=== PATIENT | male | born 1980 | race African-American/Black ===

== ENCOUNTER 2018-01-14 12:33 | Inpatient (IN) | payer OTHER ==
[2018-01-14 12:57] VITALS: BMI 26.6
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
[2018-01-14] MEDS ORDERED: MAGNESIUM CITRATE 300 ML BOTTLE PO PRN (16:02)
[2018-01-14] MEDS ORDERED: P-EPHED 60MG/TRIPROLIDI 2.5MG TABLET PO PRN (16:02)
[2018-01-14] MEDS ORDERED: ACETAMINOPHEN 325 MG TABLET (FP) PO PRN (16:02)
[2018-01-14] MEDS ORDERED: MAG HYDROX/AL HYDROX/SIMETH 30 ML UNIT-DOSE CUP PO PRN (16:02)
[2018-01-14] MEDS ORDERED: MAGNESIUM HYDROX 2400MG/30ML ORAL SUSPENSION 30 ML CUP PO PRN (16:02)
[2018-01-14] MEDS ORDERED: NICOTINE POLACRILEX 2 MG GUM BC PRN (16:02)
[2018-01-14] MEDS ORDERED: chlordiazePOXIDE HCL 25 MG CAPSULE PO PRN (16:02)
[2018-01-14] MEDS ORDERED: guaiFENesin/D-METHORPHAN HB 10 ML UNIT-DOSE CUPS PO PRN (16:02)
[2018-01-14] MEDS ORDERED: LOPERAMIDE HCL 2 MG CAPSULE PO PRN (16:02)
[2018-01-14] MEDS ORDERED: MENTHOL/PHENOL 1 EACH UD MM PRN (16:02)
[2018-01-14] MEDS ORDERED: IBUPROFEN 400 MG TABLET (FP) PO PRN (16:02)
[2018-01-14] MEDS ORDERED: COLLOIDAL OATMEAL 1 BAR EACH TP PRN (16:08)
[2018-01-14] MEDS: chlordiazePOXIDE HCL 25 MG CAPSULE PO SCH ×2 (18:48→23:15)
[2018-01-14] MEDS: INSULIN SLIDING SCALE (NOVOLOG) 1 VIAL SQ SCH ×2 (18:53→22:59)
[2018-01-14] MEDS: NICOTINE 14 MG/24 HOURS TOPICAL PATCH TD SCH (18:54)
[2018-01-14] MEDS ORDERED: MINERAL OIL/PETROLAT/WATER TOPICAL CREAM 113 GM JAR TP SCH (22:00)
[2018-01-14] MEDS ORDERED: THIAMINE HCL 100 MG TABLET (FP) PO SCH (22:00)
[2018-01-14] MEDS ORDERED: MELATONIN 5 MG TABLETS PO PRN (22:00)
[2018-01-14] MEDS ORDERED: INSULIN (NOVOLOG) ASPART 100 UNITS/ML 10ML VIAL ONE (22:26)
[2018-01-15] MEDS: chlordiazePOXIDE HCL 25 MG CAPSULE PO SCH ×2 (06:35→10:36)
[2018-01-15] MEDS ORDERED: metFORMIN HCL 500 MG TABLET (FP) PO SCH (07:00)
[2018-01-15] MEDS: INSULIN SLIDING SCALE (NOVOLOG) 1 VIAL SQ SCH ×2 (07:28→12:15)
--- NOTE | 2018-01-15 09:34 | CONSULT ---
[facility] Psychiatric Consult - Data Date of interview: 01/15/18 Admission source: [facility] Identifying data: Readmision to [facility] for this 37 y/o AA male seeking detoxtreatment on for cocaine and alcohol dependence.Patient is single, a father of two,homeless,unemployed and supported on Public Assistance. Substance Abuse History: Confirmed by the patient in this interview.Smoking history: Current every day smoker. Have you smoked in the past 12 months: Yes. Aproximately how many cigarettes per day: 8. Cigars Per Day: 0. Hx Chewing Tobacco Use: No. Initiated information on smoking cessation: Yes. 'Breaking Loose' booklet given: 01/14/18. - Substance & Tx. History. Hx Alcohol Use: Yes. Hx Substance Use: Yes. Substance Use Type: Cocaine, Tranquilizers. Hx Substance Use Treatment: Yes (08/2015 [facility]). - Substances Abused. Crack. Route: Smoking. Frequency: Daily. Amount used: $300. Age of first use : 23. Date of Last Use: 01/14/18. Alcohol-vodka. Route: Oral. Frequency: Daily. Amount used: 3 pts. Age of first use: 16. Date of Last Use: 01/14/18 Medical History: Diabetes mellitus,antecedent of withdrawal-related seizures and past treatment for gonorrhea + syphilis. Psychiatric History: Patient presents with a history of multiple psychiatric hospitalizations ([facility] and [facility]).Diagnosed with Schizophrenia (age 5) and ADHD at age 16. Mr [place] reports maintenance on haldol decanoate (dose not recalled).States that he gets his injection on a monthly basis at the [facility] clinic in [facility]. Admits to a history of suicide attempt via self-mutilation (2008). Physical/Sexual Abuse/Trauma History: Patient denies. Additional Comment: Urine Drug Screen Results: NINA-Cocaine, BZO- Benzodiazepines.Noted. Mental Status Exam - Mental Status Exam Alert and Oriented to: Time, Place, Person Cognitive Function: Grossly Intact Patient Appearance: Disheveled Mood: Nervous, Withdrawn Affect: Mood Congruent, Constricted Patient Behavior: Fatigued, Cooperative Speech Pattern: Delayed, Slurred Voice Loudness: Normal Thought Process: Goal Oriented Thought Disorder: Bizarre Hallucinations: Denies Suicidal Ideation: Denies Homicidal Ideation: Denies Insight/Judgement: Poor Sleep: Well Appetite: Good Muscle strength/Tone: Normal Gait/Station: Normal Psychiatric Findings - Problem List ([place] 1, 2,3) (1) Cocaine dependence with withdrawal Current Visit: No Status: Acute (2) Alcohol dependence with uncomplicated withdrawal Current Visit: Yes Status: Acute (3) Nicotine dependence Current Visit: Yes Status: Acute Qualifiers: Nicotine product type: cigarettes Substance use status: in withdrawal Qualified Code(s): F17.213 - Nicotine dependence, cigarettes, with withdrawal (4) Paranoid schizophrenia Current Visit: Yes Status: Chronic (5) ADHD (attention deficit hyperactivity disorder) Current Visit: Yes Status: Chronic - Initial Treatment Plan Initial Treatment Plan: Psychoeducation.Sleep hygiene.Detoxification.Observation.Will hold haloperidol until more information becomes available (doses,pattern of compliance,providers).
[2018-01-15] MEDS ORDERED: PRENATAL VITAMINS W/ FOLIC ACID TABLET (FP) PO SCH (10:00)
[2018-01-15] MEDS: NICOTINE 14 MG/24 HOURS TOPICAL PATCH TD SCH (10:36)
--- NOTE | 2018-01-15 12:46 | EKG ---
Test Reason : Blood Pressure : / mmHG Vent. Rate : 066 BPM Atrial Rate : 066 BPM P-R Int : 162 ms QRS Dur : 078 ms QT Int : 412 ms P-R-T Axes : 053 044 003 degrees QTc Int : 431 ms NORMAL SINUS RHYTHM NORMAL ECG NO PREVIOUS ECGS AVAILABLE Confirmed by MARIA DEL ROSARIO DILLARD, MOR ([id number]) on 01/15/2018 12:46:22 PM Referred By: Confirmed By:MOR MIX MD
[2018-01-15 13:58] VITALS: BP 105/63; PULSE 69; TEMP 97.3
--- NOTE | 2018-01-15 14:20 | PN ---
[facility] CIWA - CIWA Score Nausea/Vomitin-No Nausea/No Vomiting Muscle Tremors: 4-Moderate,w/Arms Extend Anxiety: 4-Mod. Anxious/Guarded Agitation: 3 Paroxysmal Sweats: 3 Orientation: 0-Oriented Tacttile Disturbances: 2-Mild Itch/Numbness/Burn Auditory Disturbances: 0-None Visual Disturbances: 1-Very Mild Sensitivity Headache: 0-None Present CIWA-Ar Total Score: 17 BHS Progress Note (SOAP) Subjective: Tremors, Sweating, Anxious. Objective: PATIENT A & O X 3, OBSERVED AMBULATING ON UNIT. NO ACUTE DISTRESS. 01/15/18 14:21 Vital Signs Temperature 97.3 F L 01/15/18 13:56 Pulse Rate 69 01/15/18 13:56 Respiratory Rate 18 01/15/18 13:56 Blood Pressure 105/63 01/15/18 13:56 O2 Sat by Pulse Oximetry (%) Laboratory Tests 01/14/18 01/14/18 01/15/18 16:10 20:51 06:24 POC Glucometer 163 224 176 ADMISSION LAB RESULTS PENDING. 01/15/18 14:22 Assessment: 01/15/18 14:22 WITHDRAWAL SYMPTOMS. Plan: CONTINUE DETOX. INCREASE DAILY PO FLUID INTAKE.
--- NOTE | 2018-01-15 16:36 | DS ---
[facility] Detox Discharge Summary Admission Date: 01/14/18 Discharge Date: 01/15/18 - History Present History: Alcohol Dependence, Sedative Dependence Additional Comments: PATIENT DOES NOT WISH TO STAY TO COMPLETE DETOX REGIMEN. RISKS OF LEAVING DETOX UNIT AGAINST MEDICAL ADVICE AND PRIOR TO COMPLETION OF DETOX REGIMEN EXPLAINED TO PATIENT. PATIENT ADVISED TO GO IMMEDIATELY TO NEAREST ER SHOULD ANY INTOLERABLE DETOX SYMPTOMS DEVELOP AT ANY TIME. PATIENT LEFT DETOX UNIT IN STABLE MEDICAL CONDITION. Pertinent Past History: Type II DM, History of Schizophrenia (Paranoid Type),History of Seizure (ETOH- Related), History of Depression, Nicotine Dependence, History of A.D.H.D. - Physical Exam Results Vital Signs: Vital Signs Temperature 97.3 F L 01/15/18 13:56 Pulse Rate 69 01/15/18 13:56 Respiratory Rate 18 01/15/18 13:56 Blood Pressure 105/63 01/15/18 13:56 O2 Sat by Pulse Oximetry (%) Pertinent Admission Physical Exam Findings: WITHDRAWAL SYMPTOMS. Laboratory Tests 01/14/18 01/14/18 01/15/18 16:10 20:51 06:24 POC Glucometer 163 224 176 ADMISSION LAB RESULTS PENDING. 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
[2018-01-15] MEDS ORDERED: chlordiazePOXIDE HCL 25 MG CAPSULE PO SCH (17:00)
[2018-01-16] MEDS ORDERED: chlordiazePOXIDE 5 MG CAPSULE PO SCH (17:00)
[2018-01-17] MEDS ORDERED: chlordiazePOXIDE HCL 10 MG CAPSULE PO SCH (17:00)
== END 2018-01-15 16:03 | disposition left against medical advice (07) | DRG 770 ==
LOC: YASAS 12:33 → Y3N 16:50
PROVIDERS: ADMIT Surgery; ATTEND Surgery
PROC: HZ2ZZZZ Detoxification Services for Substance Abuse Treatment (ICD-10-PCS; principal; 2018-01-14)
DX: F10.230 Alcohol dependence with withdrawal, uncomplicated (principal); F13.20 Sedative, hypnotic or anxiolytic dependence, uncomplicated; F14.23 Cocaine dependence with withdrawal; F17.210 Nicotine dependence, cigarettes, uncomplicated; F90.9 Attention-deficit hyperactivity disorder, unspecified type; F20.0 Paranoid schizophrenia; F32.9 Major depressive disorder, single episode, unspecified; E11.9 Type 2 diabetes mellitus without complications; Z79.84 Long term (current) use of oral hypoglycemic drugs; Z86.19 Personal history of other infectious and parasitic diseases; Z91.018 Allergy to other foods
CPT/HCPCS: 82962; 93005; 93010

== ENCOUNTER 2018-02-26 12:20 | Inpatient (IN) | payer OTHER ==
[2018-02-26 12:48] VITALS: BMI 29.0
[2018-02-26] MEDS ORDERED: PNEUMOC 13-VAL CONJ-DIP CRM/PF 0.5 ML DISP.SYRIN IM ONE (13:32)
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
[2018-02-26] MEDS ORDERED: hydrOXYzine PAMOATE 25 MG CAPSULE (FP) PO PRN (14:48)
[2018-02-26] MEDS ORDERED: P-EPHED 60MG/TRIPROLIDI 2.5MG TABLET PO PRN (14:48)
[2018-02-26] MEDS ORDERED: LOPERAMIDE HCL 2 MG CAPSULE PO PRN (14:48)
[2018-02-26] MEDS ORDERED: MAGNESIUM CITRATE 300 ML BOTTLE PO PRN (14:48)
[2018-02-26] MEDS ORDERED: MENTHOL/PHENOL 1 EACH UD MM PRN (14:48)
[2018-02-26] MEDS ORDERED: ACETAMINOPHEN 325 MG TABLET (FP) PO PRN (14:48)
[2018-02-26] MEDS ORDERED: guaiFENesin/D-METHORPHAN HB 10 ML UNIT-DOSE CUPS PO PRN (14:48)
[2018-02-26] MEDS ORDERED: chlordiazePOXIDE HCL 25 MG CAPSULE PO PRN (14:48)
[2018-02-26] MEDS ORDERED: MAGNESIUM HYDROX 2400MG/30ML ORAL SUSPENSION 30 ML CUP PO PRN (14:48)
[2018-02-26] MEDS ORDERED: IBUPROFEN 400 MG TABLET (FP) PO PRN (14:48)
[2018-02-26] MEDS ORDERED: MAG HYDROX/AL HYDROX/SIMETH 30 ML UNIT-DOSE CUP PO PRN (14:48)
[2018-02-26] MEDS: INSULIN SLIDING SCALE (NOVOLOG) 1 VIAL SQ SCH (17:50)
[2018-02-26] MEDS ORDERED: INSULIN (NOVOLOG) ASPART 100 UNITS/ML 10ML VIAL ONE (17:53)
[2018-02-26] MEDS: chlordiazePOXIDE HCL 25 MG CAPSULE PO SCH ×2 (17:54→22:20)
[2018-02-26] MEDS: metFORMIN HCL 500 MG TABLET (FP) PO SCH (17:54)
[2018-02-26] MEDS ORDERED: MELATONIN 5 MG TABLETS PO PRN (22:00)
[2018-02-26] MEDS: THIAMINE HCL 100 MG TABLET (FP) PO SCH (22:20)
[2018-02-27 00:01] LABS: URINE APPEARANCE SLCLOUDY; URINE BILIRUBIN NEGATIVE (<2.0 mg/dL); URINE COLOR YELLOW; URINE GLUCOSE (UA) NEGATIVE (NEGATIVE); URINE KETONE NEGATIVE (NEGATIVE); URINE LEUK ESTERASE NEGATIVE (NEGATIVE); URINE NITRITE NEGATIVE (NEGATIVE); URINE PROTEIN NEGATIVE (NEGATIVE); URINE UROBILINOGEN NEGATIVE mg/dL (0.2-1.0)
[2018-02-27] MEDS: chlordiazePOXIDE HCL 25 MG CAPSULE PO SCH ×4 (06:41→23:17)
[2018-02-27] MEDS: metFORMIN HCL 500 MG TABLET (FP) PO SCH ×2 (06:42→23:16)
[2018-02-27] MEDS ORDERED: INSULIN (NOVOLOG) ASPART 100 UNITS/ML 10ML VIAL ONE (06:45)
[2018-02-27] MEDS: INSULIN SLIDING SCALE (NOVOLOG) 1 VIAL SQ SCH ×2 (07:00→20:49)
[2018-02-27] MEDS: PRENATAL VITAMINS W/ FOLIC ACID TABLET (FP) PO SCH (10:26)
[2018-02-27] MEDS ORDERED: PNEUMOCOCCAL 23 VACCINE 0.5 ML VIAL IM ONE (12:00)
--- NOTE | 2018-02-27 12:18 | EKG ---
Test Reason : Blood Pressure : / mmHG Vent. Rate : 070 BPM Atrial Rate : 070 BPM P-R Int : 172 ms QRS Dur : 074 ms QT Int : 378 ms P-R-T Axes : 055 048 013 degrees QTc Int : 408 ms NORMAL SINUS RHYTHM NORMAL ECG WHEN COMPARED WITH ECG OF 14-JAN-2018 18:34, NO SIGNIFICANT CHANGE WAS FOUND Confirmed by JUNITO ORTEGA MD ([id number]) on 02/27/2018 12:18:18 PM Referred By: Confirmed By:JUNITO ORTEGA MD
--- NOTE | 2018-02-27 13:25 | PN ---
S CIWA - CIWA Score Nausea/Vomitin Muscle Tremors: 3 Anxiety: 3 Agitation: 2 Paroxysmal Sweats: 1-Minimal Palms Moist Orientation: 0-Oriented Tacttile Disturbances: 1-Very Mild Itch/Numbness Auditory Disturbances: 1-Very Mild Visual Disturbances: 0-None Headache: 2-Mild CIWA-Ar Total Score: 16 BHS Progress Note (SOAP) Subjective: alert,irritable,anxious,interrupted sleep,tremor,pain in the body and back Objective: 02/27/18 13:22 Vital Signs Temperature 97.5 F L 02/27/18 13:18 Pulse Rate 80 02/27/18 13:18 Respiratory Rate 18 02/27/18 13:18 Blood Pressure 119/69 02/27/18 13:18 O2 Sat by Pulse Oximetry (%) ekg nsr,normal ecg rate 70/min qt/qtc 378/408 Laboratory Last Values POC Glucometer 163 UNITS (80-120) 02/27/18 06:40 Urine Color Yellow 02/26/18 Unknown Urine Appearance Slcloudy 02/26/18 Unknown Urine pH 5.0 (5.0-8.0) 02/26/18 Unknown Ur Specific [place] 1.018 (1.001-1.035) 02/26/18 Unknown Urine Protein Negative (NEGATIVE) 02/26/18 Unknown Urine Glucose (UA) Negative (NEGATIVE) 02/26/18 Unknown Urine Ketones Negative (NEGATIVE) 02/26/18 Unknown Urine Blood Negative (NEGATIVE) 02/26/18 Unknown Urine Nitrite Negative (NEGATIVE) 02/26/18 Unknown Urine Bilirubin Negative (<2.0 mg/dL) 02/26/18 Unknown Urine Urobilinogen Negative mg/dL (0.2-1.0) 02/26/18 Unknown Ur Leukocyte Esterase Negative (NEGATIVE) 02/26/18 Unknown labs pending Assessment: 02/27/18 13:24 withdrawal symptom Plan: continue detox,bgm monitoring
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
[2018-02-27] MEDS: QUEtiapine FUMARATE 100 MG TABLET (FP) PO SCH (23:17)
[2018-02-27] MEDS: THIAMINE HCL 100 MG TABLET (FP) PO SCH (23:17)
[2018-02-28] MEDS: metFORMIN HCL 500 MG TABLET (FP) PO SCH ×2 (06:09→17:26)
[2018-02-28] MEDS: INSULIN SLIDING SCALE (NOVOLOG) 1 VIAL SQ SCH ×2 (06:11→17:26)
[2018-02-28] MEDS: chlordiazePOXIDE HCL 25 MG CAPSULE PO SCH ×2 (06:11→11:02)
[2018-02-28 10:53] LABS: HEMATOCRIT 38.5 % (35.4-49); HEMOGLOBIN 12.4 GM/dL (11.7-16.9); MCH 27.1 pg (25.7-33.7); MCHC 32.1 g/dl (32.0-35.9); MEAN CELL VOLUME 84.3 fl (80-96); PLATELET COUNT 243 K/MM3 (134-434); RBC 4.57 M/mm3 (4.00-5.60); WHITE BLOOD COUNT 5.6 K/mm3 (4.0-10.0)
[2018-02-28] MEDS: PRENATAL VITAMINS W/ FOLIC ACID TABLET (FP) PO SCH (11:02)
--- NOTE | 2018-02-28 11:02 | PN ---
S CIWA - CIWA Score Nausea/Vomitin Muscle Tremors: 3 Anxiety: 2 Agitation: 2 Paroxysmal Sweats: 1-Minimal Palms Moist Orientation: 0-Oriented Tacttile Disturbances: 1-Very Mild Itch/Numbness Auditory Disturbances: 1-Very Mild Visual Disturbances: 0-None Headache: 2-Mild CIWA-Ar Total Score: 15 BHS Progress Note (SOAP) Subjective: alert,irritable,anxious,interrupted sleep,pain in the body Objective: 02/28/18 11:00 Vital Signs Temperature 97.5 F L 02/28/18 06:00 Pulse Rate 68 02/28/18 06:00 Respiratory Rate 18 02/28/18 06:00 Blood Pressure 118/77 02/28/18 06:00 O2 Sat by Pulse Oximetry (%) 02/28/18 11:00 Laboratory Last Values POC Glucometer 146 UNITS (80-120) 02/28/18 06:08 Urine Color Yellow 02/26/18 Unknown Urine Appearance Slcloudy 02/26/18 Unknown Urine pH 5.0 (5.0-8.0) 02/26/18 Unknown Ur Specific [place] 1.018 (1.001-1.035) 02/26/18 Unknown Urine Protein Negative (NEGATIVE) 02/26/18 Unknown Urine Glucose (UA) Negative (NEGATIVE) 02/26/18 Unknown Urine Ketones Negative (NEGATIVE) 02/26/18 Unknown Urine Blood Negative (NEGATIVE) 02/26/18 Unknown Urine Nitrite Negative (NEGATIVE) 02/26/18 Unknown Urine Bilirubin Negative (<2.0 mg/dL) 02/26/18 Unknown Urine Urobilinogen Negative mg/dL (0.2-1.0) 02/26/18 Unknown Ur Leukocyte Esterase Negative (NEGATIVE) 02/26/18 Unknown labs pending Assessment: 02/28/18 11:01 withdrawal symptom Plan: continue detox,bgm monitoring
[2018-02-28 11:07] LABS: CHLORIDE 105 mmol/L (98-107); POTASSIUM 4.5 mmol/L (3.5-5.1); SODIUM 141 mmol/L (136-145)
[2018-02-28 11:15] LABS: ALBUMIN 3.6 g/dl (3.4-5.0); ALK PHOS 62 U/L (45-117); ANION GAP 9 MMOL/L (8-16); BILIRUBIN,TOTAL 0.1 mg/dL (0.2-1.0); BLOOD UREA NITROGEN 9 mg/dL (7-18); CALCIUM 8.5 mg/dL (8.5-10.1); CO2 27 mmol/L (21-32); CREATININE 0.9 mg/dL (0.7-1.3); GLUCOSE,RANDOM 197 mg/dL (74-106); SGOT/AST 12 U/L (15-37); SGPT/ALT 16 U/L (12-78); TOT PROT 7.3 g/dl (6.4-8.2)
[2018-02-28] MEDS: chlordiazePOXIDE 5 MG CAPSULE PO SCH ×2 (17:27→23:43)
[2018-02-28] MEDS: QUEtiapine FUMARATE 100 MG TABLET (FP) PO SCH (23:42)
[2018-02-28] MEDS: THIAMINE HCL 100 MG TABLET (FP) PO SCH (23:42)
[2018-03-01] MEDS: chlordiazePOXIDE 5 MG CAPSULE PO SCH (06:13)
[2018-03-01] MEDS: metFORMIN HCL 500 MG TABLET (FP) PO SCH (07:14)
[2018-03-01] MEDS ORDERED: INSULIN (NOVOLOG) ASPART 100 UNITS/ML 10ML VIAL ONE (07:15)
[2018-03-01] MEDS: INSULIN SLIDING SCALE (NOVOLOG) 1 VIAL SQ SCH (07:18)
[2018-03-01 09:13] VITALS: BP 132/81; PULSE 90; TEMP 97.7
--- NOTE | 2018-03-01 09:33 | DS ---
[facility] Detox Discharge Summary Admission Date: 02/26/18 Discharge Date: 03/01/18 - History Present History: Alcohol Dependence Additional Comments: 37 years old male admitted for alcohol withdrawal sx reported feeling better denies alcohol withdrawal sx alert oriented x 3 no acute distress [facility] - Physical Exam Results Vital Signs: Vital Signs Temperature 97.7 F 03/01/18 09:13 Pulse Rate 90 03/01/18 09:13 Respiratory Rate 18 03/01/18 09:13 Blood Pressure 132/81 03/01/18 09:13 O2 Sat by Pulse Oximetry (%) Pertinent Admission Physical Exam Findings: alcohol withdrawal sx Vital Signs Temperature 97.7 F 03/01/18 09:13 Pulse Rate 90 03/01/18 09:13 Respiratory Rate 18 03/01/18 09:13 Blood Pressure 132/81 03/01/18 09:13 O2 Sat by Pulse Oximetry (%) Laboratory Last Values WBC 5.6 K/mm3 (4.0-10.0) 02/28/18 07:00 RBC 4.57 M/mm3 (4.00-5.60) 02/28/18 07:00 Hgb 12.4 GM/dL (11.7-16.9) 02/28/18 07:00 Hct 38.5 % (35.4-49) 02/28/18 07:00 MCV 84.3 fl (80-96) 02/28/18 07:00 MCH 27.1 pg (25.7-33.7) 02/28/18 07:00 MCHC 32.1 g/dl (32.0-35.9) 02/28/18 07:00 RDW 15.0 % (11.9-15.9) 02/28/18 07:00 Plt Count 243 K/MM3 (134-434) 02/28/18 07:00 MPV 8.0 fl (7.5-11.1) 02/28/18 07:00 Sodium 141 mmol/L (136-145) 02/28/18 07:00 Potassium 4.5 mmol/L (3.5-5.1) 02/28/18 07:00 Chloride 105 mmol/L (98-107) 02/28/18 07:00 Carbon Dioxide 27 mmol/L (21-32) 02/28/18 07:00 Anion Gap 9 MMOL/L (8-16) 02/28/18 07:00 BUN 9 mg/dL (7-18) 02/28/18 07:00 Creatinine 0.9 mg/dL (0.7-1.3) 02/28/18 07:00 Creat Clearance w eGFR > 60 (>60) 02/28/18 07:00 POC Glucometer 198 UNITS (80-120) 03/01/18 07:04 Random Glucose 197 mg/dL (74-106) H 02/28/18 07:00 Calcium 8.5 mg/dL (8.5-10.1) 02/28/18 07:00 Total Bilirubin 0.1 mg/dL (0.2-1.0) L 02/28/18 07:00 AST 12 U/L (15-37) L 02/28/18 07:00 ALT 16 U/L (12-78) 02/28/18 07:00 Alkaline Phosphatase 62 U/L (45-117) 02/28/18 07:00 Total Protein 7.3 g/dl (6.4-8.2) 02/28/18 07:00 Albumin 3.6 g/dl (3.4-5.0) 02/28/18 07:00 Urine Color Yellow 02/26/18 Unknown Urine Appearance Slcloudy 02/26/18 Unknown Urine pH 5.0 (5.0-8.0) 02/26/18 Unknown Ur Specific [place] 1.018 (1.001-1.035) 02/26/18 Unknown Urine Protein Negative (NEGATIVE) 02/26/18 Unknown Urine Glucose (UA) Negative (NEGATIVE) 02/26/18 Unknown Urine Ketones Negative (NEGATIVE) 02/26/18 Unknown Urine Blood Negative (NEGATIVE) 02/26/18 Unknown Urine Nitrite Negative (NEGATIVE) 02/26/18 Unknown Urine Bilirubin Negative (<2.0 mg/dL) 02/26/18 Unknown Urine Urobilinogen Negative mg/dL (0.2-1.0) 02/26/18 Unknown Ur Leukocyte Esterase Negative (NEGATIVE) 02/26/18 Unknown RPR Titer Nonreactive (NONREACTIVE) 02/28/18 07:00 HIV 1&2 Antibody Screen Negative 02/27/18 07:00 HIV P24 Antigen Negative 02/27/18 07:00 lab noted patient was informed regarding alcohol related medical and mental complications - Treatment Hospital Course: Detox Protocol Followed, Detoxed Safely, Responded well, Discharged Condition Good, Rehab Referral Accepted Patient has Accepted a Rehab Referral to: [facility] - Medication Discharge Medications: Ambulatory Orders Metformin HCl [Glucophage] 1,000 mg PO DAILY 01/14/18 Quetiapine Fumarate [Seroquel] 100 mg PO HS 02/26/18 - Diagnosis (1) Alcohol dependence with uncomplicated withdrawal Current Visit: Yes Status: Acute (2) Nicotine dependence Current Visit: Yes Status: Acute Qualifiers: Nicotine product type: cigarettes Substance use status: in withdrawal Qualified Code(s): F17.213 - Nicotine dependence, cigarettes, with withdrawal (3) Schizophrenia Current Visit: Yes Status: Suspected Qualifiers: Schizophrenia type: unspecified Qualified Code(s): F20.9 - Schizophrenia, unspecified (4) Diabetes mellitus type II, controlled Current Visit: Yes Status: Chronic Qualifiers: Diabetes mellitus correction insulin use: without correction use Diabetes mellitus complication status: without complication Qualified Code(s): E11.9 - Type 2 diabetes mellitus without complications - AMA Did Patient Leave Against Medical Advice: No
[2018-03-01] MEDS ORDERED: chlordiazePOXIDE HCL 10 MG CAPSULE PO SCH (17:00)
== END 2018-03-01 09:26 | disposition home or self-care (01) | DRG 774 ==
LOC: YASAS 12:20 → Y6N 16:06
PROC: HZ2ZZZZ Detoxification Services for Substance Abuse Treatment (ICD-10-PCS; principal; 2018-02-26)
DX: F10.232 Alcohol dependence with withdrawal with perceptual disturbance (principal); F14.23 Cocaine dependence with withdrawal; F17.213 Nicotine dependence, cigarettes, with withdrawal; F32.9 Major depressive disorder, single episode, unspecified; F20.9 Schizophrenia, unspecified; G40.509 Epileptic seizures related to external causes, not intractable, without status epilepticus; E11.9 Type 2 diabetes mellitus without complications; Z79.4 Long term (current) use of insulin; Z79.84 Long term (current) use of oral hypoglycemic drugs; R55 Syncope and collapse
CPT/HCPCS: 36415; 80053; 81003; 82962; 85027; 86593; 87389; 93005; 93010

== ENCOUNTER 2018-05-06 12:56 | Inpatient (IN) | payer OTHER ==
[2018-05-06 14:55] VITALS: BMI 29.7
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
[2018-05-06] MEDS ORDERED: MAG HYDROX/AL HYDROX/SIMETH 30 ML UNIT-DOSE CUP PO PRN (15:48)
[2018-05-06] MEDS ORDERED: MENTHOL/PHENOL 1 EACH UD MM PRN (15:48)
[2018-05-06] MEDS ORDERED: MAGNESIUM CITRATE 300 ML BOTTLE PO PRN (15:48)
[2018-05-06] MEDS ORDERED: MAGNESIUM HYDROX 2400MG/30ML ORAL SUSPENSION 30 ML CUP PO PRN (15:48)
[2018-05-06] MEDS ORDERED: LOPERAMIDE HCL 2 MG CAPSULE PO PRN (15:48)
[2018-05-06] MEDS ORDERED: hydrOXYzine PAMOATE 50 MG CAPSULE (FP) PO PRN (15:48)
[2018-05-06] MEDS ORDERED: P-EPHED 60MG/TRIPROLIDI 2.5MG TABLET PO PRN (15:48)
[2018-05-06] MEDS ORDERED: IBUPROFEN 400 MG TABLET (FP) PO PRN (15:48)
[2018-05-06] MEDS ORDERED: NICOTINE POLACRILEX 2 MG GUM BC PRN (15:48)
[2018-05-06] MEDS ORDERED: guaiFENesin/D-METHORPHAN HB 10 ML UNIT-DOSE CUPS PO PRN (15:48)
[2018-05-06] MEDS ORDERED: chlordiazePOXIDE HCL 25 MG CAPSULE PO PRN (15:48)
[2018-05-06] MEDS ORDERED: ACETAMINOPHEN 325 MG TABLET (FP) PO PRN (15:48)
[2018-05-06] MEDS ORDERED: chlordiazePOXIDE HCL 25 MG CAPSULE PO ONE (17:30)
[2018-05-06] MEDS: INSULIN SLIDING SCALE (NOVOLOG) 1 VIAL SQ SCH (19:17)
[2018-05-06] MEDS ORDERED: MELATONIN 5 MG TABLETS PO PRN (22:00)
[2018-05-06] MEDS: chlordiazePOXIDE HCL 25 MG CAPSULE PO SCH (22:49)
[2018-05-06] MEDS: THIAMINE HCL 100 MG TABLET (FP) PO SCH (22:49)
[2018-05-07] MEDS: chlordiazePOXIDE HCL 25 MG CAPSULE PO SCH ×4 (06:26→22:42)
[2018-05-07] MEDS ORDERED: INSULIN (NOVOLOG) ASPART 100 UNITS/ML 10ML VIAL ONE ×2 (07:37→17:23)
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
[2018-05-07] MEDS: INSULIN SLIDING SCALE (NOVOLOG) 1 VIAL SQ SCH ×3 (07:47→17:25)
--- NOTE | 2018-05-07 09:52 | EKG ---
Test Reason : Blood Pressure : / mmHG Vent. Rate : 069 BPM Atrial Rate : 069 BPM P-R Int : 160 ms QRS Dur : 074 ms QT Int : 418 ms P-R-T Axes : 061 066 040 degrees QTc Int : 447 ms NORMAL SINUS RHYTHM NONSPECIFIC ST AND T WAVE ABNORMALITY ABNORMAL ECG WHEN COMPARED WITH ECG OF 26-FEB-2018 16:47, NO SIGNIFICANT CHANGE WAS FOUND Confirmed by MARIA DEL ROSARIO DILLARD, MOR ([id number]) on 05/07/2018 9:52:12 AM Referred By: Confirmed By:MOR MIX MD
[2018-05-07] MEDS ORDERED: PRENATAL VITAMINS W/ FOLIC ACID TABLET (FP) PO SCH (10:00)
[2018-05-07] MEDS ORDERED: NICOTINE 14 MG/24 HOURS TOPICAL PATCH TD SCH (10:00)
[2018-05-07 10:30] LABS: RDW 16.1 % (11.9-15.9)
[2018-05-07 10:33] LABS: HEMATOCRIT 40.4 % (35.4-49); MCH 27.4 pg (25.7-33.7); MCHC 32.1 g/dl (32.0-35.9); MEAN CELL VOLUME 85.4 fl (80-96); PLATELET COUNT 271 K/MM3 (134-434); RBC 4.74 M/mm3 (4.00-5.60); WHITE BLOOD COUNT 5.2 K/mm3 (4.0-10.0)
--- NOTE | 2018-05-07 10:43 | PN ---
S CIWA - CIWA Score Nausea/Vomitin-Mild Nausea/No Vomiting Muscle Tremors: 3 Anxiety: 2 Agitation: 2 Paroxysmal Sweats: 1-Minimal Palms Moist Orientation: 0-Oriented Tacttile Disturbances: 1-Very Mild Itch/Numbness Auditory Disturbances: 1-Very Mild Visual Disturbances: 0-None Headache: 1-Very Mild CIWA-Ar Total Score: 12 BHS Progress Note (SOAP) Subjective: sweat tremor anxiety restlessness irritable Objective: 05/07/18 10:40 Vital Signs Temperature 96.4 F L 05/07/18 09:32 Pulse Rate 62 05/07/18 09:32 Respiratory Rate 18 05/07/18 09:32 Blood Pressure 104/55 L 05/07/18 09:32 O2 Sat by Pulse Oximetry (%) Laboratory Last Values WBC 5.2 K/mm3 (4.0-10.0) 05/07/18 07:00 RBC 4.74 M/mm3 (4.00-5.60) 05/07/18 07:00 Hgb 13.0 GM/dL (11.7-16.9) 05/07/18 07:00 Hct 40.4 % (35.4-49) 05/07/18 07:00 MCV 85.4 fl (80-96) 05/07/18 07:00 MCH 27.4 pg (25.7-33.7) 05/07/18 07:00 MCHC 32.1 g/dl (32.0-35.9) 05/07/18 07:00 RDW 16.1 % (11.9-15.9) H 05/07/18 07:00 Plt Count 271 K/MM3 (134-434) 05/07/18 07:00 MPV 8.0 fl (7.5-11.1) 05/07/18 07:00 POC Glucometer 338 UNITS (80-120) 05/07/18 06:23 lab noted Assessment: 05/07/18 10:41 withdrawal sx Plan: continue detox
[2018-05-07 11:02] LABS: ALBUMIN 3.4 g/dl (3.4-5.0); ALK PHOS 90 U/L (45-117); ANION GAP 9 MMOL/L (8-16); BILIRUBIN,TOTAL 0.2 mg/dL (0.2-1); BLOOD UREA NITROGEN 8 mg/dL (7-18); CALCIUM 8.3 mg/dL (8.5-10.1); CHLORIDE 105 mmol/L (98-107); CO2 28 mmol/L (21-32); CREATININE 0.8 mg/dL (0.55-1.3); SGOT/AST 10 U/L (15-37); SGPT/ALT 18 U/L (13-61); SODIUM 142 mmol/L (136-145)
[2018-05-07 11:06] LABS: GLUCOSE,RANDOM 304 mg/dL (74-106)
[2018-05-07] MEDS ORDERED: QUEtiapine FUMARATE 100 MG TABLET (FP) PO SCH (22:00)
[2018-05-07] MEDS: THIAMINE HCL 100 MG TABLET (FP) PO SCH (22:43)
[2018-05-08] MEDS ORDERED: INSULIN (NOVOLOG) ASPART 100 UNITS/ML 10ML VIAL ONE (06:55)
[2018-05-08] MEDS: chlordiazePOXIDE HCL 25 MG CAPSULE PO SCH (07:40)
[2018-05-08] MEDS: INSULIN SLIDING SCALE (NOVOLOG) 1 VIAL SQ SCH (08:17)
[2018-05-08 09:26] VITALS: BP 129/72; PULSE 72; TEMP 98.7
--- NOTE | 2018-05-08 11:23 | DS ---
[facility] Detox Discharge Summary Admission Date: 05/06/18 Discharge Date: 05/08/18 - History Present History: Alcohol Dependence, Sedative Dependence Additional Comments: 38 years old male admitted on 05/06/18 for alcohol and benzo withdrawal sx insists to leave the detox facility that "I have to work" alert oriented x 3 no acute distress denies suicidal denies homocidal no self destructive behavior aftercare [facility] patient agrees to consider aftercare - Physical Exam Results Vital Signs: Vital Signs Temperature 98.7 F 05/08/18 09:26 Pulse Rate 72 05/08/18 09:26 Respiratory Rate 18 05/08/18 09:26 Blood Pressure 129/72 05/08/18 09:26 O2 Sat by Pulse Oximetry (%) Pertinent Admission Physical Exam Findings: alcohol and benzo withdrawal sx Vital Signs Temperature 98.7 F 05/08/18 09:26 Pulse Rate 72 05/08/18 09:26 Respiratory Rate 18 05/08/18 09:26 Blood Pressure 129/72 05/08/18 09:26 O2 Sat by Pulse Oximetry (%) Laboratory Last Values WBC 5.2 K/mm3 (4.0-10.0) 05/07/18 07:00 RBC 4.74 M/mm3 (4.00-5.60) 05/07/18 07:00 Hgb 13.0 GM/dL (11.7-16.9) 05/07/18 07:00 Hct 40.4 % (35.4-49) 05/07/18 07:00 MCV 85.4 fl (80-96) 05/07/18 07:00 MCH 27.4 pg (25.7-33.7) 05/07/18 07:00 MCHC 32.1 g/dl (32.0-35.9) 05/07/18 07:00 RDW 16.1 % (11.9-15.9) H 05/07/18 07:00 Plt Count 271 K/MM3 (134-434) 05/07/18 07:00 MPV 8.0 fl (7.5-11.1) 05/07/18 07:00 Sodium 142 mmol/L (136-145) 05/07/18 07:00 Potassium 4.0 mmol/L (3.5-5.1) 05/07/18 07:00 Chloride 105 mmol/L (98-107) 05/07/18 07:00 Carbon Dioxide 28 mmol/L (21-32) 05/07/18 07:00 Anion Gap 9 MMOL/L (8-16) 05/07/18 07:00 BUN 8 mg/dL (7-18) 05/07/18 07:00 Creatinine 0.8 mg/dL (0.55-1.3) 05/07/18 07:00 Creat Clearance w eGFR > 60 (>60) 05/07/18 07:00 POC Glucometer 280 UNITS (80-120) 05/08/18 06:50 Random Glucose 304 mg/dL (74-106) H* 05/07/18 07:00 Calcium 8.3 mg/dL (8.5-10.1) L 05/07/18 07:00 Total Bilirubin 0.2 mg/dL (0.2-1) 05/07/18 07:00 AST 10 U/L (15-37) L 05/07/18 07:00 ALT 18 U/L (13-61) 05/07/18 07:00 Alkaline Phosphatase 90 U/L (45-117) 05/07/18 07:00 Total Protein 7.0 g/dl (6.4-8.2) 05/07/18 07:00 Albumin 3.4 g/dl (3.4-5.0) 05/07/18 07:00 RPR Titer Nonreactive (NONREACTIVE) 05/07/18 07:00 HIV 1&2 Antibody Screen Negative 05/07/18 07:00 HIV P24 Antigen Negative 05/07/18 07:00 lab noted - Treatment Hospital Course: Detox Protocol Followed, Responded well Patient has Accepted a Rehab Referral to: jay[facility] - Medication Discharge Medications: Ambulatory Orders Metformin HCl [Glucophage] 1,000 mg PO DAILY #30 tablet 03/01/18 Quetiapine Fumarate [Seroquel] 100 mg PO HS #30 tablet 05/07/18 - Diagnosis (1) Alcohol dependence with uncomplicated withdrawal Current Visit: Yes Status: Acute (2) Nicotine dependence Current Visit: Yes Status: Acute Qualifiers: Nicotine product type: cigarettes Substance use status: in withdrawal Qualified Code(s): F17.213 - Nicotine dependence, cigarettes, with withdrawal (3) Sedative, hypnotic, or anxiolytic withdrawal Current Visit: Yes Status: Acute (4) Diabetes mellitus type II, controlled Current Visit: Yes Status: Chronic Qualifiers: Diabetes mellitus mcc insulin use: without mcc use Diabetes mellitus complication status: without complication Qualified Code(s): E11.9 - Type 2 diabetes mellitus without complications (5) Schizophrenia Current Visit: Yes Status: Suspected Qualifiers: Schizophrenia type: unspecified Qualified Code(s): F20.9 - Schizophrenia, unspecified - AMA Did Patient Leave Against Medical Advice: Yes
[2018-05-08] MEDS ORDERED: chlordiazePOXIDE 5 MG CAPSULE PO SCH (23:00)
[2018-05-09] MEDS ORDERED: chlordiazePOXIDE HCL 10 MG CAPSULE PO SCH (23:00)
== END 2018-05-08 10:20 | disposition left against medical advice (07) | DRG 770 ==
LOC: YASAS 12:56 → Y6N 17:07
PROC: HZ2ZZZZ Detoxification Services for Substance Abuse Treatment (ICD-10-PCS; principal; 2018-05-06)
DX: F10.230 Alcohol dependence with withdrawal, uncomplicated (principal); F13.230 Sedative, hypnotic or anxiolytic dependence with withdrawal, uncomplicated; F17.213 Nicotine dependence, cigarettes, with withdrawal; F20.0 Paranoid schizophrenia; F90.9 Attention-deficit hyperactivity disorder, unspecified type; E11.9 Type 2 diabetes mellitus without complications; Z79.84 Long term (current) use of oral hypoglycemic drugs; R63.4 Abnormal weight loss; Z68.29 Body mass index [BMI] 29.0-29.9, adult; Z86.69 Personal history of other diseases of the nervous system and sense organs; Z86.19 Personal history of other infectious and parasitic diseases
CPT/HCPCS: 36415; 80053; 82962; 85027; 86593; 87389; 93005; 93010

== ENCOUNTER 2019-04-14 16:22 | Inpatient (IN) | payer OTHER ==
[2019-04-14 18:32] VITALS: BMI 26.1
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
[2019-04-14] MEDS ORDERED: METHOCARBAMOL 500 MG TABLET PO PRN (22:29)
[2019-04-14] MEDS ORDERED: guaiFENesin 200 MG/10 ML 10 ML UNIT-DOSE CUPS PO PRN (22:29)
[2019-04-14] MEDS ORDERED: chlordiazePOXIDE HCL 25 MG CAPSULE PO PRN (22:29)
[2019-04-14] MEDS ORDERED: BISMUTH SUBSALICYLATE 524 MG/30 ML UD PO PRN (22:29)
[2019-04-14] MEDS ORDERED: hydrOXYzine PAMOATE 25 MG CAPSULE (FP) PO PRN (22:29)
[2019-04-14] MEDS ORDERED: ACETAMINOPHEN 325 MG TABLET (FP) PO PRN ×2 (22:29)
[2019-04-14] MEDS ORDERED: P-EPHED 60MG/TRIPROLIDI 2.5MG TABLET PO PRN (22:29)
[2019-04-14] MEDS ORDERED: MELATONIN 5 MG TABLETS PO PRN (22:29)
[2019-04-14] MEDS ORDERED: NICOTINE POLACRILEX 2 MG GUM BUC PRN (22:29)
[2019-04-14] MEDS ORDERED: MAG HYDROX/AL HYDROX/SIMETH 30 ML UNIT-DOSE CUP PO PRN (22:29)
[2019-04-14] MEDS ORDERED: ONDANSETRON *ODT* 4 MG TABLET SL PRN (22:29)
[2019-04-14] MEDS ORDERED: MENTHOL/PHENOL 1 EACH UD MM PRN (22:29)
[2019-04-14] MEDS ORDERED: MAGNESIUM CITRATE 300 ML BOTTLE PO PRN (22:29)
[2019-04-14] MEDS ORDERED: MAGNESIUM HYDROX 2400MG/30ML ORAL SUSPENSION 30 ML CUP PO PRN (22:29)
[2019-04-14] MEDS ORDERED: DICYCLOMINE HCL 10 MG CAPSULE PO PRN (22:29)
[2019-04-14] MEDS ORDERED: IBUPROFEN 400 MG TABLET (FP) PO PRN (22:29)
[2019-04-14] MEDS: chlordiazePOXIDE HCL 25 MG CAPSULE PO SCH (23:19)
[2019-04-15] MEDS: metFORMIN HCL 500 MG TABLET (FP) PO SCH ×2 (07:18→17:07)
[2019-04-15] MEDS: chlordiazePOXIDE HCL 25 MG CAPSULE PO SCH ×4 (07:18→22:06)
[2019-04-15] MEDS: PRENATAL VITAMINS W/ FOLIC ACID TABLET (FP) PO SCH (10:34)
[2019-04-15] MEDS: NICOTINE 14 MG/24 HOURS TOPICAL PATCH TD SCH (10:34)
--- NOTE | 2019-04-15 12:04 | CONSULT ---
[facility] Psychiatric Consult - Data Date of interview: 04/15/19 Admission source: [facility] Identifying data: This is one of multiple admissions to [facility] for this 39 y/ o AA male self-referred for detoxification (VICTORIA issues : alcohol, cocaine, heroin, nicotine). Interviewed at [address] [place] [address]. Patient is single, a father of one ( claimed two dependents at a previous interview), homeless, unemployed and supported on " panhandling " + welfare. Substance Abuse History: Discussed in this session. Details in current [facility] report as follows : Smoking history: Current every day smoker. Have you smoked in the past 12 months: Yes. Aproximately how many cigarettes per day: 5. Cigars Per Day: 0. Hx Chewing Tobacco Use: No. Initiated information on smoking cessation: Yes. 'Breaking Loose' booklet given: 04/14/19. - Substance & Tx. History. Hx Alcohol Use: Yes. Hx Substance Use: Yes. Substance Use Type : Alcohol, Cocaine (REPORTED), Heroin (REPORTED), Tranquilizers (REPORTED). Hx Substance Use Treatment: Yes ([facility]). - Substances abused. Alcohol. Substance route: Oral. Frequency: Daily. Amount used: 3 pints of vodka. Age of first use: 16. Date of last use: 04/14/19. Heroin. Other (specify): sniff. Frequency: Daily. Amount used: 3 bags. Age of first use: 28. Date of last use: 04/12/19. Crack. Substance route: Smoking. Frequency: Daily. Amount used: 10 to 15 bags. Age of first use: 23. Date of last use: 04/14/19. Benzodiazepine (Klonopin). Substance route: Oral. Frequency: Daily. Amount used: 2 tab of 2 mg. Age of first use: 31. Date of last use: 04/14/19 Medical History: Medical profile is remarkable for diabetes mellitus, antecedent of withdrawal-related seizures and a history of STD's (gonorrhea + syphilis). Psychiatric History: History of multiple psychiatric hospitalizations ([facility], [facility] and [facility]).Patient has been diagnosed with Schizophrenia (age 5) and ADHD (age 16). Mr Colorado reports recent treatment with haldol 5 mg/day + seroquel 100 mg/hs + depakote 500 mg/hs. No affiliation with any psychiatric OPD care providers at this time. Patient admits to one suicide attempt via self-mutilation (2008). Physical/Sexual Abuse/Trauma History: Patient denies. Additional Comment: Urine drug screen results: NINA-Cocaine. Noted. Mental Status Exam - Mental Status Exam Alert and Oriented to: Time, Place, Person Cognitive Function: Good Patient Appearance: Well Groomed Mood: Hopeful Affect: Mood Congruent Patient Behavior: Fatigued, Cooperative Speech Pattern: Clear Voice Loudness: Normal Thought Process: Goal Oriented Thought Disorder: Not Present Hallucinations: Denies Suicidal Ideation: Denies Homicidal Ideation: Denies Insight/Judgement: Poor Sleep: Poorly, Difficulty falling asleep Appetite: Good Muscle strength/Tone: Normal Gait/Station: Normal Psychiatric Findings - Problem List ([place] 1, 2,3) (1) Alcohol dependence with uncomplicated withdrawal Current Visit: Yes Status: Acute (2) Cocaine dependence Current Visit: Yes Status: Acute Qualifiers: Substance use status: uncomplicated Qualified Code(s): F14.20 - Cocaine dependence, uncomplicated (3) Benzodiazepine dependence Current Visit: Yes Status: Chronic (4) Nicotine dependence Current Visit: Yes Status: Chronic Qualifiers: Nicotine product type: cigarettes Substance use status: in withdrawal Qualified Code(s): F17.213 - Nicotine dependence, cigarettes, with withdrawal (5) Schizophrenia Current Visit: Yes Status: Chronic Qualifiers: Schizophrenia type: unspecified Qualified Code(s): F20.9 - Schizophrenia, unspecified (6) Insomnia Current Visit: Yes Status: Chronic (7) Non-compliance Current Visit: Yes Status: Chronic - Initial Treatment Plan Initial Treatment Plan: Psychoeducation. Sleep hygiene. Detoxification. Resumed : haldol 5 mg po daily + depakote 500 mg po hs + seroquel 100 mg po hs (patient' s request). Side effects/benefits of each medication are discussed with the patient. Mr Colorado gave verbal consent to MD. Barrett.
[2019-04-15 12:10] LABS: HEMOGLOBIN 11.4 GM/dL (11.7-16.9); MCHC 32.7 g/dl (32.0-35.9); MEAN CELL VOLUME 85.4 fl (80-96); MEAN PLT VOLUME 7.8 fl (7.5-11.1); PLATELET COUNT 253 K/MM3 (134-434); RBC 4.09 M/mm3 (4.00-5.60); RDW 16.5 % (11.9-15.9); WHITE BLOOD COUNT 5.6 K/mm3 (4.0-10.0)
[2019-04-15 12:27] LABS: ALBUMIN 3.2 g/dl (3.4-5.0); BILIRUBIN,TOTAL 0.2 mg/dL (0.2-1); BLOOD UREA NITROGEN 7.3 mg/dL (7-18); CALCIUM 8.3 mg/dL (8.5-10.1); CREATININE 0.8 mg/dL (0.55-1.3); POTASSIUM 3.9 mmol/L (3.5-5.1); TOT PROT 6.2 g/dl (6.4-8.2)
[2019-04-15 15:29] LABS: EPI CELLS 0.3 /HPF (0-5/HPF); HYALINE CASTS 2 /lpf (0-8); PH,URINE 7.5 (5.0-8.0); URINE APPEARANCE CLEAR; URINE BACTERIA 19.9 /hpf (NEGATIVE); URINE BILIRUBIN NEGATIVE (NEGATIVE); URINE COLOR YELLOW; URINE GLUCOSE (UA) NEGATIVE (NEGATIVE); URINE KETONE NEGATIVE (NEGATIVE); URINE LEUK ESTERASE 2+ (NEGATIVE); URINE NITRITE NEGATIVE (NEGATIVE); URINE PROTEIN NEGATIVE (NEGATIVE); URINE RBC 1 /hpf (0-4); URINE UROBILINOGEN 0.2 mg/dL (0.2-1.0); URINE WBC 24 /hpf (0-5)
--- NOTE | 2019-04-15 16:03 | PN ---
S CIWA - CIWA Score Nausea/Vomitin-No Nausea/No Vomiting Muscle Tremors: 2 Anxiety: 4-Mod. Anxious/Guarded Agitation: 2 Paroxysmal Sweats: No Perspiration Orientation: 0-Oriented Tacttile Disturbances: 0-None Auditory Disturbances: 0-None Visual Disturbances: 2-Mild Sensitivity Headache: 0-None Present CIWA-Ar Total Score: 10 BHS Progress Note (SOAP) Subjective: Fatigue, Anxious, Tremors, Interrupted Sleep. Objective: PATIENT A & O X 3, OBSERVED AMBULATING ON DETOX UNIT UNASSISTED. IN NO ACUTE DISTRESS. 04/15/19 16:00 Vital Signs Temperature 98.2 F 04/15/19 13:17 Pulse Rate 70 04/15/19 13:17 Respiratory Rate 18 04/15/19 13:17 Blood Pressure 118/76 04/15/19 13:17 O2 Sat by Pulse Oximetry (%) Laboratory Tests 04/14/19 04/15/19 04/15/19 22:26 08:20 08:20 WBC 5.6 RBC 4.09 Hgb 11.4 L Hct 35.0 L MCV 85.4 MCH 28.0 MCHC 32.7 RDW 16.5 H Plt Count 253 MPV 7.8 Sodium 142 Potassium 3.9 Chloride 109 H Carbon Dioxide 32 Anion Gap 2 L BUN 7.3 Creatinine 0.8 Est GFR (CKD-EPI)AfAm 128.60 Est GFR (CKD-EPI)NonAf 110.96 POC Glucometer 139 Random Glucose 140 H Calcium 8.3 L Total Bilirubin 0.2 AST 8 L ALT 12 L Alkaline Phosphatase 61 Total Protein 6.2 L Albumin 3.2 L Urine Color Urine Appearance Urine pH Ur Specific Range Urine Protein Urine Glucose (UA) Urine Ketones Urine Blood Urine Nitrite Urine Bilirubin Urine Urobilinogen Ur Leukocyte Esterase Urine WBC (Auto) Urine RBC (Auto) Urine Casts (Auto) U Epithel Cells (Auto) Urine Bacteria (Auto) 04/15/19 10:00 WBC RBC Hgb Hct MCV MCH MCHC RDW Plt Count MPV Sodium Potassium Chloride Carbon Dioxide Anion Gap BUN Creatinine Est GFR (CKD-EPI)AfAm Est GFR (CKD-EPI)NonAf POC Glucometer Random Glucose Calcium Total Bilirubin AST ALT Alkaline Phosphatase Total Protein Albumin Urine Color Yellow Urine Appearance Clear Urine pH 7.5 D Ur Specific Range 1.013 Urine Protein Negative Urine Glucose (UA) Negative Urine Ketones Negative Urine Blood Negative Urine Nitrite Negative Urine Bilirubin Negative Urine Urobilinogen 0.2 Ur Leukocyte Esterase 2+ H Urine WBC (Auto) 24 Urine RBC (Auto) 1 Urine Casts (Auto) 2 U Epithel Cells (Auto) 0.3 Urine Bacteria (Auto) 19.9 LABS NOTED. RESULT OF DETOX ADMISSION RPR PENDING. 04/15/19 16:02 Assessment: 04/15/19 16:02 WITHDRAWAL SYMPTOMS. ANEMIA. 04/15/19 16:02 Plan: CONTINUE DETOX. INCREASE DAILY PO WATER INTAKE. PATIENT IS CURRENTLY RECEIVING DAILY MVI CONTAINING B VITAMINS AND IRON WHILE ADMITTED FOR DETOX.
[2019-04-15] MEDS ORDERED: DIVALPROEX SODIUM 500 MG TABLET E.C. PO SCH (22:00)
[2019-04-15] MEDS ORDERED: THIAMINE HCL 100 MG TABLET (FP) PO SCH (22:00)
[2019-04-15] MEDS ORDERED: QUEtiapine FUMARATE 100 MG TABLET (FP) PO SCH (22:00)
[2019-04-16] MEDS: metFORMIN HCL 500 MG TABLET (FP) PO SCH (08:23)
[2019-04-16] MEDS: chlordiazePOXIDE HCL 25 MG CAPSULE PO SCH ×2 (08:23→10:53)
[2019-04-16 09:21] VITALS: BP 118/73; PULSE 71; TEMP 97.2
[2019-04-16] MEDS ORDERED: HALOPERIDOL 5 MG TABLET (FP) PO SCH (10:00)
[2019-04-16] MEDS: NICOTINE 14 MG/24 HOURS TOPICAL PATCH TD SCH (10:53)
[2019-04-16] MEDS: PRENATAL VITAMINS W/ FOLIC ACID TABLET (FP) PO SCH (10:53)
--- NOTE | 2019-04-16 11:50 | PN ---
[facility] CIWA - CIWA Score Nausea/Vomitin-Mild Nausea/No Vomiting Muscle Tremors: 1-None Visible, but [place] Anxiety: 2 Agitation: 2 Paroxysmal Sweats: 1-Minimal Palms Moist Orientation: 0-Oriented Tacttile Disturbances: 1-Very Mild Itch/Numbness Auditory Disturbances: 1-Very Mild Visual Disturbances: 0-None Headache: 0-None Present CIWA-Ar Total Score: 9 S Progress Note (SOAP) Subjective: doing well with librium detox regimen ate breakfast resting on bed comfortably less tremor mild sweating sleep better at night Objective: 04/16/19 11:49 Vital Signs Temperature 97.2 F L 04/16/19 09:21 Pulse Rate 71 04/16/19 09:21 Respiratory Rate 18 04/16/19 09:21 Blood Pressure 118/73 04/16/19 09:21 O2 Sat by Pulse Oximetry (%) Laboratory Last Values WBC 5.6 K/mm3 (4.0-10.0) 04/15/19 08:20 RBC 4.09 M/mm3 (4.00-5.60) 04/15/19 08:20 Hgb 11.4 GM/dL (11.7-16.9) L 04/15/19 08:20 Hct 35.0 % (35.4-49) L 04/15/19 08:20 MCV 85.4 fl (80-96) 04/15/19 08:20 MCH 28.0 pg (25.7-33.7) 04/15/19 08:20 MCHC 32.7 g/dl (32.0-35.9) 04/15/19 08:20 RDW 16.5 % (11.9-15.9) H 04/15/19 08:20 Plt Count 253 K/MM3 (134-434) 04/15/19 08:20 MPV 7.8 fl (7.5-11.1) 04/15/19 08:20 Sodium 142 mmol/L (136-145) 04/15/19 08:20 Potassium 3.9 mmol/L (3.5-5.1) 04/15/19 08:20 Chloride 109 mmol/L (98-107) H 04/15/19 08:20 Carbon Dioxide 32 mmol/L (21-32) 04/15/19 08:20 Anion Gap 2 MMOL/L (8-16) L 04/15/19 08:20 BUN 7.3 mg/dL (7-18) 04/15/19 08:20 Creatinine 0.8 mg/dL (0.55-1.3) 04/15/19 08:20 Est GFR (CKD-EPI)AfAm 128.60 04/15/19 08:20 Est GFR (CKD-EPI)NonAf 110.96 04/15/19 08:20 POC Glucometer 131 UNITS (80-120) 04/15/19 16:21 Random Glucose 140 mg/dL (74-106) H 04/15/19 08:20 Calcium 8.3 mg/dL (8.5-10.1) L 04/15/19 08:20 Total Bilirubin 0.2 mg/dL (0.2-1) 04/15/19 08:20 AST 8 U/L (15-37) L 04/15/19 08:20 ALT 12 U/L (13-61) L 04/15/19 08:20 Alkaline Phosphatase 61 U/L (45-117) 04/15/19 08:20 Total Protein 6.2 g/dl (6.4-8.2) L 04/15/19 08:20 Albumin 3.2 g/dl (3.4-5.0) L 04/15/19 08:20 Urine Color Yellow 04/15/19 10:00 Urine Appearance Clear 04/15/19 10:00 Urine pH 7.5 (5.0-8.0) D 04/15/19 10:00 Ur Specific [place] 1.013 (1.010-1.035) 04/15/19 10:00 Urine Protein Negative (NEGATIVE) 04/15/19 10:00 Urine Glucose (UA) Negative (NEGATIVE) 04/15/19 10:00 Urine Ketones Negative (NEGATIVE) 04/15/19 10:00 Urine Blood Negative (NEGATIVE) 04/15/19 10:00 Urine Nitrite Negative (NEGATIVE) 04/15/19 10:00 Urine Bilirubin Negative (NEGATIVE) 04/15/19 10:00 Urine Urobilinogen 0.2 mg/dL (0.2-1.0) 04/15/19 10:00 Ur Leukocyte Esterase 2+ (NEGATIVE) H 04/15/19 10:00 Urine WBC (Auto) 24 /hpf (0-5) 04/15/19 10:00 Urine RBC (Auto) 1 /hpf (0-4) 04/15/19 10:00 Urine Casts (Auto) 2 /lpf (0-8) 04/15/19 10:00 U Epithel Cells (Auto) 0.3 /HPF (0-5/HPF) 04/15/19 10:00 Urine Bacteria (Auto) 19.9 /hpf (NEGATIVE) 04/15/19 10:00 lab noted Assessment: 04/16/19 11:50 alcohol and benzo withdrawal sx Plan: continue librium detox regimen
--- NOTE | 2019-04-16 13:21 | PN ---
[facility] Progress Note Note: Patient is discharged today. Scripts for 30 days supply of medications(Haldol 5 mg/day, Depakote 500 mg/day, Seroquel 100 mg/hs) are electronically transmitted to [facility] at [address] [place] [address]
--- NOTE | 2019-04-16 15:10 | DS ---
[facility] Detox Discharge Summary Admission Date: 04/14/19 Discharge Date: 04/16/19 - History Present History: Alcohol Dependence, Sedative Dependence Additional Comments: did well with librium detox regimen no complication through out the detox stay patient is alert oriented x 3 steady gait after lunch and nap patient stated that he has 3 oclock appointment with the doctor today feeling better prefers to leave detox today cardiac S1S2 RRR respiratory clear bilaterally lung on auscultatin extremities full range of motion - Physical Exam Results Vital Signs: Vital Signs Temperature 97.2 F L 04/16/19 09:21 Pulse Rate 71 04/16/19 09:21 Respiratory Rate 18 04/16/19 09:21 Blood Pressure 118/73 04/16/19 09:21 O2 Sat by Pulse Oximetry (%) Pertinent Admission Physical Exam Findings: alcohol and benzo withdrawal sx Laboratory Last Values WBC 5.6 K/mm3 (4.0-10.0) 04/15/19 08:20 RBC 4.09 M/mm3 (4.00-5.60) 04/15/19 08:20 Hgb 11.4 GM/dL (11.7-16.9) L 04/15/19 08:20 Hct 35.0 % (35.4-49) L 04/15/19 08:20 MCV 85.4 fl (80-96) 04/15/19 08:20 MCH 28.0 pg (25.7-33.7) 04/15/19 08:20 MCHC 32.7 g/dl (32.0-35.9) 04/15/19 08:20 RDW 16.5 % (11.9-15.9) H 04/15/19 08:20 Plt Count 253 K/MM3 (134-434) 04/15/19 08:20 MPV 7.8 fl (7.5-11.1) 04/15/19 08:20 Sodium 142 mmol/L (136-145) 04/15/19 08:20 Potassium 3.9 mmol/L (3.5-5.1) 04/15/19 08:20 Chloride 109 mmol/L (98-107) H 04/15/19 08:20 Carbon Dioxide 32 mmol/L (21-32) 04/15/19 08:20 Anion Gap 2 MMOL/L (8-16) L 04/15/19 08:20 BUN 7.3 mg/dL (7-18) 04/15/19 08:20 Creatinine 0.8 mg/dL (0.55-1.3) 04/15/19 08:20 Est GFR (CKD-EPI)AfAm 128.60 04/15/19 08:20 Est GFR (CKD-EPI)NonAf 110.96 04/15/19 08:20 POC Glucometer 131 UNITS (80-120) 04/15/19 16:21 Random Glucose 140 mg/dL (74-106) H 04/15/19 08:20 Calcium 8.3 mg/dL (8.5-10.1) L 04/15/19 08:20 Total Bilirubin 0.2 mg/dL (0.2-1) 04/15/19 08:20 AST 8 U/L (15-37) L 04/15/19 08:20 ALT 12 U/L (13-61) L 04/15/19 08:20 Alkaline Phosphatase 61 U/L (45-117) 04/15/19 08:20 Total Protein 6.2 g/dl (6.4-8.2) L 04/15/19 08:20 Albumin 3.2 g/dl (3.4-5.0) L 04/15/19 08:20 Urine Color Yellow 04/15/19 10:00 Urine Appearance Clear 04/15/19 10:00 Urine pH 7.5 (5.0-8.0) D 04/15/19 10:00 Ur Specific [place] 1.013 (1.010-1.035) 04/15/19 10:00 Urine Protein Negative (NEGATIVE) 04/15/19 10:00 Urine Glucose (UA) Negative (NEGATIVE) 04/15/19 10:00 Urine Ketones Negative (NEGATIVE) 04/15/19 10:00 Urine Blood Negative (NEGATIVE) 04/15/19 10:00 Urine Nitrite Negative (NEGATIVE) 04/15/19 10:00 Urine Bilirubin Negative (NEGATIVE) 04/15/19 10:00 Urine Urobilinogen 0.2 mg/dL (0.2-1.0) 04/15/19 10:00 Ur Leukocyte Esterase 2+ (NEGATIVE) H 04/15/19 10:00 Urine WBC (Auto) 24 /hpf (0-5) 04/15/19 10:00 Urine RBC (Auto) 1 /hpf (0-4) 04/15/19 10:00 Urine Casts (Auto) 2 /lpf (0-8) 04/15/19 10:00 U Epithel Cells (Auto) 0.3 /HPF (0-5/HPF) 04/15/19 10:00 Urine Bacteria (Auto) 19.9 /hpf (NEGATIVE) 04/15/19 10:00 RPR Titer Nonreactive (NONREACTIVE) 04/15/19 08:20 lab noted - Treatment Hospital Course: Detox Protocol Followed, Detoxed Safely, Responded well, Discharged Condition Good, Rehab Referral Accepted Patient has Accepted a Rehab Referral to: [facility] - Medication Discharge Medications: Ambulatory Orders Haloperidol [Haldol -] 5 mg PO DAILY 04/14/19 Divalproex [Depakote -] 500 mg PO DAILY #30 tablet.ec 04/16/19 Haloperidol [Haldol -] 5 mg PO DAILY #30 tablet 04/16/19 Metformin HCl [Glucophage] 500 mg PO BID #60 tablet 04/16/19 Quetiapine Fumarate [Seroquel -] 100 mg PO HS #30 tablet 04/16/19 Sulfamethoxazole/Trimethoprim [Bactrim Ds -] 1 tab PO BID #14 tablet 04/16/19 - Diagnosis (1) Alcohol dependence with uncomplicated withdrawal Status: Acute (2) Sedative, hypnotic, or anxiolytic withdrawal Status: Acute (3) Diabetes mellitus type II, controlled Status: Chronic Qualifiers: Diabetes mellitus [facility] insulin use: without [facility] use Diabetes mellitus complication status: without complication Qualified Code(s): E11.9 - Type 2 diabetes mellitus without complications (4) Nicotine dependence Status: Acute Qualifiers: Nicotine product type: cigarettes Substance use status: in withdrawal Qualified Code(s): F17.213 - Nicotine dependence, cigarettes, with withdrawal (5) Schizophrenia Status: Suspected Qualifiers: Schizophrenia type: unspecified Qualified Code(s): F20.9 - Schizophrenia, unspecified - AMA Did Patient Leave Against Medical Advice: No CIWA Score - CIWA Score Nausea/Vomitin-No Nausea/No Vomiting Muscle Tremors: 1-None Visible, but [place] Anxiety: 1-Mildly Anxious Agitation: 1-Slight > Activity Paroxysmal Sweats: 1-Minimal Palms Moist Orientation: 0-Oriented Tacttile Disturbances: 1-Very Mild Itch/Numbness Auditory Disturbances: 1-Very Mild Visual Disturbances: 0-None Headache: 0-None Present CIWA-Ar Total Score: 6
[2019-04-17] MEDS ORDERED: chlordiazePOXIDE HCL 10 MG CAPSULE PO PRN
[2019-04-17] MEDS ORDERED: chlordiazePOXIDE HCL 10 MG CAPSULE PO SCH (05:00)
[2019-04-18] MEDS ORDERED: chlordiazePOXIDE HCL 10 MG CAPSULE PO SCH (05:00)
[2019-04-19] MEDS ORDERED: chlordiazePOXIDE HCL 10 MG CAPSULE PO ONE (05:00)
== END 2019-04-16 12:29 | disposition home or self-care (01) | DRG 773 ==
LOC: YASAS 16:22 → Y6N 22:53 → Y3N 22:58
PROVIDERS: ADMIT Allergy & Immunology; ATTEND Allergy & Immunology
PROC: HZ2ZZZZ Detoxification Services for Substance Abuse Treatment (ICD-10-PCS; principal; 2019-04-14)
DX: F10.230 Alcohol dependence with withdrawal, uncomplicated (principal); F13.230 Sedative, hypnotic or anxiolytic dependence with withdrawal, uncomplicated; F11.20 Opioid dependence, uncomplicated; F14.20 Cocaine dependence, uncomplicated; F17.213 Nicotine dependence, cigarettes, with withdrawal; F20.9 Schizophrenia, unspecified; F32.9 Major depressive disorder, single episode, unspecified; G47.00 Insomnia, unspecified; L85.3 Xerosis cutis; E11.9 Type 2 diabetes mellitus without complications; Z79.84 Long term (current) use of oral hypoglycemic drugs; Z91.89 Other specified personal risk factors, not elsewhere classified; Z91.018 Allergy to other foods; Z91.19 Patient's noncompliance with other medical treatment and regimen
CPT/HCPCS: 36415; 80053; 81003; 82962; 85027; 86593

== ENCOUNTER 2019-05-07 14:34 | Inpatient (IN) | payer OTHER ==
[2019-05-07 18:00] VITALS: BMI 27.9
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
[2019-05-07] MEDS ORDERED: MAGNESIUM CITRATE 300 ML BOTTLE PO PRN (19:14)
[2019-05-07] MEDS ORDERED: IBUPROFEN 400 MG TABLET (FP) PO PRN (19:14)
[2019-05-07] MEDS ORDERED: hydrOXYzine PAMOATE 25 MG CAPSULE (FP) PO PRN (19:14)
[2019-05-07] MEDS ORDERED: METHOCARBAMOL 500 MG TABLET PO PRN (19:14)
[2019-05-07] MEDS ORDERED: MENTHOL/PHENOL 1 EACH UD MM PRN (19:14)
[2019-05-07] MEDS ORDERED: MAG HYDROX/AL HYDROX/SIMETH 30 ML UNIT-DOSE CUP PO PRN (19:14)
[2019-05-07] MEDS ORDERED: BISMUTH SUBSALICYLATE 524 MG/30 ML UD PO PRN (19:14)
[2019-05-07] MEDS ORDERED: chlordiazePOXIDE HCL 25 MG CAPSULE PO PRN (19:14)
[2019-05-07] MEDS ORDERED: MAGNESIUM HYDROX 2400MG/30ML ORAL SUSPENSION 30 ML CUP PO PRN (19:14)
[2019-05-07] MEDS ORDERED: ACETAMINOPHEN 325 MG TABLET (FP) PO PRN ×2 (19:14)
[2019-05-07] MEDS ORDERED: NICOTINE POLACRILEX 4 MG GUM BUC PRN (19:14)
[2019-05-07] MEDS ORDERED: MELATONIN 5 MG TABLETS PO PRN (19:14)
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
[2019-05-07] MEDS: THIAMINE HCL 100 MG TABLET (FP) PO SCH (22:31)
[2019-05-07] MEDS: chlordiazePOXIDE HCL 25 MG CAPSULE PO SCH (22:31)
[2019-05-08] MEDS: chlordiazePOXIDE HCL 25 MG CAPSULE PO SCH ×4 (06:23→22:20)
[2019-05-08] MEDS: metFORMIN HCL 500 MG TABLET (FP) PO SCH ×2 (08:12→17:19)
[2019-05-08] MEDS: PRENATAL VITAMINS W/ FOLIC ACID TABLET (FP) PO SCH (10:00)
--- NOTE | 2019-05-08 11:49 | CONSULT ---
[facility] Psychiatric Consult - Data Date of interview: 05/08/19 Admission source: [facility] Identifying data: Redmission to [facility] for this 39 y/o AA male self-referred for detoxification (VICTORIA issues : benzodiazepine, alcohol, cocaine, heroin, nicotine). Interviewed at [address] [place] [address]. Patient is single, a father of one (claimed two dependents at previous interviews), homeless, unemployed and reportedly supported on " panhandling " + welfare. Substance Abuse History: Discussed with the patient. Details in current [facility] report as follows : Smoking history: Current every day smoker. Have you smoked in the past 12 months: Yes. Aproximately how many cigarettes per day: 10. Cigars Per Day: 0. Hx Chewing Tobacco Use: No. Initiated information on smoking cessation: Yes. 'Breaking Loose' booklet given: 05/07/19. - Substance & Tx. History. Hx Alcohol Use: Yes. Hx Substance Use: Yes. Substance Use Type : Alcohol, Cocaine, Heroin, Marijuana, Prescribed. - Substances abused. Alcohol. Substance route: Oral. Frequency: Daily. Amount used: 4 pints of vodka. Age of first use: 16. Date of last use: 05/07/19. Heroin. Other ( specify): sniff. Substance route: Inhalation. Frequency: Daily. Amount used: 3 bags. Age of first use: 28. Date of last use: 05/06/19. Crack. Substance route: Smoking. Frequency: Daily. Amount used: $200. Age of first use: 16. Date of last use: 05/06/19. Benzodiazepine (Klonopin). Substance route: Oral. Frequency: Daily. Amount used: 3 tab of 2 mg. Age of first use: 35. Date of last use: 05/07/19 Medical History: Medical profile is remarkable for diabetes mellitus, antecedent of withdrawal-related seizures and a history of STD's (gonorrhea + syphilis). Psychiatric History: Patient presents with a history of multiple psychiatric hospitalizations ([facility], [facility] and [facility]). Diagnosed with Schizophrenia (age 5) and ADHD (age 16). Mr Colorado admits to using [facility] settings for refills of medications consisting of haldol 5 mg/day + seroquel 100 mg/hs + depakote 500 mg/hs. No affiliation with any psychiatric OPD care providers. Patient admits to one suicide attempt via self-mutilation (2008). Physical/Sexual Abuse/Trauma History: Patient denies history of abuse. Additional Comment: Urine drug screen results: THC-Marijuana, NINA-Cocaine, BZO- Benzodiazepines. Noted. Mental Status Exam - Mental Status Exam Alert and Oriented to: Time, Place, Person Cognitive Function: Grossly Intact Patient Appearance: Disheveled Mood: Nervous, Withdrawn Affect: Mood Congruent, Constricted Patient Behavior: Fatigued, Cooperative Speech Pattern: Clear, Appropriate Voice Loudness: Normal Thought Process: Goal Oriented Thought Disorder: Not Present Hallucinations: Denies Suicidal Ideation: Denies Homicidal Ideation: Denies Insight/Judgement: Poor Sleep: Poorly, Difficulty falling asleep Appetite: Good Muscle strength/Tone: Normal Gait/Station: Normal Psychiatric Findings - Problem List ([place] 1, 2,3) (1) Alcohol dependence with uncomplicated withdrawal Current Visit: Yes Status: Acute (2) Nicotine dependence Current Visit: Yes Status: Chronic (3) Cocaine dependence Current Visit: Yes Status: Chronic Qualifiers: Substance use status: uncomplicated Qualified Code(s): F14.20 - Cocaine dependence, uncomplicated (4) Benzodiazepine dependence Current Visit: Yes Status: Chronic (5) Schizophrenia Current Visit: Yes Status: Chronic Qualifiers: Schizophrenia type: unspecified Qualified Code(s): F20.9 - Schizophrenia, unspecified (6) Substance induced mood disorder Current Visit: Yes Status: Chronic (7) Insomnia Current Visit: Yes Status: Chronic (8) Non-compliance Current Visit: Yes Status: Chronic - Initial Treatment Plan Initial Treatment Plan: Records ([facility]) revisited. Sleep hygiene. Psychoeducation. MAT services discussed in session. Detoxification. AA/NA meetings. Medications resumed as : haldol 5 mg po daily + cogentin 0.5 mg po daily + depakote 500 mg po bid + seroquel 50 mg po hs (reduced). Side effects/ benefits of each drug are discussed with the patient. The discussion included risk for abnormal involuntary movements, dyskinesias, dystonias, akathisia, neuroleptic malignant syndrome, liver dysfunction, blood dyscrasias, anticholinergic manifestations (dry mouth, blurred vision, urinary retention, constipation), metabolic syndrome and oversedation. Mr [place] insists for the inclusion of these drugs to the current regimen. Gave his verbal consent. Valproic acid level requested. Observation.
--- NOTE | 2019-05-08 15:22 | PN ---
S CIWA - CIWA Score Nausea/Vomitin-Mild Nausea/No Vomiting Muscle Tremors: 1-None Visible, but [place] Anxiety: 2 Agitation: 2 Paroxysmal Sweats: No Perspiration Orientation: 0-Oriented Tacttile Disturbances: 1-Very Mild Itch/Numbness Auditory Disturbances: 0-None Visual Disturbances: 0-None Headache: 1-Very Mild CIWA-Ar Total Score: 8 BHS Progress Note (SOAP) Subjective: alert,irritable,anxious,interrupted sleep,tremor Objective: 05/08/19 15:20 Vital Signs Temperature 98.1 F 05/08/19 13:22 Pulse Rate 69 05/08/19 13:22 Respiratory Rate 18 05/08/19 13:22 Blood Pressure 129/80 05/08/19 13:22 O2 Sat by Pulse Oximetry (%) Laboratory Last Values POC Glucometer 123 UNITS (80-120) 05/08/19 06:11 labs pending Assessment: 05/08/19 15:21 withdrawal symptom Plan: continue detox librium regimen
[2019-05-08] MEDS: BENZTROPINE MESYLATE 1 MG TABLET (FP) PO SCH (15:38)
[2019-05-08] MEDS: HALOPERIDOL 5 MG TABLET (FP) PO SCH (15:38)
[2019-05-08] MEDS ORDERED: QUEtiapine FUMARATE 50 MG TABLET PO SCH (22:00)
[2019-05-08] MEDS: THIAMINE HCL 100 MG TABLET (FP) PO SCH (22:19)
[2019-05-08] MEDS: DIVALPROEX SODIUM 500 MG TABLET E.C. PO SCH (22:20)
[2019-05-09] MEDS: chlordiazePOXIDE HCL 25 MG CAPSULE PO SCH ×2 (06:48→10:27)
[2019-05-09] MEDS: metFORMIN HCL 500 MG TABLET (FP) PO SCH (08:00)
[2019-05-09 09:40] VITALS: BP 133/80; PULSE 77; TEMP 97.7
[2019-05-09] MEDS: PRENATAL VITAMINS W/ FOLIC ACID TABLET (FP) PO SCH (10:27)
[2019-05-09] MEDS: DIVALPROEX SODIUM 500 MG TABLET E.C. PO SCH (10:27)
[2019-05-09] MEDS: HALOPERIDOL 5 MG TABLET (FP) PO SCH (10:27)
[2019-05-09] MEDS: BENZTROPINE MESYLATE 1 MG TABLET (FP) PO SCH (10:28)
--- NOTE | 2019-05-09 14:19 | DS ---
[facility] Detox Discharge Summary Admission Date: 05/07/19 Discharge Date: 05/09/19 (Left AMA) - History Additional Comments: Pt left AMA, pt did not complete the detox protocol. pt states, "i have to go and take care of something". An attempt to let pt stay and complete the detox protocol failed. Pt is instructed to follow-up with [facility] outpatient program and also to follow-up with his pmd but was adamant. Pt is alert and oriented x3 and in no respiratory distress. Pertinent Past History: H/O DM, alcohol, heroin, cocaine, and benzo use disorder. - Physical Exam Results Vital Signs: Vital Signs Temperature 97.7 F 05/09/19 09:39 Pulse Rate 77 05/09/19 09:39 Respiratory Rate 18 05/09/19 09:39 Blood Pressure 133/80 05/09/19 09:39 O2 Sat by Pulse Oximetry (%) Vital Signs 05/09/19 09:39 Temperature 97.7 F Pulse Rate 77 Respiratory 18 Rate Blood Pressure 133/80 Laboratory Last Values POC Glucometer 126 UNITS (80-120) 05/08/19 16:42 Laboratory Last Values POC Glucometer 126 UNITS (80-120) 05/08/19 16:42 Pertinent Admission Physical Exam Findings: withdrawal symptoms. - Treatment Hospital Course: Detox Protocol Followed - Medication Discharge Medications: Ambulatory Orders Haloperidol [Haldol -] 5 mg PO DAILY 04/14/19 Divalproex [Depakote -] 500 mg PO DAILY #30 tablet.ec 04/16/19 Haloperidol [Haldol -] 5 mg PO DAILY #30 tablet 04/16/19 Metformin HCl [Glucophage] 500 mg PO BID #60 tablet 04/16/19 Quetiapine Fumarate [Seroquel -] 100 mg PO HS #30 tablet 04/16/19 Sulfamethoxazole/Trimethoprim [Bactrim Ds -] 1 tab PO BID #14 tablet 04/16/19 - Diagnosis (1) Nicotine dependence Status: Acute Qualifiers: Nicotine product type: cigarettes Substance use status: in withdrawal Qualified Code(s): F17.213 - Nicotine dependence, cigarettes, with withdrawal (2) Benzodiazepine dependence Status: Chronic (3) Cocaine dependence Status: Chronic Qualifiers: Substance use status: uncomplicated Qualified Code(s): F14.20 - Cocaine dependence, uncomplicated (4) Diabetes mellitus type II, controlled Status: Chronic Qualifiers: Diabetes mellitus correction insulin use: without correction use Diabetes mellitus complication status: without complication Qualified Code(s): E11.9 - Type 2 diabetes mellitus without complications - AMA Did Patient Leave Against Medical Advice: Yes [facility] CIWA - CIWA Score Nausea/Vomitin-No Nausea/No Vomiting Muscle Tremors: None Anxiety: 2 Agitation: 0-Normal Activity Paroxysmal Sweats: 1-Minimal Palms Moist Orientation: 0-Oriented Tacttile Disturbances: 0-None Auditory Disturbances: 0-None Visual Disturbances: 0-None Headache: 0-None Present CIWA-Ar Total Score: 3
[2019-05-10] MEDS ORDERED: chlordiazePOXIDE HCL 10 MG CAPSULE PO PRN
[2019-05-10] MEDS ORDERED: chlordiazePOXIDE HCL 10 MG CAPSULE PO SCH (05:00)
[2019-05-11] MEDS ORDERED: chlordiazePOXIDE HCL 10 MG CAPSULE PO SCH (05:00)
[2019-05-12] MEDS ORDERED: chlordiazePOXIDE HCL 10 MG CAPSULE PO ONE (05:00)
== END 2019-05-09 11:34 | disposition left against medical advice (07) | DRG 770 ==
LOC: YASAS 14:34 → Y3N 19:49
PROVIDERS: ADMIT Allergy & Immunology; ATTEND Allergy & Immunology
PROC: HZ2ZZZZ Detoxification Services for Substance Abuse Treatment (ICD-10-PCS; principal; 2019-05-07)
DX: F10.230 Alcohol dependence with withdrawal, uncomplicated (principal); F11.20 Opioid dependence, uncomplicated; F13.20 Sedative, hypnotic or anxiolytic dependence, uncomplicated; F14.20 Cocaine dependence, uncomplicated; F17.210 Nicotine dependence, cigarettes, uncomplicated; F20.9 Schizophrenia, unspecified; F31.9 Bipolar disorder, unspecified; F19.24 Other psychoactive substance dependence with psychoactive substance-induced mood disorder; E11.9 Type 2 diabetes mellitus without complications; Z79.84 Long term (current) use of oral hypoglycemic drugs; G47.00 Insomnia, unspecified; Z86.19 Personal history of other infectious and parasitic diseases; Z86.69 Personal history of other diseases of the nervous system and sense organs; Z91.018 Allergy to other foods; Z91.19 Patient's noncompliance with other medical treatment and regimen
CPT/HCPCS: 82962

== ENCOUNTER 2019-06-04 10:30 | Inpatient (IN) | payer OTHER ==
[2019-06-04 11:04] VITALS: BMI 27.9
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
[2019-06-04] MEDS ORDERED: MAGNESIUM HYDROX 2400MG/30ML ORAL SUSPENSION 30 ML CUP PO PRN (13:14)
[2019-06-04] MEDS ORDERED: MAGNESIUM CITRATE 300 ML BOTTLE PO PRN (13:14)
[2019-06-04] MEDS ORDERED: METHOCARBAMOL 500 MG TABLET PO PRN (13:14)
[2019-06-04] MEDS ORDERED: MAG HYDROX/AL HYDROX/SIMETH 30 ML UNIT-DOSE CUP PO PRN (13:14)
[2019-06-04] MEDS ORDERED: BISMUTH SUBSALICYLATE 524 MG/30 ML UD PO PRN (13:14)
[2019-06-04] MEDS ORDERED: hydrOXYzine PAMOATE 25 MG CAPSULE (FP) PO PRN (13:14)
[2019-06-04] MEDS ORDERED: IBUPROFEN 400 MG TABLET (FP) PO PRN (13:14)
[2019-06-04] MEDS ORDERED: ACETAMINOPHEN 325 MG TABLET (FP) PO PRN ×2 (13:14)
[2019-06-04] MEDS ORDERED: MELATONIN 5 MG TABLETS PO PRN (13:14)
[2019-06-04] MEDS ORDERED: MENTHOL/PHENOL 1 EACH UD MM PRN (13:14)
[2019-06-04] MEDS ORDERED: diazePAM 5 MG TABLET PO PRN (13:15)
[2019-06-04] MEDS: diazePAM 5 MG TABLET PO SCH ×2 (13:48→22:31)
[2019-06-04 17:33] LABS: HEMATOCRIT 35.4 % (35.4-49); HEMOGLOBIN 11.4 GM/dL (11.7-16.9); MCH 27.6 pg (25.7-33.7); MCHC 32.1 g/dl (32.0-35.9); MEAN CELL VOLUME 85.8 fl (80-96); MEAN PLT VOLUME 8.4 fl (7.5-11.1); PLATELET COUNT 235 K/MM3 (134-434); RBC 4.13 M/mm3 (4.00-5.60); RDW 16.4 % (11.9-15.9); WHITE BLOOD COUNT 12.7 K/mm3 (4.0-10.0)
[2019-06-04 18:26] LABS: ALBUMIN 4.1 g/dl (3.4-5.0); BILIRUBIN,TOTAL 0.4 mg/dL (0.2-1); BLOOD UREA NITROGEN 13.3 mg/dL (7-18); CALCIUM 8.5 mg/dL (8.5-10.1); CREATININE 1.1 mg/dL (0.55-1.3); POTASSIUM 3.6 mmol/L (3.5-5.1); TOT PROT 7.6 g/dl (6.4-8.2)
[2019-06-04] MEDS: THIAMINE HCL 100 MG TABLET (FP) PO SCH (22:31)
[2019-06-05] MEDS: diazePAM 5 MG TABLET PO SCH ×3 (05:48→06:38)
[2019-06-05] MEDS ORDERED: PNEUMOC 13-VAL CONJ-DIP CRM/PF 0.5 ML DISP.SYRIN IM ONE (06:00)
--- NOTE | 2019-06-05 09:57 | PN ---
[facility] CIWA - CIWA Score Nausea/Vomitin-Mild Nausea/No Vomiting Muscle Tremors: 2 Anxiety: 2 Agitation: 2 Paroxysmal Sweats: No Perspiration Orientation: 0-Oriented Tacttile Disturbances: 1-Very Mild Itch/Numbness Auditory Disturbances: 0-None Visual Disturbances: 0-None Headache: 2-Mild CIWA-Ar Total Score: 10 S Progress Note (SOAP) Subjective: alert,irritable,anxious,interrupted sleep,pain in the body Objective: 06/05/19 09:54 Vital Signs Temperature 97.5 F L 06/05/19 09:38 Pulse Rate 67 06/05/19 09:38 Respiratory Rate 16 06/05/19 09:38 Blood Pressure 124/61 06/05/19 09:38 O2 Sat by Pulse Oximetry (%) 06/05/19 09:55 Laboratory Last Values WBC 12.7 K/mm3 (4.0-10.0) H 06/04/19 14:30 RBC 4.13 M/mm3 (4.00-5.60) 06/04/19 14:30 Hgb 11.4 GM/dL (11.7-16.9) L 06/04/19 14:30 Hct 35.4 % (35.4-49) 06/04/19 14:30 MCV 85.8 fl (80-96) 06/04/19 14:30 MCH 27.6 pg (25.7-33.7) 06/04/19 14:30 MCHC 32.1 g/dl (32.0-35.9) 06/04/19 14:30 RDW 16.4 % (11.9-15.9) H 06/04/19 14:30 Plt Count 235 K/MM3 (134-434) 06/04/19 14:30 MPV 8.4 fl (7.5-11.1) 06/04/19 14:30 Sodium 141 mmol/L (136-145) 06/04/19 14:30 Potassium 3.6 mmol/L (3.5-5.1) 06/04/19 14:30 Chloride 106 mmol/L (98-107) 06/04/19 14:30 Carbon Dioxide 29 mmol/L (21-32) 06/04/19 14:30 Anion Gap 6 MMOL/L (8-16) L 06/04/19 14:30 BUN 13.3 mg/dL (7-18) 06/04/19 14:30 Creatinine 1.1 mg/dL (0.55-1.3) 06/04/19 14:30 Est GFR (CKD-EPI)AfAm 96.13 06/04/19 14:30 Est GFR (CKD-EPI)NonAf 82.94 06/04/19 14:30 POC Glucometer 130 UNITS (80-120) 06/05/19 05:47 Random Glucose 112 mg/dL (74-106) H 06/04/19 14:30 Calcium 8.5 mg/dL (8.5-10.1) 06/04/19 14:30 Total Bilirubin 0.4 mg/dL (0.2-1) 06/04/19 14:30 AST 16 U/L (15-37) 06/04/19 14:30 ALT 23 U/L (13-61) 06/04/19 14:30 Alkaline Phosphatase 66 U/L (45-117) 06/04/19 14:30 Total Protein 7.6 g/dl (6.4-8.2) 06/04/19 14:30 Albumin 4.1 g/dl (3.4-5.0) 06/04/19 14:30 Assessment: 06/05/19 09:55 withdrawal symptom Plan: continue detox valium regimen,bgm monitoring,metformin 500 mgs po bid,encourage oral fluid,wbc 12,700/cumm probably due to dehydration, encourage fluid and water,repeat cbc in am
[2019-06-05] MEDS: PRENATAL VITAMINS W/ FOLIC ACID TABLET (FP) PO SCH (10:12)
[2019-06-05] MEDS: metFORMIN HCL 500 MG TABLET (FP) PO SCH ×2 (10:15→17:08)
[2019-06-05] MEDS: cloNIDine HCL 0.1 MG TABLET PO SCH ×2 (10:15→22:11)
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
[2019-06-05] MEDS: BENZTROPINE MESYLATE 1 MG TABLET (FP) PO SCH (10:57)
[2019-06-05] MEDS: HALOPERIDOL 5 MG TABLET (FP) PO SCH (10:57)
[2019-06-05] MEDS ORDERED: PNEUMOCOCCAL 23 VACCINE 0.5 ML VIAL IM ONE (12:00)
[2019-06-05] MEDS ORDERED: LORazepam 1 MG TABLET PO PRN (14:31)
--- NOTE | 2019-06-05 14:31 | PN ---
[facility] Progress Note Note: regimen changed to ativan by patient's request
[2019-06-05] MEDS: LORazepam 2 MG TABLET PO SCH ×2 (17:08→22:11)
[2019-06-05] MEDS ORDERED: QUEtiapine FUMARATE 100 MG TABLET (FP) PO SCH (22:00)
[2019-06-05] MEDS: THIAMINE HCL 100 MG TABLET (FP) PO SCH (22:11)
[2019-06-06] MEDS ORDERED: diazePAM 5 MG TABLET PO ONE (06:00)
[2019-06-06] MEDS: LORazepam 2 MG TABLET PO SCH ×2 (07:03→11:06)
[2019-06-06] MEDS: metFORMIN HCL 500 MG TABLET (FP) PO SCH (07:03)
[2019-06-06 09:34] VITALS: BP 136/90; PULSE 66; TEMP 98.6
[2019-06-06 10:32] LABS: HEMATOCRIT 37.4 % (35.4-49); MCH 27.7 pg (25.7-33.7); MCHC 32.2 g/dl (32.0-35.9); MEAN CELL VOLUME 86.2 fl (80-96); MEAN PLT VOLUME 8.5 fl (7.5-11.1); PLATELET COUNT 229 K/MM3 (134-434); RBC 4.34 M/mm3 (4.00-5.60); RDW 16.4 % (11.9-15.9); WHITE BLOOD COUNT 6.3 K/mm3 (4.0-10.0)
[2019-06-06] MEDS: HALOPERIDOL 5 MG TABLET (FP) PO SCH (11:05)
[2019-06-06] MEDS: cloNIDine HCL 0.1 MG TABLET PO SCH (11:05)
[2019-06-06] MEDS: PRENATAL VITAMINS W/ FOLIC ACID TABLET (FP) PO SCH (11:05)
[2019-06-06] MEDS: BENZTROPINE MESYLATE 1 MG TABLET (FP) PO SCH (11:05)
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
[2019-06-07] MEDS ORDERED: LORazepam 1 MG TABLET PO SCH (05:00)
[2019-06-08] MEDS ORDERED: LORazepam 0.5 MG TABLET PO PRN
[2019-06-08] MEDS ORDERED: LORazepam 0.5 MG TABLET PO SCH (05:00)
[2019-06-09] MEDS ORDERED: LORazepam 0.5 MG TABLET PO ONE (05:00)
== END 2019-06-06 11:05 | disposition left against medical advice (07) | DRG 770 ==
LOC: YASAS 10:30 → Y6N 13:28
PROVIDERS: ADMIT Allergy & Immunology; ATTEND Allergy & Immunology
PROC: HZ2ZZZZ Detoxification Services for Substance Abuse Treatment (ICD-10-PCS; principal; 2019-06-04)
DX: F10.230 Alcohol dependence with withdrawal, uncomplicated (principal); F10.232 Alcohol dependence with withdrawal with perceptual disturbance; F11.20 Opioid dependence, uncomplicated; F14.20 Cocaine dependence, uncomplicated; F13.229 Sedative, hypnotic or anxiolytic dependence with intoxication, unspecified; F17.210 Nicotine dependence, cigarettes, uncomplicated; F19.280 Other psychoactive substance dependence with psychoactive substance-induced anxiety disorder; F19.282 Other psychoactive substance dependence with psychoactive substance-induced sleep disorder; F20.9 Schizophrenia, unspecified; F90.9 Attention-deficit hyperactivity disorder, unspecified type; F31.9 Bipolar disorder, unspecified; I10 Essential (primary) hypertension; E11.9 Type 2 diabetes mellitus without complications; Z79.84 Long term (current) use of oral hypoglycemic drugs; Z86.19 Personal history of other infectious and parasitic diseases; Z91.5 Personal history of self-harm; Z91.018 Allergy to other foods
CPT/HCPCS: 36415; 80053; 82962; 85027; 87389; J0735

== ENCOUNTER 2019-07-04 10:32 | Inpatient (IN) | payer OTHER ==
[2019-07-04 12:26] VITALS: BMI 25.2
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
[2019-07-04] MEDS ORDERED: LORazepam 1 MG TABLET PO PRN (13:28)
[2019-07-04] MEDS ORDERED: MAG HYDROX/AL HYDROX/SIMETH 30 ML UNIT-DOSE CUP PO PRN (13:28)
[2019-07-04] MEDS ORDERED: METHOCARBAMOL 500 MG TABLET PO PRN (13:28)
[2019-07-04] MEDS ORDERED: MAGNESIUM CITRATE 300 ML BOTTLE PO PRN (13:28)
[2019-07-04] MEDS ORDERED: NICOTINE POLACRILEX 4 MG GUM BUC PRN (13:28)
[2019-07-04] MEDS ORDERED: MELATONIN 5 MG TABLETS PO PRN (13:28)
[2019-07-04] MEDS ORDERED: hydrOXYzine PAMOATE 25 MG CAPSULE (FP) PO PRN (13:28)
[2019-07-04] MEDS ORDERED: ACETAMINOPHEN 325 MG TABLET (FP) PO PRN ×2 (13:28)
[2019-07-04] MEDS ORDERED: MENTHOL/PHENOL 1 EACH UD MM PRN (13:28)
[2019-07-04] MEDS ORDERED: BISMUTH SUBSALICYLATE 524 MG/30 ML UD PO PRN (13:28)
[2019-07-04] MEDS ORDERED: MAGNESIUM HYDROX 2400MG/30ML ORAL SUSPENSION 30 ML CUP PO PRN (13:28)
[2019-07-04] MEDS ORDERED: IBUPROFEN 400 MG TABLET (FP) PO PRN (13:28)
[2019-07-04] MEDS ORDERED: HALOPERIDOL 5 MG TABLET (FP) PO ONE ×2 (13:30→18:45)
[2019-07-04] MEDS ORDERED: BENZTROPINE MESYLATE 0.5 MG TABLET (FP) PO ONE (13:30)
[2019-07-04] MEDS ORDERED: LORazepam 2 MG TABLET PO ONE (14:45)
[2019-07-04] MEDS: metFORMIN HCL 500 MG TABLET (FP) PO SCH ×2 (15:09→22:46)
[2019-07-04 15:13] VITALS: TEMP 97.3
--- NOTE | 2019-07-04 16:20 | CONSULT ---
[facility] Psychiatric Consult - Data Date of interview: 07/04/19 Admission source: [facility] Identifying data: Revisit to [facility] and admission to [address] [place] [address] for this 39 y/o AA male self-referred for detoxification. VICTORIA issues : benzodiazepine, alcohol, cocaine, nicotine. Patient is single, a father of two (claimed one dependent at previous interview), homeless, unemployed and reportedly supported on " panhandling " + welfare. Substance Abuse History: Discussed with the patient. Details in current [facility] report as follows : Smoking history: Current every day smoker. Have you smoked in the past 12 months: Yes. Aproximately how many cigarettes per day: 5. Cigars Per Day: 0. Hx Chewing Tobacco Use: No. Initiated information on smoking cessation: Yes. 'Breaking Loose' booklet given: 07/04/19 (give on floor ). - Substance & Tx. History. Hx Alcohol Use: Yes. Hx Substance Use: Yes. Substance Use Type: Alcohol, Cocaine. Hx Substance Use Treatment: Yes (detox). - Substances abused. Alcohol. Substance route: Oral. Frequency: Daily. Amount used: 3 pints liquor. Age of first use: 16. Date of last use: . Crack. Substance route: Smoking. Frequency: Daily. Amount used: $ 200. Age of first use: 16. Date of last use: 07/03/19. Benzodiazepine ( Klonopin). Substance route: Oral. Frequency: 3-6 times per week. Amount used : 2mg tab twice a day. Age of first use: 38. Date of last use: 07/03/19 Medical History: Medical profile is remarkable for diabetes mellitus, antecedent of withdrawal-related seizures and a history of STD's (gonorrhea + syphilis). Psychiatric History: Already known to this institution. Patient presents with a history of multiple psychiatric hospitalizations ([facility], [facility], [facility], [facility], [facility]). He has been diagnosed with Schizophrenia (age 5) and ADHD ( age 16). Mr Colorado does not attend psychiatric OPD clinics. He utlizes various [facility] settings for refills of medications. Has been on haldol + seroquel + depakote (doses not recalled). No affiliation with any psychiatric OPD care providers. Patient admits to one suicide attempt via self-mutilation (2008). Physical/Sexual Abuse/Trauma History: Patient denies history of abuse. Additional Comment: Urine drug screen results: NINA-Cocaine. Noted. Mental Status Exam - Mental Status Exam Alert and Oriented to: Time, Place, Person Cognitive Function: Good Patient Appearance: Unkempt, Disheveled Mood: Nervous, Withdrawn, Irritable Affect: Mood Congruent, Constricted Patient Behavior: Fatigued, Cooperative Speech Pattern: Clear Voice Loudness: Normal Thought Process: Goal Oriented Thought Disorder: Not Present Hallucinations: Denies Suicidal Ideation: Denies Homicidal Ideation: Denies Insight/Judgement: Poor Sleep: Poorly (as per self-report), Difficulty falling asleep Appetite: Good Gait/Station: Normal Psychiatric Findings - Problem List ([place] 1, 2,3) (1) Schizophrenia Current Visit: Yes Status: Chronic Qualifiers: Schizophrenia type: unspecified Qualified Code(s): F20.9 - Schizophrenia, unspecified (2) Alcohol dependence with uncomplicated withdrawal Current Visit: Yes Status: Acute (3) Cocaine dependence Current Visit: Yes Status: Chronic Qualifiers: Substance use status: uncomplicated Qualified Code(s): F14.20 - Cocaine dependence, uncomplicated (4) Nicotine dependence Current Visit: Yes Status: Chronic Qualifiers: Nicotine product type: cigarettes Substance use status: uncomplicated Qualified Code(s): F17.210 - Nicotine dependence, cigarettes, uncomplicated (5) Substance induced mood disorder Current Visit: Yes Status: Chronic (6) Insomnia Current Visit: Yes Status: Chronic (7) Non-compliance Current Visit: Yes Status: Chronic - Initial Treatment Plan Initial Treatment Plan: Records reviewed. Patient is known to this press writer. Psychoeducation. Sleep hygiene. Detoxification. Medications resumed as : haldol 5 mg po daily + cogentin 0.5 mg po daily + seroquel 50 mg po hs. Side effects/ benefits of these drugs are discussed with patient. Mr Colorado has expressed his agreement with this plan of care. Gave consent (verbal) to MD. Barrett.
[2019-07-04] MEDS: INSULIN SLIDING SCALE (NOVOLOG) 1 VIAL SQ SCH (17:17)
[2019-07-04] MEDS: LORazepam 2 MG TABLET PO SCH ×2 (17:43→22:47)
[2019-07-04] MEDS ORDERED: BENZTROPINE MESYLATE 1 MG TABLET (FP) PO ONE (18:45)
[2019-07-04] MEDS ORDERED: QUEtiapine FUMARATE 100 MG TABLET (FP) PO ONE (22:00)
[2019-07-04] MEDS ORDERED: QUEtiapine FUMARATE 50 MG TABLET PO SCH (22:00)
[2019-07-04] MEDS ORDERED: THIAMINE HCL 100 MG TABLET (FP) PO SCH (22:00)
[2019-07-05] MEDS: INSULIN SLIDING SCALE (NOVOLOG) 1 VIAL SQ SCH (06:03)
[2019-07-05] MEDS: LORazepam 2 MG TABLET PO SCH (06:03)
[2019-07-05 06:05] VITALS: BP 152/92; PULSE 96
--- NOTE | 2019-07-05 06:49 | PN ---
[facility] Progress Note Note: MD'S NOTE: INFORMED THAT THE PT. WANTS TO SIGN OUT AMA FOR PERSONAL REASONS ADVISED NOT TO DO SO. BUT STILL WANTS TO SIGN OUT THE PT. SIGNED OUT AMA AND ABOUT TO LEAVE THE FACILITY SOON. RECOMMENDED: TO F/U WITH PMD AND OUT PT. PROGRAMS. PROVIDER: NACHO CONROY MD
[2019-07-05] MEDS ORDERED: HALOPERIDOL 5 MG TABLET (FP) PO SCH (10:00)
[2019-07-05] MEDS ORDERED: BENZTROPINE MESYLATE 1 MG TABLET (FP) PO SCH (10:00)
[2019-07-05] MEDS ORDERED: PRENATAL VITAMINS W/ FOLIC ACID TABLET (FP) PO SCH (10:00)
--- NOTE | 2019-07-05 13:49 | DS ---
[facility] Detox Discharge Summary Admission Date: 07/04/19 Discharge Date: 07/05/19 - History Present History: Alcohol Dependence Additional Comments: 39 years old male admitted on 07/04/19 for alcohol withdrawal sx management treated with ativan detox regimen patient left the detox unit around 0730 am today advertising copy writer has not assessed nor evaluated the patient - Physical Exam Results Vital Signs: Vital Signs Temperature 97.3 F L 07/04/19 15:13 Pulse Rate 96 H 07/05/19 06:04 Respiratory Rate 18 07/05/19 06:04 Blood Pressure 152/92 07/05/19 06:04 O2 Sat by Pulse Oximetry (%) bp elevation Pertinent Admission Physical Exam Findings: alcohol withdrawal Laboratory Last Values POC Glucometer 161 UNITS (80-120) 07/05/19 06:01 lab seen 06/06/10 report - Treatment Hospital Course: Detox Protocol Followed Patient has Accepted a Rehab Referral to: community support approach - Medication Discharge Medications: Ambulatory Orders Haloperidol [Haldol -] 5 mg PO DAILY 04/14/19 Quetiapine Fumarate [Seroquel -] 100 mg PO HS #30 tablet 04/16/19 Metformin HCl [Glucophage] 500 mg PO BID 30 Days #60 tablet 06/06/19 Benztropine Mesylate [Cogentin -] 0.5 mg PO DAILY 07/04/19 - Diagnosis (1) Alcohol dependence with uncomplicated withdrawal Status: Acute (2) Diabetes mellitus type II, controlled Status: Chronic Qualifiers: Diabetes mellitus manager private insulin use: without manager private use Diabetes mellitus complication status: without complication Qualified Code(s): E11.9 - Type 2 diabetes mellitus without complications (3) Nicotine dependence Status: Acute Qualifiers: Nicotine product type: cigarettes Substance use status: in withdrawal Qualified Code(s): F17.213 - Nicotine dependence, cigarettes, with withdrawal (4) Substance induced mood disorder Status: Suspected (5) HTN (hypertension) Status: Chronic Qualifiers: Hypertension type: essential hypertension Qualified Code(s): I10 - Essential (primary) hypertension - AMA Did Patient Leave Against Medical Advice: Yes
[2019-07-06] MEDS ORDERED: LORazepam 1 MG TABLET PO SCH (05:00)
[2019-07-07] MEDS ORDERED: LORazepam 0.5 MG TABLET PO PRN
[2019-07-07] MEDS ORDERED: LORazepam 0.5 MG TABLET PO SCH (05:00)
[2019-07-08] MEDS ORDERED: LORazepam 0.5 MG TABLET PO ONE (05:00)
== END 2019-07-05 07:26 | disposition left against medical advice (07) | DRG 770 ==
LOC: YASAS 10:32 → Y3N 14:25
PROVIDERS: ADMIT Allergy & Immunology; ATTEND Allergy & Immunology
PROC: HZ2ZZZZ Detoxification Services for Substance Abuse Treatment (ICD-10-PCS; principal; 2019-07-04)
DX: F10.230 Alcohol dependence with withdrawal, uncomplicated (principal); F14.20 Cocaine dependence, uncomplicated; F17.213 Nicotine dependence, cigarettes, with withdrawal; F19.24 Other psychoactive substance dependence with psychoactive substance-induced mood disorder; F20.9 Schizophrenia, unspecified; I10 Essential (primary) hypertension; E11.9 Type 2 diabetes mellitus without complications; G47.00 Insomnia, unspecified; R63.4 Abnormal weight loss; R63.8 Other symptoms and signs concerning food and fluid intake; Z91.018 Allergy to other foods; Z79.84 Long term (current) use of oral hypoglycemic drugs; Z87.438 Personal history of other diseases of male genital organs; Z86.69 Personal history of other diseases of the nervous system and sense organs; Z91.19 Patient's noncompliance with other medical treatment and regimen
CPT/HCPCS: 82962

== ENCOUNTER 2019-08-28 15:40 | Inpatient (IN) | payer OTHER ==
--- NOTE | 2019-08-28 19:34 | BHS.RME ---
Substance Use & Tx History - Last Treatment Where was last treatment: Detox COWS - Scale Resting Pulse: 0= [place] 80 or Below Sweatin=Flushed/Facial Moisture Restless Observation: 0= Sits Still Pupil Size: 0= Normal to Room Light Bone or Joint Aches: 2= Severe Diffuse Aches Runny Nose/ Eye Tearin= Nasal Congestion GI Upset > 30mins: 2= Nausea/Diarrhea (diarrhea x 2) Tremor Observation: 2= Slight Tremor Visible Yawning Observation: 1= 1-2x During Session Anxiety or Irritability: 2=Irritable/Anxious Goose Flesh Skin: 0=Smooth Skin COWS Score: 12 CIWA Nausea/Vomitin-No Nausea/No Vomiting Muscle Tremors: 2 Anxiety: 3 Agitation: 0-Normal Activity Paroxysmal Sweats: 2 Orientation: 0-Oriented Tacttile Disturbances: 0-None Auditory Disturbances: 0-None Visual Disturbances: 0-None Headache: 5-Severe CIWA-Ar Total Score: 12
[2019-08-28 19:46] VITALS: BMI 28.4
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
[2019-08-28] MEDS ORDERED: MAGNESIUM HYDROX 2400MG/30ML ORAL SUSPENSION 30 ML CUP PO PRN (20:47)
[2019-08-28] MEDS ORDERED: BISMUTH SUBSALICYLATE 524 MG/30 ML UD PO PRN (20:47)
[2019-08-28] MEDS ORDERED: ACETAMINOPHEN 325 MG TABLET (FP) PO PRN (20:47)
[2019-08-28] MEDS ORDERED: MAG HYDROX/AL HYDROX/SIMETH 30 ML UNIT-DOSE CUP PO PRN (20:47)
[2019-08-28] MEDS ORDERED: NICOTINE POLACRILEX 2 MG GUM BUC PRN (20:47)
[2019-08-28] MEDS ORDERED: MAGNESIUM CITRATE 300 ML BOTTLE PO PRN (20:47)
[2019-08-28] MEDS ORDERED: guaiFENesin 200 MG/10 ML 10 ML UNIT-DOSE CUPS PO PRN (20:47)
[2019-08-28] MEDS ORDERED: IBUPROFEN 400 MG TABLET (FP) PO PRN (20:47)
[2019-08-28] MEDS ORDERED: chlordiazePOXIDE HCL 10 MG CAPSULE PO PRN (20:47)
[2019-08-28] MEDS ORDERED: MENTHOL/PHENOL 1 EACH UD MM PRN (20:47)
[2019-08-28] MEDS ORDERED: MELATONIN 5 MG TABLETS PO PRN (20:47)
[2019-08-28] MEDS ORDERED: BENZOCAINE 20 % GEL TUBE MM PRN (20:55)
[2019-08-28] MEDS ORDERED: AMMONIUM LACTATE 12% LOTION 225 GM BOTTLE TP PRN (20:56)
[2019-08-28] MEDS ORDERED: cloNIDine HCL 0.1 MG TABLET PO PRN (20:57)
[2019-08-28] MEDS ORDERED: METHADONE HCL 10 MG TABLET (FOR DETOX USE ONLY) PO ONE (20:57)
[2019-08-28] MEDS: chlordiazePOXIDE HCL 25 MG CAPSULE PO SCH (21:57)
[2019-08-28] MEDS ORDERED: QUEtiapine FUMARATE 50 MG TABLET PO ONE (22:00)
[2019-08-28] MEDS: THIAMINE HCL 100 MG TABLET (FP) PO SCH (22:25)
[2019-08-29] MEDS: metFORMIN HCL 500 MG TABLET (FP) PO SCH ×2 (06:55→17:18)
[2019-08-29] MEDS: chlordiazePOXIDE HCL 25 MG CAPSULE PO SCH ×3 (06:55→22:12)
[2019-08-29] MEDS: ACETAMINOPHEN 325 MG TABLET (FP) PO PRN (06:59)
[2019-08-29 09:43] LABS: HEMATOCRIT 33.9 % (35.4-49); HEMOGLOBIN 11.1 GM/dL (11.7-16.9); MCH 27.9 pg (25.7-33.7); MCHC 32.8 g/dl (32.0-35.9); MEAN CELL VOLUME 85.3 fl (80-96); PLATELET COUNT 224 K/MM3 (134-434); RBC 3.97 M/mm3 (4.00-5.60); RDW 15.5 % (11.9-15.9)
[2019-08-29] MEDS ORDERED: METHADONE HCL 5 MG TABLET (FOR DETOX USE ONLY) PO ONE (10:00)
[2019-08-29 10:14] LABS: ALBUMIN 3.2 g/dl (3.4-5.0); BILIRUBIN,TOTAL 0.4 mg/dL (0.2-1); BLOOD UREA NITROGEN 11.3 mg/dL (7-18); CREATININE 0.9 mg/dL (0.55-1.3); POTASSIUM 3.8 mmol/L (3.5-5.1); TOT PROT 6.3 g/dl (6.4-8.2)
[2019-08-29] MEDS: NICOTINE 14 MG/24 HOURS TOPICAL PATCH TD SCH (10:24)
[2019-08-29] MEDS: PRENATAL VITAMINS W/ FOLIC ACID TABLET (FP) PO SCH (10:24)
--- NOTE | 2019-08-29 10:25 | PN ---
[facility] CIWA - CIWA Score Nausea/Vomitin-No Nausea/No Vomiting Muscle Tremors: 2 Anxiety: 3 Agitation: 0-Normal Activity Paroxysmal Sweats: 3 Orientation: 0-Oriented Tacttile Disturbances: 0-None Auditory Disturbances: 0-None Visual Disturbances: 0-None Headache: 1-Very Mild CIWA-Ar Total Score: 9 [facility] COWS - Scale Resting Pulse: 0= [place] 80 or Below Sweatin= Chills/Flushing Restless Observation: 1= Difficult to Sit Still Pupil Size: 0= Normal to Room Light Bone or Joint Aches: 2= Severe Diffuse Aches Runny Nose/ Eye Tearin= None GI Upset > 30mins: 1= Stomach Cramp Tremor Observation of Outstretched Hands: 2= Slight Tremor Visible Yawning Observation: 1= 1-2x During Session Anxiety or Irritability: 2=Irritable/Anxious Goose Flesh Skin: 0=Smooth Skin COWS Score: 10 B[facility] Progress Note (SOAP) Subjective: c/o anxiety, irritability, sweats, muscle aches, tiredness, and headache. Objective: 08/29/19 10:24 Vital Signs 08/29/19 08/29/19 08/29/19 03:30 06:53 09:08 Temperature 97.6 F 97.5 F L Pulse Rate 63 57 L Respiratory 18 16 18 Rate Blood Pressure 96/60 112/73 Laboratory Last Values WBC 5.0 K/mm3 (4.0-10.0) 08/29/19 07:20 RBC 3.97 M/mm3 (4.00-5.60) L 08/29/19 07:20 Hgb 11.1 GM/dL (11.7-16.9) L 08/29/19 07:20 Hct 33.9 % (35.4-49) L 08/29/19 07:20 MCV 85.3 fl (80-96) 08/29/19 07:20 MCH 27.9 pg (25.7-33.7) 08/29/19 07:20 MCHC 32.8 g/dl (32.0-35.9) 08/29/19 07:20 RDW 15.5 % (11.9-15.9) 08/29/19 07:20 Plt Count 224 K/MM3 (134-434) 08/29/19 07:20 MPV 8.0 fl (7.5-11.1) 08/29/19 07:20 Sodium 142 mmol/L (136-145) 08/29/19 07:20 Potassium 3.8 mmol/L (3.5-5.1) 08/29/19 07:20 Chloride 110 mmol/L (98-107) H 08/29/19 07:20 Carbon Dioxide 29 mmol/L (21-32) 08/29/19 07:20 Anion Gap 4 MMOL/L (8-16) L 08/29/19 07:20 BUN 11.3 mg/dL (7-18) 08/29/19 07:20 Creatinine 0.9 mg/dL (0.55-1.3) 08/29/19 07:20 Est GFR (CKD-EPI)AfAm 122.52 08/29/19 07:20 Est GFR (CKD-EPI)NonAf 105.71 08/29/19 07:20 POC Glucometer 170 UNITS (80-120) 08/29/19 06:57 Random Glucose 169 mg/dL (74-106) H 08/29/19 07:20 Calcium 8.0 mg/dL (8.5-10.1) L 08/29/19 07:20 Total Bilirubin 0.4 mg/dL (0.2-1) 08/29/19 07:20 AST 10 U/L (15-37) L 08/29/19 07:20 ALT 14 U/L (13-61) 08/29/19 07:20 Alkaline Phosphatase 64 U/L (45-117) 08/29/19 07:20 Total Protein 6.3 g/dl (6.4-8.2) L 08/29/19 07:20 Albumin 3.2 g/dl (3.4-5.0) L 08/29/19 07:20 Labs noted. Assessment: 08/29/19 10:24 AOX3, in no respiratory distress. Full ROM, ambulating in the unit. Withdrawal symptoms. Plan: continue detox.
--- NOTE | 2019-08-29 13:05 | CONSULT ---
[facility] Psychiatric Consult - Data Date of interview: 08/29/19 Admission source: [facility] Identifying data: Readmission to [address] [place] [address] for this 39 y/o AA male returning to [facility] for detoxification treatment. VICTORIA issues : benzodiazepine, alcohol, cocaine, nicotine, metamphetamine. Patient is single, a father of two, homeless , unemployed and reportedly supported on " panhandling " + welfare. Substance Abuse History: Discussed with patient. Refer to current [facility] report for details : Smoking history: Current every day smoker. Have you smoked in the past 12 months: Yes. Aproximately how many cigarettes per day: 10. Cigars Per Day: 0. Hx Chewing Tobacco Use: No. Initiated information on smoking cessation: Yes. 'Breaking Loose' booklet given: 08/28/19. - Substance & Tx. History. Hx Alcohol Use: Yes. Hx Substance Use: Yes. Substance Use Type: Alcohol, Cocaine, Opiates. Hx Substance Use Treatment: Yes (DETOX, REHAB). - Substances abused. Heroin. Substance route: Inhalation. Frequency: Daily. Amount used: 4 BAGS. Age of first use: 23. Date of last use: 08/23/19. Alcohol. Substance route: Oral. Frequency: Daily. Amount used: LIQUOR- 3 PINTS. Age of first use: 26. Date of last use: 08/28/19. Benzodiazepine ( Klonopin). Substance route: Oral. Frequency: Daily. Amount used: 1mg. Age of first use: 33. Date of last use: 08/25/19 Medical History: Significant for diabetes mellitus, antecedent of withdrawal- related seizures and a history of STD's (gonorrhea + syphilis). Psychiatric History: Frequent user of MAT services at [facility]. Patient presents with a history of multiple psychiatric hospitalizations ([facility], [facility], [facility], [facility], [facility]). He has been diagnosed with Schizophrenia (age 5) and ADHD ( age 16). Mr [place] has a pattern of not attending psychiatric OPD clinics. Utilizes various CPEP settings for refills of medications. Has been on haldol + seroquel + depakote (doses not recalled). In this interview, the patient indicates that he gets psychiatric OPD care at the [facility] mental health clinic (questionable historian). History of one suicide attempt via self- mutilation (2009). Physical/Sexual Abuse/Trauma History: Patient denies. Additional Comment: Urine drug screen results: NINA-Cocaine, MTD-Methadone. Noted. Mental Status Exam - Mental Status Exam Alert and Oriented to: Time, Place, Person Cognitive Function: Good Patient Appearance: Well Groomed Mood: Nervous, Withdrawn Affect: Constricted Patient Behavior: Fatigued, Appropriate, Cooperative Speech Pattern: Clear Voice Loudness: Normal Thought Process: Goal Oriented Thought Disorder: Not Present Hallucinations: Denies Suicidal Ideation: Denies Homicidal Ideation: Denies Insight/Judgement: Poor Sleep: Poorly, Difficulty falling asleep Appetite: Good Gait/Station: Normal Psychiatric Findings - Problem List ([place] 1, 2,3) (1) Alcohol dependence with uncomplicated withdrawal Current Visit: Yes Status: Acute (2) Opioid dependence with withdrawal Current Visit: Yes Status: Acute (3) Cocaine dependence Current Visit: Yes Status: Chronic Qualifiers: Substance use status: uncomplicated Qualified Code(s): F14.20 - Cocaine dependence, uncomplicated (4) Benzodiazepine dependence Current Visit: Yes Status: Chronic (5) Nicotine dependence Current Visit: Yes Status: Chronic (6) Substance induced mood disorder Current Visit: Yes Status: Chronic (7) Schizophrenia Current Visit: Yes Status: Chronic Qualifiers: Schizophrenia type: unspecified Qualified Code(s): F20.9 - Schizophrenia, unspecified (8) Insomnia Current Visit: Yes Status: Chronic (9) Non-compliance Current Visit: Yes Status: Chronic - Initial Treatment Plan Initial Treatment Plan: Psychoeducation. Sleep hygiene. Detoxification. AA/NA meetings. Noted report of decanoate haloperidol (08/24/19) in Medication Reconciliation list. Will resume seroquel 5o mg po hs. Side effects/benefits discussed with patient. Mr [place] daniel expressed his agreement with this plan of care. Observation.
--- NOTE | 2019-08-29 13:11 | EKG ---
Test Reason : Blood Pressure : / mmHG Vent. Rate : 071 BPM Atrial Rate : 071 BPM P-R Int : 160 ms QRS Dur : 078 ms QT Int : 418 ms P-R-T Axes : 082 071 026 degrees QTc Int : 454 ms NORMAL SINUS RHYTHM NONSPECIFIC ST AND T WAVE ABNORMALITY ABNORMAL ECG WHEN COMPARED WITH ECG OF 06-MAY-2018 20:01, NO SIGNIFICANT CHANGE WAS FOUND Confirmed by ARTEM RASMUSSEN MD ([id number]) on 08/29/2019 1:11:20 PM Referred By: Confirmed By:ARTEM RASMUSSEN MD
[2019-08-29 15:52] LABS: PH,URINE 5.5 (5.0-8.0); URINE APPEARANCE CLEAR; URINE BILIRUBIN NEGATIVE (NEGATIVE); URINE COLOR YELLOW; URINE GLUCOSE (UA) 3+ (NEGATIVE); URINE KETONE NEGATIVE (NEGATIVE); URINE LEUK ESTERASE NEGATIVE (NEGATIVE); URINE NITRITE NEGATIVE (NEGATIVE); URINE PROTEIN NEGATIVE (NEGATIVE); URINE UROBILINOGEN 0.2 mg/dL (0.2-1.0)
[2019-08-29] MEDS: IBUPROFEN 600 MG TABLET (FP) PO PRN ×2 (18:42→22:12)
[2019-08-29] MEDS: QUEtiapine FUMARATE 50 MG TABLET PO SCH (22:11)
[2019-08-29] MEDS: THIAMINE HCL 100 MG TABLET (FP) PO SCH (22:12)
[2019-08-30] MEDS: metFORMIN HCL 500 MG TABLET (FP) PO SCH ×2 (06:27→17:28)
[2019-08-30] MEDS: chlordiazePOXIDE 5 MG CAPSULE PO SCH ×3 (06:27→21:09)
--- NOTE | 2019-08-30 09:01 | PN ---
S CIWA - CIWA Score Nausea/Vomitin-Mild Nausea/No Vomiting Muscle Tremors: 3 Anxiety: 2 Agitation: 0-Normal Activity Paroxysmal Sweats: 1-Minimal Palms Moist Orientation: 0-Oriented Tacttile Disturbances: 1-Very Mild Itch/Numbness Auditory Disturbances: 0-None Visual Disturbances: 1-Very Mild Sensitivity Headache: 0-None Present CIWA-Ar Total Score: 9 [facility]HS COWS - Scale Resting Pulse: 0= [place] 80 or Below Sweatin= Chills/Flushing Restless Observation: 0= Sits Still Pupil Size: 1= Pupils >than Normal Bone or Joint Aches: 1= Mild Discomfort Runny Nose/ Eye Tearin= Nasal Congestion GI Upset > 30mins: 2= Nausea/Diarrhea Tremor Observation of Outstretched Hands: 2= Slight Tremor Visible Yawning Observation: 0= None Anxiety or Irritability: 1=Feels Anxious/Irritable Goose Flesh Skin: 0=Smooth Skin COWS Score: 9 S Progress Note (SOAP) Subjective: 39 years old male admitted on 08/28/19 for alcohol benzo opiate withdrawal sx management treating with librium and methadone detox regiments resting in bed irritable limited conversation with staff Objective: 08/30/19 09:04 Vital Signs Temperature 97.4 F L 08/30/19 04:52 Pulse Rate 73 08/30/19 04:52 Respiratory Rate 18 08/30/19 04:52 Blood Pressure 107/75 08/30/19 04:52 O2 Sat by Pulse Oximetry (%) Laboratory Last Values WBC 5.0 K/mm3 (4.0-10.0) 08/29/19 07:20 RBC 3.97 M/mm3 (4.00-5.60) L 08/29/19 07:20 Hgb 11.1 GM/dL (11.7-16.9) L 08/29/19 07:20 Hct 33.9 % (35.4-49) L 08/29/19 07:20 MCV 85.3 fl (80-96) 08/29/19 07:20 MCH 27.9 pg (25.7-33.7) 08/29/19 07:20 MCHC 32.8 g/dl (32.0-35.9) 08/29/19 07:20 RDW 15.5 % (11.9-15.9) 08/29/19 07:20 Plt Count 224 K/MM3 (134-434) 08/29/19 07:20 MPV 8.0 fl (7.5-11.1) 08/29/19 07:20 Sodium 142 mmol/L (136-145) 08/29/19 07:20 Potassium 3.8 mmol/L (3.5-5.1) 08/29/19 07:20 Chloride 110 mmol/L (98-107) H 08/29/19 07:20 Carbon Dioxide 29 mmol/L (21-32) 08/29/19 07:20 Anion Gap 4 MMOL/L (8-16) L 08/29/19 07:20 BUN 11.3 mg/dL (7-18) 08/29/19 07:20 Creatinine 0.9 mg/dL (0.55-1.3) 08/29/19 07:20 Est GFR (CKD-EPI)AfAm 122.52 08/29/19 07:20 Est GFR (CKD-EPI)NonAf 105.71 08/29/19 07:20 POC Glucometer 189 UNITS (80-120) 08/30/19 06:28 Random Glucose 169 mg/dL (74-106) H 08/29/19 07:20 Calcium 8.0 mg/dL (8.5-10.1) L 08/29/19 07:20 Total Bilirubin 0.4 mg/dL (0.2-1) 08/29/19 07:20 AST 10 U/L (15-37) L 08/29/19 07:20 ALT 14 U/L (13-61) 08/29/19 07:20 Alkaline Phosphatase 64 U/L (45-117) 08/29/19 07:20 Total Protein 6.3 g/dl (6.4-8.2) L 08/29/19 07:20 Albumin 3.2 g/dl (3.4-5.0) L 08/29/19 07:20 Urine Color Yellow 08/29/19 08:28 Urine Appearance Clear 08/29/19 08:28 Urine pH 5.5 (5.0-8.0) D 08/29/19 08:28 Ur Specific [place] 1.040 (1.010-1.035) H 08/29/19 08:28 Urine Protein Negative (NEGATIVE) 08/29/19 08:28 Urine Glucose (UA) 3+ (NEGATIVE) H 08/29/19 08:28 Urine Ketones Negative (NEGATIVE) 08/29/19 08:28 Urine Blood Negative (NEGATIVE) 08/29/19 08:28 Urine Nitrite Negative (NEGATIVE) 08/29/19 08:28 Urine Bilirubin Negative (NEGATIVE) 08/29/19 08:28 Urine Urobilinogen 0.2 mg/dL (0.2-1.0) 08/29/19 08:28 Ur Leukocyte Esterase Negative (NEGATIVE) 08/29/19 08:28 RPR Titer Nonreactive (NONREACTIVE) 08/29/19 07:20 lab noted 08/30/19 09:05 diabetes treated with metformin Assessment: 08/30/19 09:05 alcohol benzo opiate withdrawal Plan: librium and methadone regiments
[2019-08-30] MEDS ORDERED: METHADONE HCL 5 MG TABLET PO ONE (10:00)
[2019-08-30] MEDS: NICOTINE 14 MG/24 HOURS TOPICAL PATCH TD SCH (10:22)
[2019-08-30] MEDS: PRENATAL VITAMINS W/ FOLIC ACID TABLET (FP) PO SCH (10:22)
[2019-08-30] MEDS: ACETAMINOPHEN 325 MG TABLET (FP) PO PRN (10:23)
[2019-08-30] MEDS: IBUPROFEN 600 MG TABLET (FP) PO PRN (19:53)
[2019-08-30] MEDS: QUEtiapine FUMARATE 50 MG TABLET PO SCH (21:09)
[2019-08-30] MEDS: THIAMINE HCL 100 MG TABLET (FP) PO SCH (21:09)
[2019-08-31] MEDS ORDERED: chlordiazePOXIDE HCL 10 MG CAPSULE PO PRN
[2019-08-31] MEDS ORDERED: chlordiazePOXIDE HCL 10 MG CAPSULE PO SCH (05:00)
[2019-08-31 06:12] VITALS: BP 105/63; PULSE 65; TEMP 97.1
[2019-08-31] MEDS: metFORMIN HCL 500 MG TABLET (FP) PO SCH (06:23)
--- NOTE | 2019-08-31 09:21 | DS ---
[facility] Detox Discharge Summary Admission Date: 08/28/19 Discharge Date: 08/31/19 - History Present History: Alcohol Dependence, Opioid Dependence, Sedative Dependence Additional Comments: 39 years old male admitted on 08/28/19 for alcohol benzo opiate withdrawal sx management treated with librium and methadone detox regiments Mr [place] requests to leave the detox unit today that [facility] arranged reports feeling better alert oriented x 3 seen by psychiatrist resume seroquel and haldol decanoate IM monthly cardiac s1s2 regular rate rhythm respiratory clear lungs bilaterally on auscultation skin warm and dry Pertinent Past History: time for discharge 42 minutes Mr [place] prefers to leave a day early to begin [facility] for substance abuse recovery - Physical Exam Results Vital Signs: Vital Signs Temperature 97.1 F L 08/31/19 06:11 Pulse Rate 65 08/31/19 06:11 Respiratory Rate 18 08/31/19 06:38 Blood Pressure 105/63 08/31/19 06:11 O2 Sat by Pulse Oximetry (%) Pertinent Admission Physical Exam Findings: alcohol benzo opiate withdrawal Laboratory Last Values WBC 5.0 K/mm3 (4.0-10.0) 08/29/19 07:20 RBC 3.97 M/mm3 (4.00-5.60) L 08/29/19 07:20 Hgb 11.1 GM/dL (11.7-16.9) L 08/29/19 07:20 Hct 33.9 % (35.4-49) L 08/29/19 07:20 MCV 85.3 fl (80-96) 08/29/19 07:20 MCH 27.9 pg (25.7-33.7) 08/29/19 07:20 MCHC 32.8 g/dl (32.0-35.9) 08/29/19 07:20 RDW 15.5 % (11.9-15.9) 08/29/19 07:20 Plt Count 224 K/MM3 (134-434) 08/29/19 07:20 MPV 8.0 fl (7.5-11.1) 08/29/19 07:20 Sodium 142 mmol/L (136-145) 08/29/19 07:20 Potassium 3.8 mmol/L (3.5-5.1) 08/29/19 07:20 Chloride 110 mmol/L (98-107) H 08/29/19 07:20 Carbon Dioxide 29 mmol/L (21-32) 08/29/19 07:20 Anion Gap 4 MMOL/L (8-16) L 08/29/19 07:20 BUN 11.3 mg/dL (7-18) 08/29/19 07:20 Creatinine 0.9 mg/dL (0.55-1.3) 08/29/19 07:20 Est GFR (CKD-EPI)AfAm 122.52 08/29/19 07:20 Est GFR (CKD-EPI)NonAf 105.71 08/29/19 07:20 POC Glucometer 194 UNITS (80-120) 08/31/19 05:08 Random Glucose 169 mg/dL (74-106) H 08/29/19 07:20 Calcium 8.0 mg/dL (8.5-10.1) L 08/29/19 07:20 Total Bilirubin 0.4 mg/dL (0.2-1) 08/29/19 07:20 AST 10 U/L (15-37) L 08/29/19 07:20 ALT 14 U/L (13-61) 08/29/19 07:20 Alkaline Phosphatase 64 U/L (45-117) 08/29/19 07:20 Total Protein 6.3 g/dl (6.4-8.2) L 08/29/19 07:20 Albumin 3.2 g/dl (3.4-5.0) L 08/29/19 07:20 Urine Color Yellow 08/29/19 08:28 Urine Appearance Clear 08/29/19 08:28 Urine pH 5.5 (5.0-8.0) D 08/29/19 08:28 Ur Specific [place] 1.040 (1.010-1.035) H 08/29/19 08:28 Urine Protein Negative (NEGATIVE) 08/29/19 08:28 Urine Glucose (UA) 3+ (NEGATIVE) H 08/29/19 08:28 Urine Ketones Negative (NEGATIVE) 08/29/19 08:28 Urine Blood Negative (NEGATIVE) 08/29/19 08:28 Urine Nitrite Negative (NEGATIVE) 08/29/19 08:28 Urine Bilirubin Negative (NEGATIVE) 08/29/19 08:28 Urine Urobilinogen 0.2 mg/dL (0.2-1.0) 08/29/19 08:28 Ur Leukocyte Esterase Negative (NEGATIVE) 08/29/19 08:28 RPR Titer Nonreactive (NONREACTIVE) 08/29/19 07:20 lab noted long history of diabetes low calcium encourage no concentrated sugar calcium rich food - Treatment Hospital Course: Detox Protocol Followed, Detoxed Safely, Responded well, Discharged Condition Good, Rehab Referral Accepted Patient has Accepted a [facility] Referral to: [facility] - Medication Discharge Medications: Ambulatory Orders Quetiapine Fumarate [Seroquel -] 100 mg PO HS #30 tablet 04/16/19 Metformin HCl [Glucophage] 500 mg PO BID 30 Days #60 tablet 06/06/19 Haloperidol Decanoate [Haldol Decanoate 100] 500 mg IM MONTHLY 08/28/19 Naloxone HCl [Narcan] 4 mg NS ASDIR PRN #1 spray 08/31/19 - Diagnosis (1) Alcohol dependence with uncomplicated withdrawal Status: Acute (2) Opioid dependence with withdrawal Status: Acute (3) Sedative, hypnotic or anxiolytic dependence with intoxication, unspecified Status: Acute (4) Diabetes mellitus type II, controlled Status: Chronic Qualifiers: 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: without assisted use Diabetes mellitus complication status: without complication Qualified Code(s): E11.9 - Type 2 diabetes mellitus without complications (5) HTN (hypertension) Status: Chronic Qualifiers: Hypertension type: essential hypertension Qualified Code(s): I10 - Essential (primary) hypertension (6) Nicotine dependence Status: Acute Qualifiers: Nicotine product type: cigarettes Substance use status: in withdrawal Qualified Code(s): F17.213 - Nicotine dependence, cigarettes, with withdrawal (7) Substance induced mood disorder Status: Suspected - AMA Did Patient Leave Against Medical Advice: No CIWA Score - CIWA Score Nausea/Vomitin-No Nausea/No Vomiting Muscle Tremors: 2 Anxiety: 1-Mildly Anxious Agitation: 0-Normal Activity Paroxysmal Sweats: No Perspiration Orientation: 0-Oriented Tacttile Disturbances: 0-None Auditory Disturbances: 0-None Visual Disturbances: 1-Very Mild Sensitivity Headache: 0-None Present CIWA-Ar Total Score: 4 COWS (PN) - Opiate Withdrawal Resting Pulse: 0= DC 80 or Below Sweatin= No chills or Flushing Restless Observation: 0= Sits Still Pupil Size: 0= Normal to Room Light Bone or Joint Aches: 1= Mild Discomfort Runny Nose/ Eye Tearin= None GI Upset > 30mins: 0= None Tremor Observation of Outstretched Hands: 1= Tremor [place], Not Seen Yawning Observation: 1= 1-2x During Session Anxiety or Irritability: 1=Feels Anxious/Irritable Goose Flesh Skin: 0=Smooth Skin COWS Score: 4
[2019-08-31] MEDS ORDERED: METHADONE HCL 5 MG TABLET (FOR DETOX USE ONLY) PO ONE (10:00)
[2019-09-01] MEDS ORDERED: chlordiazePOXIDE HCL 10 MG CAPSULE PO ONE (05:00)
[2019-09-01] MEDS ORDERED: METHADONE HCL 10 MG TABLET (FOR DETOX USE ONLY) PO ONE (06:00)
== END 2019-08-31 08:43 | disposition home or self-care (01) | DRG 773 ==
LOC: YASAS 15:40 → Y3N 20:11
PROVIDERS: ADMIT Allergy & Immunology; ATTEND Allergy & Immunology
PROC: HZ2ZZZZ Detoxification Services for Substance Abuse Treatment (ICD-10-PCS; principal; 2019-08-28)
DX: F10.230 Alcohol dependence with withdrawal, uncomplicated (principal); F11.23 Opioid dependence with withdrawal; F13.230 Sedative, hypnotic or anxiolytic dependence with withdrawal, uncomplicated; F14.20 Cocaine dependence, uncomplicated; F17.213 Nicotine dependence, cigarettes, with withdrawal; F31.9 Bipolar disorder, unspecified; F19.24 Other psychoactive substance dependence with psychoactive substance-induced mood disorder; F20.9 Schizophrenia, unspecified; I10 Essential (primary) hypertension; E11.9 Type 2 diabetes mellitus without complications; Z79.84 Long term (current) use of oral hypoglycemic drugs; E83.51 Hypocalcemia; G47.00 Insomnia, unspecified; L85.3 Xerosis cutis; R94.31 Abnormal electrocardiogram [ECG] [EKG]; Z91.89 Other specified personal risk factors, not elsewhere classified; Z56.0 Unemployment, unspecified; Z59.0 Homelessness; Z91.018 Allergy to other foods; Z91.19 Patient's noncompliance with other medical treatment and regimen
CPT/HCPCS: 36415; 80053; 81003; 82962; 85027; 86593; 93005; 93010; J0735

== ENCOUNTER 2020-03-21 14:41 | Inpatient (IN) | payer OTHER ==
--- NOTE | 2020-03-21 15:17 | BHS.RME ---
Substance Use & Tx History - Substance Use History Alcohol Substance amount: 2 pints jeff Frequency of use: Daily Substance route: Oral Date of Last Use: 03/20/20 Cocaine-Crack Substance amount: 12 bags Frequency of use: Daily Substance route: Smoking Date of Last Use: 03/21/20 Klonopin Substance amount: 2 sticks Frequency of use: Daily Substance route: Oral Date of Last Use: 03/20/20 Nicotine Substance amount: 7 cigs Frequency of use: Daily Substance route: Smoking Date of Last Use: 03/21/20 - Last Treatment Date of last treatment: November 2019, left AMA Treatment type: Substance Use Disorder ([facility]) Where was last treatment: Detox Physical/Psych/Mental Status - Behavior General Behavior: Increased activity (restlessness, agitation) Eye Contact: Normal - Cooperativeness Cooperativeness: Cooperative - Thinking Thought Processes: Tight Thought content: Future oriented - Physical Health Problems Is patient presently having any pain?: No Does patient presently have any injuries (include location): No Does patient currently have a fever: No CIWA Nausea/Vomitin-Mild Nausea/No Vomiting Muscle Tremors: 3 Anxiety: 3 Agitation: 2 Paroxysmal Sweats: 3 Orientation: 0-Oriented Tacttile Disturbances: 0-None Auditory Disturbances: 0-None Visual Disturbances: 0-None Headache: 0-None Present CIWA-Ar Total Score: 12
[2020-03-21 16:47] VITALS: BMI 27.4
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
[2020-03-21] MEDS ORDERED: chlordiazePOXIDE HCL 25 MG CAPSULE PO PRN (17:08)
[2020-03-21] MEDS ORDERED: NICOTINE POLACRILEX 2 MG GUM BUC PRN (17:08)
[2020-03-21] MEDS ORDERED: BISMUTH SUBSALICYLATE 524 MG/30 ML UD PO PRN (17:08)
[2020-03-21] MEDS ORDERED: ACETAMINOPHEN 325 MG TABLET (FP) PO PRN ×2 (17:08)
[2020-03-21] MEDS ORDERED: MENTHOL/PHENOL 1 EACH UD MM PRN (17:08)
[2020-03-21] MEDS ORDERED: METHOCARBAMOL 500 MG TABLET PO PRN (17:08)
[2020-03-21] MEDS ORDERED: ONDANSETRON *ODT* 4 MG TABLET SL PRN (17:08)
[2020-03-21] MEDS ORDERED: MAGNESIUM HYDROX 2400MG/30ML ORAL SUSPENSION 30 ML CUP PO PRN (17:08)
[2020-03-21] MEDS ORDERED: MAGNESIUM CITRATE 300 ML BOTTLE PO PRN (17:08)
[2020-03-21] MEDS ORDERED: MAG HYDROX/AL HYDROX/SIMETH 30 ML UNIT-DOSE CUP PO PRN (17:08)
[2020-03-21] MEDS: chlordiazePOXIDE HCL 25 MG CAPSULE PO SCH ×2 (18:47→23:04)
[2020-03-21] MEDS: hydrOXYzine PAMOATE 25 MG CAPSULE (FP) PO SCH ×2 (18:47→22:56)
[2020-03-21] MEDS: NICOTINE 14 MG/24 HOURS TOPICAL PATCH TD SCH (18:47)
--- OUTSIDE RECORDS SUMMARY | 2020-03-21 20:42 | XMS ---
:1980 Author Organization [facility] Care Team Providers Name Role Phone OUTREACH, TOAN Unavailable Unavailable THEODORE BENNETT (R) Unavailable Unavailable COMMUNITY Unavailable Unavailable Re-disclosure Warning The records that you are about to access may contain information from federally- assisted alcohol or drug abuse programs. If such information is present, then the following federally mandated warning applies: This information has been disclosed to you from records protected by federal confidentiality rules (42 CFR part 2). The federal rules prohibit you from making any further disclosure of this information unless further disclosure is expressly permitted by the written consent of the person to whom it pertains or as otherwise permitted by 42 CFR part 2. A general authorization for the release of medical or other information is NOT sufficient for this purpose. The Federal rules restrict any use of the information to criminally investigate or prosecute any alcohol or drug abuse patient.The records that you are about to access may contain highly sensitive health information, the redisclosure of which is protected by Article 27-F of the [facility] Public Health law. If you continue you may haveaccess to information: Regarding HIV / AIDS; Provided by facilities licensed or operated by the [facility] Office of Mental Health; or Provided by the [facility] Office for People With Developmental Disabilities. If such information is present, then the following [facility] mandated warning applies: This information has been disclosed to you from confidential records which are protected by state law. State law prohibits you from making any further disclosure of this information without the specific written consent of the person to whom it pertains, or as otherwise permitted by law. Any unauthorized further disclosure in violation of state law may result in a fine or fpc sentence or both. A general authorization for the release of medical or other information is NOT sufficient authorization for further disclosure. Encounters Encounter Providers Location Date Indications Data Source(s ) Outpatient Attender: THEODORE BENNETT 11/17/2019 [facility] 02:37:24 PM [facility] EDT Patient admitted. Outpatient Attender: JOSH SALAS 11/13/2019 10:59:55 AM [facility] Patient admitted. Outpatient Attender: TOAN 11/11/2019 09:46:51 AM [facility] Patient admitted. Outpatient Attender: TOAN 10/27/2019 09:17:23 AM [facility] Patient admitted. Outpatient Attender: TOAN 10/22/2019 10:40:46 AM [facility] Patient admitted. Outpatient Attender: TOAN 10/21/2019 11:59:41 AM [facility] Patient admitted. Medications Medication Brand Start Product Dose Route Administrative Pharmacy [facility] Indications Reaction Description Data Name Date Form Instructions Instructions Source(s) Acetaminoph acetam 11/27/ Oral complet Leg pain, 2 tablets The en 500 MG inophe 2015 ed left every 6 Insti tute Oral Tablet n 500 12:00: hours as F or Family acetaminoph MG PO 00 AM needed Heal th en 500 MG TABS EDT PO TABS Leg pain, left 2 tablets every 6 hours as needed Naproxen naproxen 11/27/2014 Oral completed Leg o ne The 500 MG Oral 500 MG PO 12:00:00 AM pain, tablet [place] Tablet TABS EDT left twice For Family naproxen daily as Health 500 MG PO needed TABS for pain Leg pain, left one tablet twice daily as needed for americo n 1 ML Ketorolac 11/27/2014 Intramuscular completed Leg 60 The Ketorolac Tromethamine 12:00:00 AM pain, MG [place] Tromethamine 30 MG/ML IM EDT left IM For Family 30 MG/ML SOLN X 1 Health Injection Ketorolac Tromethamine 30 MG/ML IM SOLN Leg pain, left 60 MG IM X 1 Insurance Providers Payer name Policy type Policy ID Covered Covered alliance party's Policy P avelina / Coverage alliance party ID relationship to [place] [employer] ormation type [place] MED[place] [id number] SP [id number] [place] [id number] [facility] [id number] SP [id number] U SLIDING FEE NA Self NA MEDICAID [place] [id number] Self [id number] CORTNEY CARE [id number] Self [id number] CORTNEY CARE [id number] Self [id number] CORTNEY CARE [id number] Self [id number] U Problems, Conditions, and Diagnoses Code Display Name Description Problem Type Effective Dates Data Source(s) M79.606 Leg pain Leg pain [id number] 06/08/2014 The [place] 12:00:00 AM EST For [facility] Emergency Room Emergency Room Diagnosis 11/17/2019 The In stitute Visit Follow Up Visit Follow Up 02:37:24 PM EDT For [facility] ER Follow Up ER Follow Up Diagnosis 10/22/2019 The [facility] Phone Call Phone Call 10:40:46 AM EDT For [facility] y Health [phone] [id number] Leg pain, left Diagnosis The [facility] Health [phone] Leg pain, left Diagnosis The [facility] [phone] [id number] Leg pain, left Diagnosis The [facility] Results ID Date Data Source [id number] 12/23/2019 10:07:00 PM EDT [facility] Name Value Range Interpretation Description Data Sup porting Code Source(s) Document(s ) COV2N [facility] NASOPHARYNGEAL Reportable This lab was ordered by [facility] and reported by [facility]. ID Date Data Source [id number] 12/23/2019 04:23:00 AM EDT [facility] Name Value Range Interpretation Code Description Data Demetria rce(s) Supporting Document(s ) SARS-COV2- [facility] ID-NOW(William al) This lab was ordered by [facility] and reported by [facility]. ID Date Data Source [id number] 12/14/2019 01:15:00 PM EDT [facility] Name Value Range Interpretation Description Data Sup porting Code Source(s) Document(s ) SARS [facility] CORONAVIRUS 2 RNA This lab was ordered by [facility] and reported by [facility]. ID Date Data Source [id number] 12/07/2019 03:49:00 PM EDT [facility] Name Value Range Interpretation Description Data Sup porting Code Source(s) Document(s ) COV2N [facility] NASOPHARYNGEAL Reportable This lab was ordered by [facility] and reported by [facility]. ID Date Data Source [id number] 11/19/2019 04:45:00 PM EDT [facility] Name Value Range Interpretation Code Description Data Demetria rce(s) Supporting Document(s ) SARS-COV-2 [facility] PCR This lab was ordered by SANGITA MORGAN and re ported by [facility]. Procedure Social History Code Duration Value Status Description Data Source(s ) Tobacco smoking 12/04/2014 Current every The In stitute For status NHIS 12:00:00 AM EDT day smoker Family H ealth Alcohol intake 12/04/2014 Current The Instit [facility] For 12:00:00 AM EDT non-drinker of Famil y Health alcohol (finding) Cigarettes smoked 12/04/2014 UNK The Ins titute For current (pack per 12:00:00 AM EDT WEALTH at work ) - Reported Cigarette 12/04/2014 UNK The [place] For pack-years 12:00:00 AM EDT Family He alth Sex assigned at Not on file Not on file [facility] [place] [facility] Sex assigned at Not on file Not on file [facility] [place] [facility] Sex assigned at Not on file Not on file [facility] [place] [facility] Sex assigned at Not on file Not on file [facility] [place] [facility] Sex assigned at Not on file Not on file [facility] [place] [facility] Sex assigned at Not on file Not on file [facility] [place] [facility]
[2020-03-21] MEDS: IBUPROFEN 400 MG TABLET (FP) PO PRN (22:12)
[2020-03-21] MEDS: MELATONIN 5 MG TABLETS PO SCH (22:54)
[2020-03-21] MEDS: INSULIN SLIDING SCALE (NOVOLOG) 1 VIAL SQ SCH (22:56)
[2020-03-21] MEDS: THIAMINE HCL 100 MG TABLET (FP) PO SCH (22:56)
[2020-03-22] MEDS: hydrOXYzine PAMOATE 25 MG CAPSULE (FP) PO SCH ×5 (07:16→23:47)
[2020-03-22] MEDS: chlordiazePOXIDE HCL 25 MG CAPSULE PO SCH ×4 (07:16→23:46)
[2020-03-22] MEDS: INSULIN SLIDING SCALE (NOVOLOG) 1 VIAL SQ SCH ×4 (07:17→23:46)
[2020-03-22] MEDS: metFORMIN HCL 500 MG TABLET (FP) PO SCH ×2 (07:35→17:30)
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
--- NOTE | 2020-03-22 08:24 | PN ---
Teaching Attending Note Name of Resident: Crow Crouch ATTENDING PHYSICIAN STATEMENT I saw and evaluated the patient. I reviewed the resident's note and discussed the case with the resident. I agree with the resident's findings and plan as documented. SUBJECTIVE: OBJECTIVE: ASSESSMENT AND PLAN: 1. Alcohol use disorder Plan 1. Librium detox protocol
[2020-03-22] MEDS: IBUPROFEN 400 MG TABLET (FP) PO PRN ×2 (08:48→15:22)
--- NOTE | 2020-03-22 09:32 | PN ---
S CIWA - CIWA Score Nausea/Vomitin Muscle Tremors: 2 Anxiety: 2 Agitation: 2 Paroxysmal Sweats: 1-Minimal Palms Moist Orientation: 0-Oriented Tacttile Disturbances: 1-Very Mild Itch/Numbness Auditory Disturbances: 0-None Visual Disturbances: 0-None Headache: 2-Mild CIWA-Ar Total Score: 12 BHS Progress Note (SOAP) Subjective: alert,irritable,anxious,interrupted sleep,tremor,pain in the body and back Objective: 03/22/20 10:46 Vital Signs Temperature 97.1 F L 03/22/20 08:48 Pulse Rate 71 03/22/20 08:48 Respiratory Rate 16 03/22/20 08:48 Blood Pressure 132/76 03/22/20 08:48 O2 Sat by Pulse Oximetry (%) 99 03/22/20 08:48 Laboratory Last Values WBC 5.3 K/mm3 (4.0-10.0) 03/22/20 08:00 RBC 4.19 M/mm3 (4.00-5.60) 03/22/20 08:00 Hgb 11.1 GM/dL (11.7-16.9) L 03/22/20 08:00 Hct 34.8 % (35.4-49) L 03/22/20 08:00 MCV 83.2 fl (80-96) 03/22/20 08:00 MCH 26.6 pg (25.7-33.7) 03/22/20 08:00 MCHC 31.9 g/dl (32.0-35.9) L 03/22/20 08:00 RDW 15.1 % (11.9-15.9) 03/22/20 08:00 Plt Count 243 K/MM3 (134-434) 03/22/20 08:00 MPV 8.3 fl (7.5-11.1) 03/22/20 08:00 Sodium 143 mmol/L (136-145) 03/22/20 08:00 Potassium 3.8 mmol/L (3.5-5.1) 03/22/20 08:00 Chloride 109 mmol/L (98-107) H 03/22/20 08:00 Carbon Dioxide 29 mmol/L (21-32) 03/22/20 08:00 Anion Gap 5 MMOL/L (8-16) L 03/22/20 08:00 BUN 9.2 mg/dL (7-18) 03/22/20 08:00 Creatinine 0.9 mg/dL (0.55-1.3) 03/22/20 08:00 Est GFR (CKD-EPI)AfAm 122.52 03/22/20 08:00 Est GFR (CKD-EPI)NonAf 105.71 03/22/20 08:00 POC Glucometer 143 UNITS (80-120) 03/22/20 06:31 Random Glucose 130 mg/dL (74-106) H 03/22/20 08:00 Calcium 8.3 mg/dL (8.5-10.1) L 03/22/20 08:00 Total Bilirubin 0.2 mg/dL (0.2-1) 03/22/20 08:00 AST 10 U/L (15-37) L 03/22/20 08:00 ALT 13 U/L (13-61) 03/22/20 08:00 Alkaline Phosphatase 63 U/L (45-117) 03/22/20 08:00 Total Protein 7.0 g/dl (6.4-8.2) 03/22/20 08:00 Albumin 3.2 g/dl (3.4-5.0) L 03/22/20 08:00 Assessment: 03/22/20 10:47 withdrawal symptom Plan: continue detox ,librium regimen,fluid,bgm monitoring with metformin 500 mgs po bid acDr Vincent consultation appreciated
[2020-03-22 10:20] LABS: HEMATOCRIT 34.8 % (35.4-49); HEMOGLOBIN 11.1 GM/dL (11.7-16.9); MCH 26.6 pg (25.7-33.7); MCHC 31.9 g/dl (32.0-35.9); MEAN CELL VOLUME 83.2 fl (80-96); MEAN PLT VOLUME 8.3 fl (7.5-11.1); PLATELET COUNT 243 K/MM3 (134-434); RBC 4.19 M/mm3 (4.00-5.60); RDW 15.1 % (11.9-15.9); WHITE BLOOD COUNT 5.3 K/mm3 (4.0-10.0)
[2020-03-22 10:26] LABS: ALBUMIN 3.2 g/dl (3.4-5.0); BILIRUBIN,TOTAL 0.2 mg/dL (0.2-1); BLOOD UREA NITROGEN 9.2 mg/dL (7-18); CALCIUM 8.3 mg/dL (8.5-10.1); CREATININE 0.9 mg/dL (0.55-1.3); POTASSIUM 3.8 mmol/L (3.5-5.1)
[2020-03-22] MEDS: NICOTINE 14 MG/24 HOURS TOPICAL PATCH TD SCH (11:26)
[2020-03-22] MEDS: PRENATAL VITAMINS W/ FOLIC ACID TABLET (FP) PO SCH (11:28)
[2020-03-22] MEDS ORDERED: QUEtiapine FUMARATE 100 MG TABLET (FP) PO SCH (22:00)
[2020-03-22] MEDS: MELATONIN 5 MG TABLETS PO SCH (23:46)
[2020-03-22] MEDS: THIAMINE HCL 100 MG TABLET (FP) PO SCH (23:47)
[2020-03-23] MEDS: IBUPROFEN 400 MG TABLET (FP) PO PRN ×2 (00:53→18:18)
[2020-03-23] MEDS: hydrOXYzine PAMOATE 25 MG CAPSULE (FP) PO SCH ×2 (06:50→10:54)
[2020-03-23] MEDS: chlordiazePOXIDE HCL 25 MG CAPSULE PO SCH ×4 (06:50→23:58)
[2020-03-23] MEDS: metFORMIN HCL 500 MG TABLET (FP) PO SCH ×2 (06:50→18:18)
[2020-03-23] MEDS: INSULIN SLIDING SCALE (NOVOLOG) 1 VIAL SQ SCH ×2 (06:52→11:51)
--- NOTE | 2020-03-23 09:21 | PN ---
[facility] CIWA - CIWA Score Nausea/Vomitin-Mild Nausea/No Vomiting Muscle Tremors: 2 Anxiety: 2 Agitation: 2 Paroxysmal Sweats: No Perspiration Orientation: 0-Oriented Tacttile Disturbances: 1-Very Mild Itch/Numbness Auditory Disturbances: 0-None Visual Disturbances: 0-None Headache: 1-Very Mild CIWA-Ar Total Score: 9 S Progress Note (SOAP) Subjective: alert,irritable,anxious,interrupted sleep,aching pain,interrupted sleep, Objective: 03/23/20 12:01 Vital Signs Temperature 97.1 F L 03/23/20 08:25 Pulse Rate 59 L 03/23/20 08:25 Respiratory Rate 18 03/23/20 08:25 Blood Pressure 134/84 03/23/20 08:25 O2 Sat by Pulse Oximetry (%) 96 03/23/20 08:25 03/23/20 12:02 Laboratory Last Values WBC 5.3 K/mm3 (4.0-10.0) 03/22/20 08:00 RBC 4.19 M/mm3 (4.00-5.60) 03/22/20 08:00 Hgb 11.1 GM/dL (11.7-16.9) L 03/22/20 08:00 Hct 34.8 % (35.4-49) L 03/22/20 08:00 MCV 83.2 fl (80-96) 03/22/20 08:00 MCH 26.6 pg (25.7-33.7) 03/22/20 08:00 MCHC 31.9 g/dl (32.0-35.9) L 03/22/20 08:00 RDW 15.1 % (11.9-15.9) 03/22/20 08:00 Plt Count 243 K/MM3 (134-434) 03/22/20 08:00 MPV 8.3 fl (7.5-11.1) 03/22/20 08:00 Sodium 143 mmol/L (136-145) 03/22/20 08:00 Potassium 3.8 mmol/L (3.5-5.1) 03/22/20 08:00 Chloride 109 mmol/L (98-107) H 03/22/20 08:00 Carbon Dioxide 29 mmol/L (21-32) 03/22/20 08:00 Anion Gap 5 MMOL/L (8-16) L 03/22/20 08:00 BUN 9.2 mg/dL (7-18) 03/22/20 08:00 Creatinine 0.9 mg/dL (0.55-1.3) 03/22/20 08:00 Est GFR (CKD-EPI)AfAm 122.52 03/22/20 08:00 Est GFR (CKD-EPI)NonAf 105.71 03/22/20 08:00 POC Glucometer 157 UNITS (80-120) 03/23/20 10:52 Random Glucose 130 mg/dL (74-106) H 03/22/20 08:00 Calcium 8.3 mg/dL (8.5-10.1) L 03/22/20 08:00 Total Bilirubin 0.2 mg/dL (0.2-1) 03/22/20 08:00 AST 10 U/L (15-37) L 03/22/20 08:00 ALT 13 U/L (13-61) 03/22/20 08:00 Alkaline Phosphatase 63 U/L (45-117) 03/22/20 08:00 Total Protein 7.0 g/dl (6.4-8.2) 03/22/20 08:00 Albumin 3.2 g/dl (3.4-5.0) L 03/22/20 08:00 Syphilis Serology Non-reactive (NONREACTIVE) 03/22/20 08:00 COVID-19 (EMELINA) Not detected (Not Detected) 03/21/20 17:40 Assessment: 03/23/20 12:11 withdrawal symptom,continue detox librium regimen,change bgm to bidac,continue metfomin 500 mgs po bidac 03/23/20 12:14 Plan: continue detox librium regimen
[2020-03-23] MEDS: PRENATAL VITAMINS W/ FOLIC ACID TABLET (FP) PO SCH (10:54)
[2020-03-23] MEDS: NICOTINE 14 MG/24 HOURS TOPICAL PATCH TD SCH (10:54)
[2020-03-23] MEDS ORDERED: hydrOXYzine PAMOATE 25 MG CAPSULE (FP) PO PRN (11:56)
[2020-03-23] MEDS ORDERED: QUEtiapine FUMARATE 200 MG TABLET PO SCH (22:00)
[2020-03-23 22:28] VITALS: BP 152/87; PULSE 53; TEMP 97.7
[2020-03-23] MEDS: MELATONIN 5 MG TABLETS PO SCH (23:58)
[2020-03-23] MEDS: THIAMINE HCL 100 MG TABLET (FP) PO SCH (23:59)
[2020-03-24] MEDS ORDERED: chlordiazePOXIDE HCL 10 MG CAPSULE PO PRN
[2020-03-24] MEDS: IBUPROFEN 400 MG TABLET (FP) PO PRN (06:23)
[2020-03-24] MEDS: chlordiazePOXIDE HCL 10 MG CAPSULE PO SCH ×2 (06:23→07:45)
[2020-03-24] MEDS: metFORMIN HCL 500 MG TABLET (FP) PO SCH (06:23)
[2020-03-25] MEDS ORDERED: chlordiazePOXIDE HCL 10 MG CAPSULE PO SCH (05:00)
[2020-03-26] MEDS ORDERED: chlordiazePOXIDE HCL 10 MG CAPSULE PO ONE (05:00)
== END 2020-03-24 08:56 | disposition home or self-care (01) | DRG 774 ==
LOC: YASAS 14:41 → Y6N 17:23
PROVIDERS: ADMIT Allergy & Immunology; ATTEND Allergy & Immunology
PROC: HZ2ZZZZ Detoxification Services for Substance Abuse Treatment (ICD-10-PCS; principal; 2020-03-21)
DX: F10.230 Alcohol dependence with withdrawal, uncomplicated (principal); F14.20 Cocaine dependence, uncomplicated; F13.20 Sedative, hypnotic or anxiolytic dependence, uncomplicated; F12.20 Cannabis dependence, uncomplicated; F17.210 Nicotine dependence, cigarettes, uncomplicated; F19.282 Other psychoactive substance dependence with psychoactive substance-induced sleep disorder; F19.24 Other psychoactive substance dependence with psychoactive substance-induced mood disorder; F20.9 Schizophrenia, unspecified; F41.9 Anxiety disorder, unspecified; F31.9 Bipolar disorder, unspecified; I10 Essential (primary) hypertension; E11.9 Type 2 diabetes mellitus without complications; Z79.84 Long term (current) use of oral hypoglycemic drugs; Z86.69 Personal history of other diseases of the nervous system and sense organs; Z86.19 Personal history of other infectious and parasitic diseases; Z91.018 Allergy to other foods; Z91.5 Personal history of self-harm; Z56.0 Unemployment, unspecified; Z59.0 Homelessness
CPT/HCPCS: 36415; 80053; 82962; 85027; 86780; U0003

== ENCOUNTER 2020-07-28 14:00 | Inpatient (IN) | payer OTHER ==
[2020-07-28 16:56] VITALS: BMI 26.4
[2020-07-28] MEDS ORDERED: NICOTINE POLACRILEX 2 MG GUM BUC PRN (18:14)
[2020-07-28] MEDS ORDERED: MAGNESIUM HYDROX 2400MG/30ML ORAL SUSPENSION 30 ML CUP PO PRN (18:14)
[2020-07-28] MEDS ORDERED: ACETAMINOPHEN 325 MG TABLET (FP) PO PRN ×2 (18:14)
[2020-07-28] MEDS ORDERED: MAGNESIUM CITRATE 300 ML BOTTLE PO PRN (18:14)
[2020-07-28] MEDS ORDERED: MENTHOL/PHENOL 1 EACH UD MM PRN (18:14)
[2020-07-28] MEDS ORDERED: MAG HYDROX/AL HYDROX/SIMETH 30 ML UNIT-DOSE CUP PO PRN (18:14)
[2020-07-28] MEDS ORDERED: BISMUTH SUBSALICYLATE 524 MG/30 ML UD PO PRN (18:14)
[2020-07-28] MEDS ORDERED: ONDANSETRON *ODT* 4 MG TABLET SL PRN (18:14)
[2020-07-28] MEDS ORDERED: NALOXONE HCL 0.4 MG/ML VIAL IM PRN (18:17)
[2020-07-28] MEDS ORDERED: cloNIDine HCL 0.1 MG TABLET PO PRN (18:17)
[2020-07-28] MEDS ORDERED: METHADONE HCL 10 MG TABLET (FOR DETOX USE ONLY) PO ONE (19:00)
[2020-07-28] MEDS ORDERED: QUEtiapine FUMARATE 100 MG TABLET (FP) PO PRN (22:00)
[2020-07-28] MEDS: MELATONIN 5 MG TABLETS PO SCH (22:56)
[2020-07-28] MEDS: hydrOXYzine PAMOATE 25 MG CAPSULE (FP) PO SCH (22:57)
[2020-07-28] MEDS: THIAMINE HCL 100 MG TABLET (FP) PO SCH (22:57)
[2020-07-29] MEDS: hydrOXYzine PAMOATE 25 MG CAPSULE (FP) PO SCH ×5 (06:55→21:47)
[2020-07-29] MEDS: metFORMIN HCL 500 MG TABLET (FP) PO SCH ×2 (06:55→17:29)
[2020-07-29] MEDS ORDERED: METHADONE HCL 5 MG TABLET (FOR DETOX USE ONLY) ONE (08:56)
[2020-07-29] MEDS ORDERED: METHADONE HCL 10 MG TABLET (FOR DETOX USE ONLY) ONE (08:57)
[2020-07-29] MEDS ORDERED: METHADONE (DETOX) 20 MG, METHADONE (DETOX) 5 MG PO ONE (10:00)
[2020-07-29] MEDS: PRENATAL VITAMINS W/ FOLIC ACID TABLET (FP) PO SCH (10:24)
[2020-07-29 12:34] LABS: HEMATOCRIT 34.4 % (35.4-49); HEMOGLOBIN 11.2 GM/dL (11.7-16.9); MCH 27.9 pg (25.7-33.7); MCHC 32.6 g/dl (32.0-35.9); MEAN CELL VOLUME 85.5 fl (80-96); MEAN PLT VOLUME 8.4 fl (7.5-11.1); PLATELET COUNT 308 K/MM3 (134-434); RBC 4.02 M/mm3 (4.00-5.60); RDW 15.7 % (11.9-15.9)
[2020-07-29 12:36] LABS: POTASSIUM 4.1 mmol/L (3.5-5.1)
[2020-07-29 12:43] LABS: ALBUMIN 3.3 g/dl (3.4-5.0); BLOOD UREA NITROGEN 9.3 mg/dL (7-18); CALCIUM 7.9 mg/dL (8.5-10.1)
[2020-07-29 12:48] LABS: BILIRUBIN,TOTAL 0.7 mg/dL (0.2-1); TOT PROT 6.8 g/dl (6.4-8.2)
[2020-07-29] MEDS: diazePAM 5 MG TABLET PO PRN (15:12)
[2020-07-29] MEDS: MELATONIN 5 MG TABLETS PO SCH (21:47)
[2020-07-29] MEDS: THIAMINE HCL 100 MG TABLET (FP) PO SCH (21:47)
[2020-07-29] MEDS: QUEtiapine FUMARATE 100 MG TABLET (FP) PO SCH (21:47)
[2020-07-30] MEDS: hydrOXYzine PAMOATE 25 MG CAPSULE (FP) PO SCH ×5 (06:52→22:16)
[2020-07-30] MEDS: metFORMIN HCL 500 MG TABLET (FP) PO SCH ×2 (07:52→17:03)
[2020-07-30] MEDS ORDERED: METHADONE HCL 10 MG TABLET (FOR DETOX USE ONLY) PO ONE (10:00)
[2020-07-30] MEDS: PRENATAL VITAMINS W/ FOLIC ACID TABLET (FP) PO SCH (10:49)
[2020-07-30] MEDS: diazePAM 5 MG TABLET PO PRN ×2 (13:58→18:16)
[2020-07-30] MEDS: CALCIUM 500MG/VIT-D 200 UNITS COMBO TABLET (FP) PO SCH ×2 (15:29→22:16)
[2020-07-30] MEDS: METHOCARBAMOL 500 MG TABLET PO PRN (18:15)
[2020-07-30] MEDS: MELATONIN 5 MG TABLETS PO SCH (22:16)
[2020-07-30] MEDS: QUEtiapine FUMARATE 100 MG TABLET (FP) PO SCH (22:16)
[2020-07-30] MEDS: THIAMINE HCL 100 MG TABLET (FP) PO SCH (22:16)
[2020-07-31] MEDS: hydrOXYzine PAMOATE 25 MG CAPSULE (FP) PO SCH ×5 (06:25→22:48)
[2020-07-31] MEDS: metFORMIN HCL 500 MG TABLET (FP) PO SCH ×2 (07:25→18:16)
[2020-07-31] MEDS ORDERED: METHADONE HCL 10 MG TABLET (FOR DETOX USE ONLY) ONE (08:50)
[2020-07-31] MEDS ORDERED: METHADONE HCL 5 MG TABLET (FOR DETOX USE ONLY) ONE (08:50)
[2020-07-31] MEDS ORDERED: METHADONE (DETOX) 10 MG, METHADONE (DETOX) 5 MG PO ONE (10:00)
[2020-07-31] MEDS: CALCIUM 500MG/VIT-D 200 UNITS COMBO TABLET (FP) PO SCH ×2 (10:55→22:47)
[2020-07-31] MEDS: PRENATAL VITAMINS W/ FOLIC ACID TABLET (FP) PO SCH (10:55)
[2020-07-31] MEDS: THIAMINE HCL 100 MG TABLET (FP) PO SCH (22:47)
[2020-07-31] MEDS: MELATONIN 5 MG TABLETS PO SCH (22:47)
[2020-07-31] MEDS: QUEtiapine FUMARATE 100 MG TABLET (FP) PO SCH (22:48)
[2020-07-31] MEDS: METHOCARBAMOL 500 MG TABLET PO PRN (23:12)
[2020-08-01] MEDS: IBUPROFEN 400 MG TABLET (FP) PO PRN ×2 (07:59→17:18)
[2020-08-01] MEDS: hydrOXYzine PAMOATE 25 MG CAPSULE (FP) PO SCH ×5 (08:01→21:54)
[2020-08-01] MEDS: metFORMIN HCL 500 MG TABLET (FP) PO SCH ×2 (08:05→17:21)
[2020-08-01] MEDS ORDERED: METHADONE HCL 10 MG TABLET (FOR DETOX USE ONLY) PO ONE (10:00)
[2020-08-01] MEDS: CALCIUM 500MG/VIT-D 200 UNITS COMBO TABLET (FP) PO SCH ×2 (10:30→21:54)
[2020-08-01] MEDS: PRENATAL VITAMINS W/ FOLIC ACID TABLET (FP) PO SCH (10:30)
[2020-08-01] MEDS: METHOCARBAMOL 500 MG TABLET PO PRN (17:18)
[2020-08-01] MEDS: QUEtiapine FUMARATE 100 MG TABLET (FP) PO SCH (21:54)
[2020-08-01] MEDS: THIAMINE HCL 100 MG TABLET (FP) PO SCH (21:54)
[2020-08-01] MEDS: MELATONIN 5 MG TABLETS PO SCH (22:55)
[2020-08-02] MEDS ORDERED: METHADONE HCL 5 MG TABLET (FOR DETOX USE ONLY) PO ONE (06:00)
[2020-08-02] MEDS: metFORMIN HCL 500 MG TABLET (FP) PO SCH ×2 (07:17→17:36)
[2020-08-02] MEDS: hydrOXYzine PAMOATE 25 MG CAPSULE (FP) PO SCH ×5 (07:18→22:27)
[2020-08-02] MEDS: CALCIUM 500MG/VIT-D 200 UNITS COMBO TABLET (FP) PO SCH ×2 (09:38→22:27)
[2020-08-02] MEDS: PRENATAL VITAMINS W/ FOLIC ACID TABLET (FP) PO SCH (09:39)
[2020-08-02] MEDS: METHOCARBAMOL 500 MG TABLET PO PRN (15:37)
[2020-08-02] MEDS: IBUPROFEN 400 MG TABLET (FP) PO PRN (15:37)
[2020-08-02] MEDS: LIDOCAINE 5% TOPICAL PATCH TP SCH (20:38)
[2020-08-02] MEDS: QUEtiapine FUMARATE 100 MG TABLET (FP) PO SCH (22:27)
[2020-08-02] MEDS: THIAMINE HCL 100 MG TABLET (FP) PO SCH (22:27)
[2020-08-02] MEDS: MELATONIN 5 MG TABLETS PO SCH (22:27)
[2020-08-03] MEDS: hydrOXYzine PAMOATE 25 MG CAPSULE (FP) PO SCH ×2 (06:34→10:26)
[2020-08-03] MEDS: metFORMIN HCL 500 MG TABLET (FP) PO SCH (06:34)
[2020-08-03] MEDS ORDERED: LIDOCAINE PATCH REMOVAL MC SCH (07:30)
[2020-08-03 09:15] VITALS: BP 117/83; PULSE 107; TEMP 97.3
[2020-08-03] MEDS: LIDOCAINE 5% TOPICAL PATCH TP SCH (09:47)
[2020-08-03] MEDS: CALCIUM 500MG/VIT-D 200 UNITS COMBO TABLET (FP) PO SCH (10:25)
[2020-08-03] MEDS: PRENATAL VITAMINS W/ FOLIC ACID TABLET (FP) PO SCH (10:25)
== END 2020-08-03 12:03 | disposition home or self-care (01) | DRG 773 ==
LOC: YASAS 14:00 → Y6N 16:54
PROVIDERS: ADMIT Allergy & Immunology; ATTEND Allergy & Immunology
PROC: HZ2ZZZZ Detoxification Services for Substance Abuse Treatment (ICD-10-PCS; principal; 2020-07-28)
DX: F11.23 Opioid dependence with withdrawal (principal); F10.230 Alcohol dependence with withdrawal, uncomplicated; F10.232 Alcohol dependence with withdrawal with perceptual disturbance; F14.20 Cocaine dependence, uncomplicated; F17.210 Nicotine dependence, cigarettes, uncomplicated; F19.282 Other psychoactive substance dependence with psychoactive substance-induced sleep disorder; F19.24 Other psychoactive substance dependence with psychoactive substance-induced mood disorder; F20.9 Schizophrenia, unspecified; F90.9 Attention-deficit hyperactivity disorder, unspecified type; D64.9 Anemia, unspecified; I10 Essential (primary) hypertension; E11.9 Type 2 diabetes mellitus without complications; Z79.84 Long term (current) use of oral hypoglycemic drugs; Z86.69 Personal history of other diseases of the nervous system and sense organs; Z86.19 Personal history of other infectious and parasitic diseases; Z59.0 Homelessness; Z56.0 Unemployment, unspecified; Z91.018 Allergy to other foods
CPT/HCPCS: 36415; 80053; 82962; 85027; 86780; C9803; J0735; U0003

== ENCOUNTER 2020-08-16 19:05 | Inpatient (IN) | payer OTHER ==
[2020-08-17] MEDS ORDERED: ACETAMINOPHEN 325 MG TABLET (FP) PO PRN (01:15)
[2020-08-17] MEDS ORDERED: IBUPROFEN 400 MG TABLET (FP) PO PRN (01:15)
[2020-08-17] MEDS ORDERED: MAG HYDROX/AL HYDROX/SIMETH 30 ML UNIT-DOSE CUP PO PRN (01:15)
[2020-08-17] MEDS ORDERED: P-EPHED 60MG/TRIPROLIDI 2.5MG TABLET PO PRN (01:15)
[2020-08-17] MEDS ORDERED: LOPERAMIDE HCL 2 MG CAPSULE PO PRN (01:15)
[2020-08-17] MEDS ORDERED: MAGNESIUM HYDROX 2400MG/30ML ORAL SUSPENSION 30 ML CUP PO PRN (01:15)
[2020-08-17] MEDS ORDERED: MAGNESIUM CITRATE 300 ML BOTTLE PO PRN (01:15)
[2020-08-17] MEDS ORDERED: guaiFENesin 200 MG/10 ML 10 ML UNIT-DOSE CUPS PO PRN (01:15)
[2020-08-17] MEDS ORDERED: NICOTINE POLACRILEX 2 MG GUM BC PRN (01:15)
[2020-08-17] MEDS ORDERED: TUBERCULIN PPD 5 TU/0.1ML VIAL ID ONE (01:36)
[2020-08-17] MEDS: PRENATAL VITAMINS W/ FOLIC ACID TABLET (FP) PO SCH (10:02)
[2020-08-17] MEDS: NICOTINE 14 MG/24 HOURS TOPICAL PATCH TD SCH (10:02)
[2020-08-17 11:25] LABS: URINE APPEARANCE CLEAR; URINE BILIRUBIN NEGATIVE (NEGATIVE); URINE COLOR YELLOW; URINE GLUCOSE (UA) 2+ (NEGATIVE); URINE KETONE NEGATIVE (NEGATIVE); URINE LEUK ESTERASE NEGATIVE (NEGATIVE); URINE NITRITE NEGATIVE (NEGATIVE); URINE PROTEIN NEGATIVE (NEGATIVE); URINE UROBILINOGEN 0.2 mg/dL (0.2-1.0)
[2020-08-17] MEDS ORDERED: QUEtiapine FUMARATE 200 MG TABLET PO SCH ×2 (20:00→22:00)
[2020-08-17 20:25] VITALS: TEMP 97.9
[2020-08-17] MEDS ORDERED: THIAMINE HCL 100 MG TABLET (FP) PO SCH (22:00)
[2020-08-17] MEDS ORDERED: MELATONIN 5 MG TABLETS PO SCH (22:00)
[2020-08-18 07:18] VITALS: BP 143/85; PULSE 75
[2020-08-18] MEDS: NICOTINE 14 MG/24 HOURS TOPICAL PATCH TD SCH (10:33)
[2020-08-18] MEDS: PRENATAL VITAMINS W/ FOLIC ACID TABLET (FP) PO SCH (10:33)
[2020-08-18] MEDS ORDERED: IBUPROFEN 600 MG TABLET (FP) PO PRN (11:43)
[2020-08-18] MEDS ORDERED: LIDOCAINE 5% TOPICAL PATCH TP SCH (11:45)
[2020-08-18] MEDS ORDERED: LIDOCAINE PATCH REMOVAL MC SCH (22:00)
== END 2020-08-18 13:30 | disposition left against medical advice (07) | DRG 770 ==
LOC: YASAS 19:05 → Y3W 08-17 01:18
PROVIDERS: ADMIT Allergy & Immunology; ATTEND Allergy & Immunology
PROC: HZ42ZZZ Group Counseling for Substance Abuse Treatment, Cognitive-Behavioral (ICD-10-PCS; principal; 2020-08-17)
DX: F10.20 Alcohol dependence, uncomplicated (principal); F14.20 Cocaine dependence, uncomplicated; F12.20 Cannabis dependence, uncomplicated; F17.210 Nicotine dependence, cigarettes, uncomplicated; F10.280 Alcohol dependence with alcohol-induced anxiety disorder; F10.282 Alcohol dependence with alcohol-induced sleep disorder; F20.9 Schizophrenia, unspecified; F31.9 Bipolar disorder, unspecified; F90.9 Attention-deficit hyperactivity disorder, unspecified type; E11.9 Type 2 diabetes mellitus without complications; Z79.84 Long term (current) use of oral hypoglycemic drugs; I10 Essential (primary) hypertension; L85.3 Xerosis cutis; Z56.0 Unemployment, unspecified; Z59.0 Homelessness; Z91.018 Allergy to other foods
CPT/HCPCS: 81003; 82962; 93005; 93010; C9803; U0003

== ENCOUNTER 2020-09-24 13:34 | Inpatient (IN) | payer OTHER ==
[2020-09-24 14:43] VITALS: BMI 23.7
[2020-09-24] MEDS ORDERED: guaiFENesin 200 MG/10 ML 10 ML UNIT-DOSE CUPS PO PRN (19:06)
[2020-09-24] MEDS ORDERED: MAGNESIUM HYDROX 2400MG/30ML ORAL SUSPENSION 30 ML CUP PO PRN (19:06)
[2020-09-24] MEDS ORDERED: IBUPROFEN 400 MG TABLET (FP) PO PRN (19:06)
[2020-09-24] MEDS ORDERED: MAGNESIUM CITRATE 300 ML BOTTLE PO PRN (19:06)
[2020-09-24] MEDS ORDERED: P-EPHED 60MG/TRIPROLIDI 2.5MG TABLET PO PRN (19:06)
[2020-09-24] MEDS ORDERED: ACETAMINOPHEN 325 MG TABLET (FP) PO PRN (19:06)
[2020-09-24] MEDS ORDERED: NICOTINE POLACRILEX 2 MG GUM BC PRN (19:06)
[2020-09-24] MEDS ORDERED: MAG HYDROX/AL HYDROX/SIMETH 30 ML UNIT-DOSE CUP PO PRN (19:06)
[2020-09-24] MEDS ORDERED: LOPERAMIDE HCL 2 MG CAPSULE PO PRN (19:06)
[2020-09-24] MEDS ORDERED: TUBERCULIN PPD 5 TU/0.1ML VIAL ID ONE (20:03)
[2020-09-24] MEDS: THIAMINE HCL 100 MG TABLET (FP) PO SCH (22:28)
[2020-09-24] MEDS: MELATONIN 5 MG TABLETS PO SCH (22:28)
[2020-09-25] MEDS: metFORMIN HCL 500 MG TABLET (FP) PO SCH ×2 (07:49→17:37)
[2020-09-25] MEDS: PRENATAL VITAMINS W/ FOLIC ACID TABLET (FP) PO SCH (10:06)
[2020-09-25 11:45] LABS: POTASSIUM 3.9 mmol/L (3.5-5.1)
[2020-09-25 11:47] LABS: CALCIUM 7.4 mg/dL (8.5-10.1)
[2020-09-25 11:48] LABS: ALBUMIN 3.2 g/dl (3.4-5.0); BLOOD UREA NITROGEN 9.4 mg/dL (7-18)
[2020-09-25 11:51] LABS: CREATININE 1.1 mg/dL (0.55-1.3); HEMATOCRIT 32.6 % (35.4-49); HEMOGLOBIN 10.8 GM/dL (11.7-16.9); MCH 27.9 pg (25.7-33.7); MEAN CELL VOLUME 84.5 fl (80-96); MEAN PLT VOLUME 8.4 fl (7.5-11.1); PLATELET COUNT 310 K/MM3 (134-434); RBC 3.86 M/mm3 (4.00-5.60); RDW 16.3 % (11.9-15.9); WHITE BLOOD COUNT 5.3 K/mm3 (4.0-10.0)
[2020-09-25 11:52] LABS: BILIRUBIN,TOTAL 0.2 mg/dL (0.2-1); TOT PROT 6.7 g/dl (6.4-8.2)
[2020-09-25] MEDS: QUEtiapine FUMARATE 100 MG TABLET (FP) PO SCH (21:44)
[2020-09-25] MEDS: MELATONIN 5 MG TABLETS PO SCH (21:44)
[2020-09-25] MEDS: THIAMINE HCL 100 MG TABLET (FP) PO SCH (21:44)
[2020-09-25] MEDS ORDERED: QUEtiapine FUMARATE 100 MG TABLET (FP) PO SCH (22:00)
[2020-09-26] MEDS: metFORMIN HCL 500 MG TABLET (FP) PO SCH ×2 (07:40→16:43)
[2020-09-26] MEDS: PRENATAL VITAMINS W/ FOLIC ACID TABLET (FP) PO SCH (11:58)
[2020-09-26] MEDS: hydrOXYzine PAMOATE 25 MG CAPSULE (FP) PO PRN (13:32)
[2020-09-26] MEDS: LISINOPRIL 10 MG TABLET PO SCH (13:32)
[2020-09-26] MEDS: MELATONIN 5 MG TABLETS PO SCH (21:32)
[2020-09-26] MEDS: THIAMINE HCL 100 MG TABLET (FP) PO SCH (21:32)
[2020-09-26] MEDS: QUEtiapine FUMARATE 100 MG TABLET (FP) PO SCH (21:33)
[2020-09-27] MEDS: metFORMIN HCL 500 MG TABLET (FP) PO SCH ×2 (07:58→16:25)
[2020-09-27] MEDS: LISINOPRIL 10 MG TABLET PO SCH (10:06)
[2020-09-27] MEDS: PRENATAL VITAMINS W/ FOLIC ACID TABLET (FP) PO SCH (10:06)
[2020-09-27 13:11] LABS: URINE APPEARANCE CLEAR; URINE BILIRUBIN NEGATIVE (NEGATIVE); URINE COLOR YELLOW; URINE GLUCOSE (UA) NEGATIVE (NEGATIVE); URINE KETONE NEGATIVE (NEGATIVE); URINE LEUK ESTERASE NEGATIVE (NEGATIVE); URINE NITRITE NEGATIVE (NEGATIVE); URINE PROTEIN NEGATIVE (NEGATIVE); URINE UROBILINOGEN 0.2 mg/dL (0.2-1.0)
[2020-09-27] MEDS: MELATONIN 5 MG TABLETS PO SCH (20:59)
[2020-09-27] MEDS: THIAMINE HCL 100 MG TABLET (FP) PO SCH (20:59)
[2020-09-27] MEDS: QUEtiapine FUMARATE 100 MG TABLET (FP) PO SCH (21:00)
[2020-09-28] MEDS: metFORMIN HCL 500 MG TABLET (FP) PO SCH ×2 (06:53→16:46)
[2020-09-28] MEDS: PRENATAL VITAMINS W/ FOLIC ACID TABLET (FP) PO SCH (09:18)
[2020-09-28] MEDS: LISINOPRIL 10 MG TABLET PO SCH (09:18)
[2020-09-28] MEDS: MELATONIN 5 MG TABLETS PO SCH (21:05)
[2020-09-28] MEDS: QUEtiapine FUMARATE 100 MG TABLET (FP) PO SCH (21:05)
[2020-09-28] MEDS: THIAMINE HCL 100 MG TABLET (FP) PO SCH (21:05)
[2020-09-29] MEDS: metFORMIN HCL 500 MG TABLET (FP) PO SCH ×2 (06:50→16:26)
[2020-09-29] MEDS: LISINOPRIL 10 MG TABLET PO SCH (09:59)
[2020-09-29] MEDS: PRENATAL VITAMINS W/ FOLIC ACID TABLET (FP) PO SCH (10:00)
[2020-09-29] MEDS: THIAMINE HCL 100 MG TABLET (FP) PO SCH (21:01)
[2020-09-29] MEDS: MELATONIN 5 MG TABLETS PO SCH (21:01)
[2020-09-29] MEDS: QUEtiapine FUMARATE 100 MG TABLET (FP) PO SCH (21:02)
[2020-09-30] MEDS: metFORMIN HCL 500 MG TABLET (FP) PO SCH ×2 (07:26→16:45)
[2020-09-30] MEDS: LISINOPRIL 10 MG TABLET PO SCH (10:16)
[2020-09-30] MEDS: PRENATAL VITAMINS W/ FOLIC ACID TABLET (FP) PO SCH (10:16)
[2020-09-30] MEDS: hydrOXYzine PAMOATE 25 MG CAPSULE (FP) PO PRN ×2 (15:45→21:09)
[2020-09-30] MEDS: THIAMINE HCL 100 MG TABLET (FP) PO SCH (21:09)
[2020-09-30] MEDS: QUEtiapine FUMARATE 100 MG TABLET (FP) PO SCH (21:09)
[2020-09-30] MEDS: MELATONIN 5 MG TABLETS PO SCH (21:09)
[2020-10-01] MEDS: metFORMIN HCL 500 MG TABLET (FP) PO SCH ×2 (07:52→16:50)
[2020-10-01] MEDS: PRENATAL VITAMINS W/ FOLIC ACID TABLET (FP) PO SCH (09:42)
[2020-10-01] MEDS: LISINOPRIL 10 MG TABLET PO SCH (09:42)
[2020-10-01] MEDS: hydrOXYzine PAMOATE 25 MG CAPSULE (FP) PO PRN ×2 (14:38→21:11)
[2020-10-01] MEDS: QUEtiapine FUMARATE 100 MG TABLET (FP) PO SCH (21:09)
[2020-10-01] MEDS: MELATONIN 5 MG TABLETS PO SCH (21:09)
[2020-10-01] MEDS: THIAMINE HCL 100 MG TABLET (FP) PO SCH (21:09)
[2020-10-02] MEDS: metFORMIN HCL 500 MG TABLET (FP) PO SCH (06:47)
[2020-10-02 07:12] VITALS: TEMP 97.3
[2020-10-02 08:50] VITALS: BP 139/83; PULSE 80
[2020-10-02] MEDS: LISINOPRIL 10 MG TABLET PO SCH (09:31)
[2020-10-02] MEDS: PRENATAL VITAMINS W/ FOLIC ACID TABLET (FP) PO SCH (09:32)
[2020-10-02] MEDS: hydrOXYzine PAMOATE 25 MG CAPSULE (FP) PO PRN (11:59)
[2020-10-02] MEDS ORDERED: MASKS NR ONE (14:13)
== END 2020-10-02 15:11 | disposition home or self-care (01) | DRG 772 ==
LOC: YASAS 13:34 → Y3E 19:08
PROVIDERS: ADMIT Allergy & Immunology; ATTEND Allergy & Immunology
PROC: HZ42ZZZ Group Counseling for Substance Abuse Treatment, Cognitive-Behavioral (ICD-10-PCS; principal; 2020-09-24)
DX: F10.20 Alcohol dependence, uncomplicated (principal); F13.20 Sedative, hypnotic or anxiolytic dependence, uncomplicated; F14.20 Cocaine dependence, uncomplicated; F17.210 Nicotine dependence, cigarettes, uncomplicated; F10.280 Alcohol dependence with alcohol-induced anxiety disorder; F20.9 Schizophrenia, unspecified; F31.9 Bipolar disorder, unspecified; F10.282 Alcohol dependence with alcohol-induced sleep disorder; F19.24 Other psychoactive substance dependence with psychoactive substance-induced mood disorder; F41.9 Anxiety disorder, unspecified; D64.9 Anemia, unspecified; M17.12 Unilateral primary osteoarthritis, left knee; I10 Essential (primary) hypertension; E11.9 Type 2 diabetes mellitus without complications; Z79.84 Long term (current) use of oral hypoglycemic drugs; Z86.69 Personal history of other diseases of the nervous system and sense organs; Z56.0 Unemployment, unspecified; Z59.0 Homelessness; Z91.018 Allergy to other foods; Z86.19 Personal history of other infectious and parasitic diseases
CPT/HCPCS: 36415; 80053; 81003; 82962; 85027; 86780; C9803; U0003; U0005

== ENCOUNTER 2021-02-26 09:19 | Inpatient (IN) | payer OTHER ==
[2021-02-26 10:39] VITALS: BMI 27.9
[2021-02-26] MEDS ORDERED: METHOCARBAMOL 500 MG TABLET PO PRN (11:27)
[2021-02-26] MEDS ORDERED: MAGNESIUM CITRATE 300 ML BOTTLE PO PRN (11:27)
[2021-02-26] MEDS ORDERED: MAGNESIUM HYDROX 2400MG/30ML ORAL SUSPENSION 30 ML CUP PO PRN (11:27)
[2021-02-26] MEDS ORDERED: ACETAMINOPHEN 325 MG TABLET (FP) PO PRN ×2 (11:27)
[2021-02-26] MEDS ORDERED: NICOTINE 10 MG CARTRIDGE (INHALER) IH PRN (11:27)
[2021-02-26] MEDS ORDERED: BISMUTH SUBSALICYLATE 524 MG/30 ML PO PRN (11:27)
[2021-02-26] MEDS ORDERED: MAG HYDROX/AL HYDROX/SIMETH 30 ML UNIT-DOSE CUP PO PRN (11:27)
[2021-02-26] MEDS ORDERED: MENTHOL/PHENOL 1 EACH UD MM PRN (11:27)
[2021-02-26] MEDS ORDERED: IBUPROFEN 400 MG TABLET (FP) PO PRN (11:27)
[2021-02-26] MEDS ORDERED: ONDANSETRON *ODT* 4 MG TABLET SL PRN (11:27)
[2021-02-26] MEDS ORDERED: cloNIDine HCL 0.1 MG TABLET PO PRN (11:27)
[2021-02-26] MEDS ORDERED: diazePAM 5 MG TABLET PO PRN (11:33)
[2021-02-26] MEDS ORDERED: methaDONE HCL 10 MG TABLET (FOR DETOX USE ONLY) PO ONE (12:30)
[2021-02-26] MEDS: LISINOPRIL 10 MG TABLET PO SCH (13:16)
[2021-02-26] MEDS: hydrOXYzine PAMOATE 25 MG CAPSULE (FP) PO SCH ×3 (13:17→23:15)
[2021-02-26] MEDS: metFORMIN HCL 500 MG TABLET (FP) PO SCH (17:21)
[2021-02-26] MEDS: MELATONIN 5 MG TABLETS PO SCH (23:15)
[2021-02-26] MEDS: THIAMINE HCL 100 MG TABLET (FP) PO SCH (23:16)
[2021-02-27] MEDS: hydrOXYzine PAMOATE 25 MG CAPSULE (FP) PO SCH ×5 (07:46→22:43)
[2021-02-27] MEDS: metFORMIN HCL 500 MG TABLET (FP) PO SCH ×2 (07:46→18:04)
[2021-02-27] MEDS ORDERED: methaDONE HCL 10 MG TABLET (FOR DETOX USE ONLY) ONE (08:38)
[2021-02-27] MEDS ORDERED: PRENATAL VITAMINS W/ FOLIC ACID TABLET (FP) PO SCH (10:00)
[2021-02-27] MEDS: LISINOPRIL 10 MG TABLET PO SCH (10:41)
[2021-02-27] MEDS ORDERED: QUEtiapine FUMARATE 200 MG TABLET PO SCH (22:00)
[2021-02-27] MEDS: MELATONIN 5 MG TABLETS PO SCH (22:43)
[2021-02-27] MEDS: THIAMINE HCL 100 MG TABLET (FP) PO SCH (22:43)
[2021-02-28] MEDS: hydrOXYzine PAMOATE 25 MG CAPSULE (FP) PO SCH (05:23)
[2021-02-28] MEDS: metFORMIN HCL 500 MG TABLET (FP) PO SCH (06:04)
[2021-02-28 08:58] VITALS: BP 118/77; PULSE 76; TEMP 97.1
[2021-02-28] MEDS ORDERED: methaDONE HCL 10 MG TABLET (FOR DETOX USE ONLY) PO ONE (10:00)
[2021-03-02] MEDS ORDERED: methaDONE HCL 10 MG TABLET (FOR DETOX USE ONLY) PO ONE (10:00)
== END 2021-02-28 09:00 | disposition left against medical advice (07) | DRG 770 ==
LOC: YASAS 09:19 → Y3N 11:20
PROVIDERS: ADMIT Allergy & Immunology; ATTEND Allergy & Immunology
PROC: HZ2ZZZZ Detoxification Services for Substance Abuse Treatment (ICD-10-PCS; principal; 2021-02-26)
DX: F11.23 Opioid dependence with withdrawal (principal); F10.10 Alcohol abuse, uncomplicated; F14.20 Cocaine dependence, uncomplicated; F12.20 Cannabis dependence, uncomplicated; F17.210 Nicotine dependence, cigarettes, uncomplicated; F20.9 Schizophrenia, unspecified; F31.9 Bipolar disorder, unspecified; I10 Essential (primary) hypertension; E11.9 Type 2 diabetes mellitus without complications; M17.12 Unilateral primary osteoarthritis, left knee; Z79.84 Long term (current) use of oral hypoglycemic drugs; Z91.5 Personal history of self-harm; Z87.81 Personal history of (healed) traumatic fracture; Z56.0 Unemployment, unspecified; Z59.0 Homelessness; Z91.018 Allergy to other foods
CPT/HCPCS: 82962; C9803; U0003; U0005

== ENCOUNTER 2023-12-05 14:52 | Inpatient (IN) | payer OTHER ==
[2023-12-05 15:39] VITALS: BMI 24.2
[2023-12-05] MEDS ORDERED: MAGNESIUM HYDROX 2400MG/30ML ORAL SUSPENSION 30 ML CUP PO PRN (18:49)
[2023-12-05] MEDS ORDERED: POLYETHYLENE GLYCOL (HEALTHYLAX) 3350 17 GM PACKET PO PRN (18:49)
[2023-12-05] MEDS ORDERED: NICOTINE POLACRILEX 2 MG LOZENGE BC PRN (18:49)
[2023-12-05] MEDS ORDERED: IBUPROFEN 400 MG TABLET (FP) PO PRN (18:49)
[2023-12-05] MEDS ORDERED: NALOXONE (NARCAN) HCL 4 MG/0.1 ML SPRAY NS PRN (18:49)
[2023-12-05] MEDS ORDERED: NALOXONE HCL 0.4 MG/ML VIAL IM PRN (18:49)
[2023-12-05] MEDS ORDERED: guaiFENesin 600 MG TABLET.ER (FP) PO PRN (18:49)
[2023-12-05] MEDS ORDERED: MAG HYDROX/AL HYDROX/SIMETH 30 ML UNIT-DOSE CUP PO PRN (18:49)
[2023-12-05] MEDS ORDERED: NICOTINE POLACRILEX 2 MG GUM BUC PRN (18:49)
[2023-12-05] MEDS ORDERED: BENZONATATE 200 MG CAPSULE PO PRN (18:49)
[2023-12-05] MEDS ORDERED: LOPERAMIDE HCL 2 MG CAPSULE PO PRN (18:49)
[2023-12-05] MEDS ORDERED: BENZOCAINE/MENTHOL (CHLORASEPTIC ) LOZENGE MM PRN (18:49)
[2023-12-05] MEDS: MELATONIN 5 MG TABLETS PO SCH (22:00)
[2023-12-05] MEDS: THIAMINE 100 MG TABLET PO SCH (22:00)
[2023-12-05 23:00] LABS: URINE APPEARANCE CLEAR; URINE BILIRUBIN NEGATIVE (NEGATIVE); URINE COLOR YELLOW; URINE GLUCOSE (UA) TRACE (NEGATIVE); URINE KETONE NEGATIVE (NEGATIVE); URINE LEUK ESTERASE NEGATIVE (NEGATIVE); URINE NITRITE NEGATIVE (NEGATIVE); URINE PROTEIN TRACE (NEGATIVE)
[2023-12-05] MEDS: TUBERCULIN PPD 5 TU/0.1ML SYRINGE (IN PATIENT USE ONLY) ID ONE (23:07)
[2023-12-06 10:33] LABS: CHLORIDE 109 mmol/L (98-107); POTASSIUM 3.8 mmol/L (3.5-5.1); SODIUM 142 mmol/L (136-145)
[2023-12-06 10:35] LABS: HEMATOCRIT 33.5 % (35.4-49); HEMOGLOBIN 10.9 GM/dL (11.7-16.9); MCHC 32.5 g/dl (32.0-35.9); MEAN CELL VOLUME 83.1 fl (80-96); MEAN PLT VOLUME 7.9 fl (7.5-11.1); PLATELET COUNT 221 10^3/uL (134-434); RBC 4.03 M/mm3 (4.00-5.60); RDW 16.9 % (11.9-15.9); WHITE BLOOD COUNT 5.4 K/mm3 (4.0-10.0)
[2023-12-06 10:43] LABS: BLOOD UREA NITROGEN 10.9 mg/dL (7-18); GLUCOSE,RANDOM 119 mg/dL (74-106)
[2023-12-06 10:45] LABS: ALBUMIN 3.1 g/dl (3.4-5.0)
[2023-12-06 10:46] LABS: CREATININE 0.9 mg/dL (0.55-1.3); SGOT/AST 26 U/L (15-37); SGPT/ALT 44 U/L (13-61)
[2023-12-06 10:47] LABS: BILIRUBIN,TOTAL 0.4 mg/dL (0.2-1)
[2023-12-06 10:48] LABS: ALK PHOS 68 U/L (45-117); ANION GAP 3 mmol/L (4-13); CALCIUM 8.3 mg/dL (8.5-10.1); CO2 30 mmol/L (21-32); TOT PROT 6.4 g/dl (6.4-8.2)
[2023-12-06] MEDS: PRENATAL VITAMINS W/ FOLIC ACID TABLET (FP) PO SCH (10:56)
[2023-12-06 11:57] LABS: SYPHILIS W/ RPR CONF NON-REACTIVE (NONREACTIVE)
[2023-12-06] MEDS: INSULIN ASPART SLIDING SCALE (NOVOLOG) 1 VIAL SQ SCH (18:39)
[2023-12-06] MEDS: IBUPROFEN 600 MG TABLET (FP) PO PRN (19:50)
[2023-12-06] MEDS: QUEtiapine FUMARATE 100 MG TABLET (FP) PO SCH (21:19)
[2023-12-07] MEDS: QUEtiapine FUMARATE 100 MG TABLET (FP) PO SCH (21:35)
[2023-12-08] MEDS ORDERED: METHOCARBAMOL 500 MG TABLET PO PRN (11:04)
[2023-12-09] MEDS ORDERED: QUEtiapine FUMARATE 50 MG TABLET ONE (09:32)
[2023-12-09] MEDS: metFORMIN HCL 500 MG TABLET (FP) PO SCH (11:19)
[2023-12-09] MEDS: LISINOPRIL 10 MG TABLET PO SCH (11:19)
[2023-12-09] MEDS: METHOCARBAMOL 500 MG TABLET PO PRN (21:23)
[2023-12-10] MEDS: hydrOXYzine PAMOATE 25 MG CAPSULE (FP) PO PRN (06:29)
[2023-12-10] MEDS: LISINOPRIL 10 MG TABLET PO ONE (10:51)
[2023-12-10] MEDS: LIDOCAINE 5% TOPICAL PATCH TP SCH (10:51)
[2023-12-10] MEDS: NAPROXEN 500 MG TABLET PO ONE (18:54)
[2023-12-10] MEDS: BENZOCAINE 20 % GEL TUBE MM PRN (18:57)
[2023-12-10] MEDS: LIDOCAINE PATCH REMOVAL MC SCH (21:12)
[2023-12-11] MEDS ORDERED: INSULIN ASPART SLIDING SCALE (NOVOLOG) 1 VIAL SQ ONE (07:32)
[2023-12-11] MEDS: NAPROXEN 500 MG TABLET PO SCH (10:25)
[2023-12-11] MEDS: LISINOPRIL 20 MG TABLET PO SCH (10:25)
[2023-12-13] MEDS: DOCUSATE SODIUM 100 MG CAPSULE (FP) PO PRN (09:52)
[2023-12-15] MEDS ORDERED: QUEtiapine FUMARATE 50 MG TABLET ONE (21:22)
[2023-12-16] MEDS: ACETAMINOPHEN 325 MG TABLET (FP) PO PRN (00:52)
[2023-12-16 06:43] VITALS: BP 164/84; PULSE 75; RESP 20; TEMP 97.3
== END 2023-12-16 08:50 | disposition home or self-care (01) | DRG 772 ==
LOC: YASAS 14:52 → Y3NR 19:11 → Y3W 12-06 10:20
PROVIDERS: ADMIT Allergy & Immunology; ATTEND Psychiatry & Neurology Pain Medicine
PROC: HZ42ZZZ Group Counseling for Substance Abuse Treatment, Cognitive-Behavioral (ICD-10-PCS; principal; 2023-12-05)
DX: F10.20 Alcohol dependence, uncomplicated (principal); F14.20 Cocaine dependence, uncomplicated; F17.210 Nicotine dependence, cigarettes, uncomplicated; F20.9 Schizophrenia, unspecified; F31.9 Bipolar disorder, unspecified; F19.282 Other psychoactive substance dependence with psychoactive substance-induced sleep disorder; F19.280 Other psychoactive substance dependence with psychoactive substance-induced anxiety disorder; F19.24 Other psychoactive substance dependence with psychoactive substance-induced mood disorder; D50.9 Iron deficiency anemia, unspecified; I10 Essential (primary) hypertension; E11.9 Type 2 diabetes mellitus without complications; Z79.84 Long term (current) use of oral hypoglycemic drugs; M17.12 Unilateral primary osteoarthritis, left knee; K08.89 Other specified disorders of teeth and supporting structures; Z86.19 Personal history of other infectious and parasitic diseases; Z59.01 Sheltered homelessness
CPT/HCPCS: 36415; 72040-TC; 80053; 80305; 80307; 81003; 82962; 85027; 86780; 86803; 87811; 93005; 93010

== ENCOUNTER 2024-02-09 11:40 | Inpatient (IN) | payer OTHER ==
[2024-02-09 12:18] VITALS: BMI 25.4
[2024-02-09] MEDS ORDERED: BENZONATATE 200 MG CAPSULE PO PRN (14:08)
[2024-02-09] MEDS ORDERED: NALOXONE (NARCAN) HCL 4 MG/0.1 ML SPRAY NS PRN (14:08)
[2024-02-09] MEDS ORDERED: ACETAMINOPHEN 325 MG TABLET (FP) PO PRN (14:08)
[2024-02-09] MEDS ORDERED: NALOXONE HCL 0.4 MG/ML VIAL IM PRN (14:08)
[2024-02-09] MEDS ORDERED: guaiFENesin 600 MG TABLET.ER (FP) PO PRN (14:08)
[2024-02-09] MEDS ORDERED: POLYETHYLENE GLYCOL (HEALTHYLAX) 3350 17 GM PACKET PO PRN (14:08)
[2024-02-09] MEDS ORDERED: MAG HYDROX/AL HYDROX/SIMETH 30 ML UNIT-DOSE CUP PO PRN (14:08)
[2024-02-09] MEDS ORDERED: MAGNESIUM HYDROX 2400MG/30ML ORAL SUSPENSION 30 ML CUP PO PRN (14:08)
[2024-02-09] MEDS ORDERED: BENZOCAINE/MENTHOL (CHLORASEPTIC ) LOZENGE MM PRN (14:08)
[2024-02-09] MEDS ORDERED: IBUPROFEN 400 MG TABLET (FP) PO PRN (14:08)
[2024-02-09] MEDS ORDERED: hydrOXYzine PAMOATE 25 MG CAPSULE (FP) PO PRN (14:08)
[2024-02-09] MEDS ORDERED: LOPERAMIDE HCL 2 MG CAPSULE PO PRN (14:08)
[2024-02-09] MEDS: metFORMIN HCL 500 MG TABLET (FP) PO SCH (16:26)
[2024-02-09] MEDS: THIAMINE 100 MG TABLET PO SCH (21:10)
[2024-02-09] MEDS: QUEtiapine FUMARATE 100 MG TABLET (FP) PO SCH (21:10)
[2024-02-09] MEDS: MELATONIN 5 MG TABLETS PO SCH (21:10)
[2024-02-09] MEDS: IBUPROFEN 600 MG TABLET (FP) PO PRN (21:21)
[2024-02-10 07:28] VITALS: RESP 18; TEMP 96.8
[2024-02-10 08:57] VITALS: BP 156/78; PULSE 80
[2024-02-10] MEDS: PRENATAL VITAMINS W/ FOLIC ACID TABLET (FP) PO SCH (09:52)
[2024-02-10] MEDS: LISINOPRIL 10 MG TABLET PO SCH (09:52)
[2024-02-10] MEDS: QUEtiapine FUMARATE 100 MG TABLET (FP) PO SCH (22:02)
== END 2024-02-10 17:35 | disposition left against medical advice (07) | DRG 772 ==
LOC: YASAS 11:40 → Y3E 14:20
PROVIDERS: ADMIT Allergy & Immunology; ATTEND Psychiatry & Neurology Pain Medicine
PROC: HZ42ZZZ Group Counseling for Substance Abuse Treatment, Cognitive-Behavioral (ICD-10-PCS; principal; 2024-02-09)
DX: F10.20 Alcohol dependence, uncomplicated (principal); F14.20 Cocaine dependence, uncomplicated; F17.210 Nicotine dependence, cigarettes, uncomplicated; F20.9 Schizophrenia, unspecified; F19.94 Other psychoactive substance use, unspecified with psychoactive substance-induced mood disorder; F19.980 Other psychoactive substance use, unspecified with psychoactive substance-induced anxiety disorder; F91.8 Other conduct disorders; F90.9 Attention-deficit hyperactivity disorder, unspecified type; F20.0 Paranoid schizophrenia; F25.9 Schizoaffective disorder, unspecified; I10 Essential (primary) hypertension; E11.9 Type 2 diabetes mellitus without complications; D51.9 Vitamin B12 deficiency anemia, unspecified; M17.12 Unilateral primary osteoarthritis, left knee; Z87.438 Personal history of other diseases of male genital organs; Z86.69 Personal history of other diseases of the nervous system and sense organs; Z79.84 Long term (current) use of oral hypoglycemic drugs; Z56.0 Unemployment, unspecified; Z59.01 Sheltered homelessness
CPT/HCPCS: 80305; 80307; 82962; 87811; 93005; 93010